=== PATIENT | female | born 1955 | race Caucasian/White ===

== ENCOUNTER → 2023-06-02 | Outpatient (CLI) | payer MEDICARE, BC, SELFPAY ==
[2023-06-02 12:04] LABS: Absolute Lymphocyte Count 1.28 X10^3/uL (0.83-4.51); Absolute Neutrophil Count 2.4 X10^3/uL (2.0-7.7); Basophil# 0.04 X10^3/uL; Basophil% 0.9 % (0-1); Eosinophil# 0.12 X10^3/uL; Eosinophils% 2.7 % (0-5); Hematocrit 40.2 % (37-47); Hemoglobin 13.6 g/dL (12.0-15.0); Lymphocyte # 1.28 X10^3/ul (0.83-4.51); Lymphocyte % 28.5 % (19-41); Mean Corp Hgb Conc 33.8 g/dL (32-36); Mean Corpuscular Hgb 31.5 pg (27.0-32.0); Mean Corpuscular Volume 93.1 fL (81-99); Mean Platelet Vol. 10.7 fl (6.2-12.0); Monocyte# 0.63 X10^3/uL; NRBC Flagged by Analyzer 0 % (0-5); Neutrophil # 2.41 X10^3/uL (2.7-7.7); Neutrophil % 53.7 % (47-70); Platelet Count 247 K/mm3 (150-450); RBC Distribution Width CV 12.4 % (11.6-14.6); RBC Distribution Width SD 42.5 fl (35.1-43.9); Red Blood Count 4.32 M/mm3 (4.2-5.4); White Blood Count 4.5 K/mm3 (4.4-11.0)
[2023-06-02 13:49] LABS: ALB/GLOB Ratio 0.9 RATIO (0.9-2.4); AST(SGOT) 20 U/L (15-37); Alanine Aminotransfer ALT/SGPT 20 U/L (13-56); Albumin, Serum 3.5 g/dL (3.2-5.0); Alkaline Phosphatase 64 U/L (45-117); Anion Gap 5 (5-15); BUN 14 mg/dL (7-18); BUN/Creat Ratio 18.3 RATIO (10-20); Calcium,Total 9.8 mg/dL (8.5-10.1); Chloride 107 mmol/L (98-107); Creatinine, Serum 0.77 mg/dL (0.55-1.02); EST Glomerular Filtration Rate 79 mL/min (>60); Est Glom Filt Rate - Afr Amer 96 mL/min (>60); Ferritin 116 ng/mL (8-252); Globulin 3.8 g/dL (2.2-4.2); Glucose 93 mg/dL (74-106); Potassium 3.4 mmol/L (3.5-5.1); Protein, Total 7.3 g/dL (6.4-8.2); Sodium Level 140 mmol/L (136-145); T4 Free Direct 0.84 ng/dL (0.76-1.46); Thyroid Stim Hormone (TSH) 2.39 uIU/mL (0.358-3.74)
[2023-06-03 04:07] LABS: Thyroid Peroxidase AB 14 IU/mL (0-34)
[2023-06-03 16:09] LABS: Anti-Nuclear Antibody Test Positive (.)
== END | disposition home or self-care (01) ==
LOC: MTLAB 10:49
PROVIDERS: Referring Provider Physician Assistant; Visit Provider Physician Assistant
DX: L57.8 Other skin changes due to chronic exposure to nonionizing radiation (principal); L82.1 Other seborrheic keratosis; D22.5 Melanocytic nevi of trunk; L81.4 Other melanin hyperpigmentation; L57.0 Actinic keratosis; U07.1 COVID-19; L95.9 Vasculitis limited to the skin, unspecified; Z71.89 Other specified counseling; Z85.828 Personal history of other malignant neoplasm of skin; Z08 Encounter for follow-up examination after completed treatment for malignant neoplasm; X32.XXXA Exposure to sunlight, initial encounter
CPT/HCPCS: 36415; 80053; 82728; 84439; 84443; 85025; 86038; 86376

== ENCOUNTER → 2025-02-01 | Outpatient (CLI) | payer MEDICARE, BC, SELFPAY ==
[2025-02-03 11:08] LABS: H. PYLORI STOOL AG Negative (Negative)
== END | disposition home or self-care (01) ==
LOC: LABSPEC 09:16
PROVIDERS: PCP Nurse Practitioner Family; Referring Provider Nurse Practitioner Acute Care; Visit Provider Nurse Practitioner Acute Care
DX: R10.13 Epigastric pain (principal); R14.0 Abdominal distension (gaseous); R11.10 Vomiting, unspecified
CPT/HCPCS: 87338

== ENCOUNTER → 2025-02-04 | Outpatient (CLI) | payer MEDICARE, BC, SELFPAY ==
--- NOTE | 2025-02-04 09:19 | US_ITS ---
PROCEDURE: ABDOMEN LIMITED 02/04/2025 REASON FOR EXAM: ABDOMINAL PAIN, CHOLELITHIASIS TECHNIQUE: Complete abdominal ultrasound thompson-scale images with color doppler. PATIENT PREPARATION: Per protocol COMPARISON: None FINDINGS: Liver: Enlarged 18.9 cm. Normal echogenicity. Hepatopetal flow. Gallbladder: 1.8 cm gallstone. Gallbladder wall is not thickened. No pericholecystic fluid. Negative James's sign. Common bile duct: Measures 2.5 mm. No intrahepatic biliary dilatation.. Pancreas: Unremarkable Kidneys: The right kidney measures 10.2 cm. No hydronephrosis. US/Abdomen Limited IMPRESSION: Hepatomegaly. Cholelithiasis without acute cholecystitis. Reading Location: [id number]
== END | disposition home or self-care (01) ==
PROVIDERS: PCP Nurse Practitioner Family; Referring Provider Nurse Practitioner Acute Care; Visit Provider Nurse Practitioner Acute Care
DX: R10.13 Epigastric pain (principal); R14.0 Abdominal distension (gaseous); R11.10 Vomiting, unspecified
CPT/HCPCS: 76705

== ENCOUNTER 2025-04-05 07:32 | Day surgery (SDC) | payer MEDICARE, BC, SELFPAY ==
--- NOTE | 2025-04-02 18:54 | PAT.ANE_ITS ---
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 When Was Last Pacemaker Check QUESTION #4 FULL TEXT: You/Your Family Experience fever (hyperthermia) with Anesthesia Last Oral Intake Last Oral intake: Last Oral Intake NPO since Meds taken in AM with sips of water? 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 Has anyone observed you stop No 04/02/25 11:35 breathing during sleep? STOP Results Negative 04/02/25 11:35 QUESTION #5 FULL TEXT : Do you snore loudly (louder than talking or can be heard through closed doors)? 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 Specify any problems Hx of Preganancy in last 3 No 04/02/25 11:35 Months Nurse Filling Out Transfusion VCHRISTIN 04/02/25 11:35 & Questions: Date: 04/02/25 04/02/25 11:35 Time: 11:36 04/02/25 11:35 Patient unable to answer at this time (ie. 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: /Reproductive Hx- production lapping machine operator Hx Now No 04/02/25 11:35 Gestational Age (in weeks): EDC: Hx Hx Para Hx Section SAB No 04/02/25 11:35 [facility] Medical History (Updated 04/02/25 @ 11:35 by Ginger Wood) Wears glasses Post-menopausal Cancer Injury of back Migraine headache History of hiatal hernia Non-smoker Asthma Shortness of breath on exertion History of stress test History of echocardiogram Hypertension Cataracts, bilateral Skin cancer Cervical cancer Home Medications ?Medication ?Instructions ?Recorded ?Last Taken ?Type albuterol sulfate 90 mcg/actuation 2 puff inhalation Q 4H PRN 01/29/25 Unknown History aerosol inhaler (Ventolin HFA) shortness of breath or wheezing fluticasone 250 mcg-salmeterol 50 1 inh inhalation BID 01/29/25 Unknown History mcg/dose blistr powdr for inhalation (Advair Diskus) fluticasone propionate 50 1 spray intranasal BID PRN 0 01/29/25 Unknown History mcg/actuation nasal SEASONALLY spray,suspension (Flonase Allergy Relief) montelukast 10 mg tablet 10 mg PO QDAY 01/29/25 Unkno wn History diphenhydramine 25 1 tab PO QHS PRN sedation Unknown History mg-acetaminophen 500 mg tablet (Acetaminophen PM) sod picosulf 10 mg-magnes 3.5 175 ml PO .COMPLEX 1 dos e #350 mL 01/30/25 Unknown Rx gram-citric 12 gram/175 mL oral solution (Clenpiq) hydrochlorothiazide 12.5 mg capsule 12.5 mg PO DAILY 0 04/02/25 Unknown History lisinopril 40 mg tablet 40 mg PO DAILY 04/02/25 Unkn own History Allergy/AdvReac Type Severity Reaction Status Date / Time Sulfa (Sulfonamide Allergy Intermediate Rash Verified 04/02/25 11:16 Antibiotics) Family History Father Prostate cancer Myocardial infarction Hypertension Mother Arthritis Hypertension High cholesterol Cancer skin Surgical History H/O bilateral breast reduction surgery S/P total abdominal hysterectomy S/P laser cataract surgery History of hip surgery History of bladder surgery History of back surgery Social History Smoking Status: Never smoker alcohol intake: never substance use type: does not use what type of physical activity do you participate in: walking frequency: 5-6 times per week Audit: Pertinent Findings Pertinent Findings EKG Perinent findings: January 21, 2025. Sinus bradycardia at 51 bpm. No significant change from EKG of July 09, 2021. Stress test pertinent findings: January 22, 2025. No inducible ischemia. No infarct. Normal left ventricular function. EF is 70%. Echo (EF%) pertinent findings: January 22, 2025. EF of 60%. 2+ TR and RVSP of 28 mmHg. 1-2+ AI. No aortic stenosis noted. Consult pertinent findings: March 26, 2025. [facility]. 1. [id number] historically on lisinopril and hydrochlorothia zide. This had to be discontinued for hypokalemia. Currently on lisinopril and amlodipine with borderline blood pressure control. 2. Supraventricular tachycardia and sinus bradycardia. Electrophysiology consult for recommendations regarding bradycardia and symptomatic SVT. Additional pertinent findings: January 22, 2025. Predominant underlying rhythm was sinus. 35 supraventricular tachycardia runs noted. Isolated supraventricular ectopics were rare less than 1%. Isolated ventricular ectopics were rare less than 1%. 3 diary episodes of lightheadedness and fluttering correlated with sinus and artifact. No atrial fibrillation noted. Recommendation Anesthesia Recommendation Anesthesia recommendation: OPTIMIZED for anesthesia
[2025-04-05] VITALS (8 sets, daily range): BP systolic 85–105; BP diastolic 61–76; PULSE 60–71; RESP 16–17; TEMP 36.2–37; O2SAT 92–100; BMI 22.1
--- OUTSIDE RECORDS SUMMARY | 2025-04-05 07:41 | XMS RPT_ITS | CCD ---
Author Organization [facility] Care Team Providers Care Laboratory Scientist Name Role Phone Unavailable Primary Care Provider Unavaileric VILLANUEVA, DR LUCILA Gonzales Attending Unavaila ble RICH, DR LUCILA Gonzales Primary Care Unavaila ble RICH, DR LUCILA Gonzales Admitting Unavaila ble Unavailable Primary Care Provider Unavailabl e Unavailable Primary Care Provider Unavaileric e Unavailable Primary Care Provider Unavaileric e CAMERON PARACHUTE HARNESS RIGGER-ANIVAL, [place] Attending Unajennifer BARNES PARACHUTE HARNESS RIGGER-AUDIO PRODUCTION MANAGER, [place] Primary Care Unavai lable CAMERON PARACHUTE HARNESS RIGGER-AUDIO PRODUCTION MANAGER, [place] Attending Unavai lable CAMERON PARACHUTE HARNESS RIGGER-AUDIO PRODUCTION MANAGER, [place] Primary Care Unavai lable CAMERON PARACHUTE HARNESS RIGGER-AUDIO PRODUCTION MANAGER, [place] Attending Unavai lable CAMERON PARACHUTE HARNESS RIGGER-AUDIO PRODUCTION MANAGER, [place] Primary Care Unavai lable Cameron FLORIAN, [place] Primary Care Provider [phone] Cameron FLORIAN, [place] Primary Care Provider Kirill VAMP MAKER-CLucy Attending Provider SELF Referring Unavailable CAMERON FLORENCIA Primary Care Unavailable CHERYL SOTO Attending Unavailable SELF Referring Unavailable CAMERON [place]ORENCIA Primary Care Unavailable SRINIVAS AGUILAR Attending Unavailable Cameron VAMP MAKER-C, [place] Primary Care Provider [phone] Kirill RAMIREZ-Lucy Burk Referring Provider CAMERON BLACK-ANIVAL, [place] Attending Unavai labyolande BARNES APRN-AUDIO PRODUCTION MANAGER, [place] Primary Care Unavai lable CAMERON RUTHN-AUDIO PRODUCTION MANAGER, [place] Primary Care Unavai lable CAMERON PARACHUTE HARNESS RIGGER-AUDIO PRODUCTION MANAGER, [place] Attending Jackelin Robin Attending Unavailable Cameron, [place] Primary Care Unavailable Lucy Roy Attending Unavailable Lucy Roy Referring Unavailable Schnegg, [place] Primary Care Unavailable Lucy Roy Attending Unavailable Lucy Ryo Referring Unavailable Sunday Maxwell Attending Unavailable [facility], [place] Primary Care Unavailable Lucy Roy Attending Unavailable SCHNEGG, [place] Referring Unavailable SCHNEGG, [place] Primary Care Unavailable SCHNEGG, [place] Primary Care Unavailable MEGGAN HUNT Admitting Unavailable FAYE PAYTON Attending Unavailable LUCILA CHAVEZ Unavailable MEGGAN HUNT Referring Unavailable SCHNEGG, [place] Primary Care Unavailable SCHNEGG, [place] Primary Care Unavailable LINDA CARTER Attending Unavailable SCHNEGG, [place] Primary Care Unavailable LINDA CARTER Referring Unavailable SCHNEGG, [place] Primary Care Unavailable Allergies Allergy Classification Reported Allergen(s) Allergy Type Date of Onset Reaction(s) Facility (1 source) Sulfonamides (Antibiotic) Drug allergy (disorder) [facility] Repository (1 source) Sulfonamides (Antibiotic) Propensity to adverse reactions to drug 0 Rash [facility] (10 sources) Sulfonamides (Antibiotic); Translations: [SULFA (SULFONAMIDE ANTIBIOTICS)] Drug Allergy 0 Rash [facility] (3 sources) Sulfonamides (Antibiotic) Allergy to substance 5 Rash [facility] (1 source) Sulfonamides (Antibiotic) Drug allergy (disorder) 5 [facility] Repository Medications Current Medications Medication Drug Class(es) Dates Sig (Normalized) Sig (Original) acetaminophen 500 mg / diphenhydrAMINE hydrochloride 25 mg oral tablet (3 sources) Histamine-1 Receptor Antagonist Start: 01-30-2025 Diphenhydramine-A cetaminophen (Acetaminophen Pm) 25-500 mg tablet Active 1 {tbl} PO AT BEDTIME January 30, 2025 12:00am [id number] actuat albuterol 0.09 mg/actuat metered dose inhaler (11 sources) beta2-Adrenergic Agonist Start: 01-29-2025 Albuterol Sulfate (Ventolin Hfa) 90 mcg/actuation HFA aerosol inhaler Active 2 NMA INHALATION Q4H as needed January 29, 2025 12:00am Start: 09-06-2023 take 2 puff(s) by in halation every four hours as needed albuterol HFA (PROVENTIL HFA, VENTOLIN HFA) 90 mcg/actuation inhaler INHALE TWO PUFFS EVERY 4 HOURS NEEDED FOR WHEEZE 09/06/2023 Active Comment on above: INHALE TWO PUFFS TRACY RY 4 HOURS NEEDED FOR WHEEZE cephalexin 500 mg oral capsule (2 sources) Cephalosporin Antibacterial Start: End: take 1 capsule by mouth three times daily cephALEXin (KEFLEX) 500 mg capsule Indications: Acute cystitis with hematuria Take 1 capsule by mouth three times a day for 7 days. 21 capsule 02/06/2025 02/13/2025 Active Fluticasone Propion-Salmeterol (11 sources) Corticosteroid, beta2-Adrenergic Agonist Start: Fluticasone Propion-Salmeterol (Advair Diskus) 250-50 mcg/dose blister with device Active 1 NMA INHALATION TWICE A DAY January 29, 2025 12:00am Start: 10-05-2023 take 1 puff(s) by in halation twice daily fluticasone-salmeterol (ADVAIR, WIXELA) 250-50 mcg/dose inhaler INHALE 1 PUFF TWICE DAILY FOR 30 DAYS 10/05/2023 Active Start: 10-05-2023 take 1 puff(s) by in halation twice daily fluticasone-salmeterol (ADVAIR, WIXELA) 250-50 mcg/dose inhaler INHALE 1 PUFF TWICE DAILY FOR 30 DAYS 0 10/05/2023 Active Comment on above: INHALE 1 PUFF TWICE DAILY FOR 30 DAYS hydroCHLOROthiazide 12.5 mg oral capsule (2 sources) Thiazide Diuretic Start: 2024 End: 2024 take 1 capsule by mouth once daily hydroCHLOROthiazide 12.5 mg capsule Take 1 capsule by mouth once daily. 30 capsule 03/26/2025 04/25/2025 Active hydroCHLOROthiazide 12.5 mg / lisinopril 20 mg oral tablet (6 sources) Thiazide Diuretic, Angiotensin Converting Enzyme Inhibitor Start: 2024 Lisinopril-Hydrochloroth iazide 20-12.5 mg tablet Active 1 {tbl} PO daily January 29, 2025 12:00am Start: 09-19-2023 take 1 tablet by shantelle th once lisinopril-hydroCHLOROthiazide (ZESTORET IC) 20-12.5 mg per tablet Take 1 tablet by mouth every afternoon. 09/19/2023 Active Comment on above: Take 1 tablet by shantelle th every afternoon. lisinopril 20 mg oral tablet (6 sources) Angiotensin Converting Enzyme Inhibitor Start: 04-04-2025 take 0.5 tablet by mouth once daily lisinopril (ZESTRIL) 20 mg tablet Take 0.5 tablets by mouth once daily. 90 tablet 04/04/2025 Active Start: 01-23-2025 End: 04-04-2025 take 1 tablet by mouth once daily lisinopril (ZESTRIL) 20 mg tablet Take 1 tablet by mouth once daily. 90 tablet 01/23/2025 04/04/2025 Discontinued (Adjust Sig - Block E-Cancel) montelukast 10 mg oral tablet (11 sources) Leukotriene Receptor Antagonist Start: 10-05-2023 take 1 tablet by mouth once montelukast (SINGULAIR) 10 mg tablet Take 1 tablet by mouth every afternoon. 10/05/2023 Active Comment on above: Take 1 tablet by shantelle th every afternoon. ondansetron 4 mg disintegrating oral tablet (3 sources) Serotonin-3 Receptor Antagonist Start: 01-30-2025 take 2 tablets by mouth every two hours as needed, then take 1 tablet by mouth every four hours as needed Ondansetron 4 mg tablet,disintegra ting Active 4 mg PO Q8H 5 January 30, 2025 12:00am take two tablets PO two hours prior to start of bowel prep and one every 4 hours as needed for N/V Sod Picosulf-Mag Ox-Citric Ac (3 sources) Start: 01-30-2025 Sod Picosulf-Mag Ox-Citric Ac (Clenpiq) 10 mg-3.5 gram- 12 gram/175 mL solution Active 175 mL PO .COMPLEX 350 January 30, 2025 12:00am 175 mL orally; as directed for split dose bowel prep traZODone hydrochloride 50 mg oral tablet (3 sources) Serotonin Reuptake Inhibitor Start: 02-26-2025 traZODone (DESYREL) 50 mg tablet Take 25 mg by mouth daily at bedtime. 02/26/2025 Active Completed/Discontinued Medications Medication Drug Class(es) Dates Sig (Normalized) Sig (Original) amLODIPine 5 mg oral tablet (2 sources) Dihydropyridine Calcium Channel Marian Start: 03-19-2025 End: 03-26-2025 take 1 tablet by mouth once daily amLODIPine (NORVASC) 5 mg tablet Take 1 tablet by mouth once daily. 03/19/2025 03/26/2025 Discontinued (Course of therapy completed) fluticasone propionate 0.05 mg/actuat metered dose nasal spray (6 sources) Corticosteroid Start: 01-29-2025 End: 03-26-2025 fluticasone (FLONASE) 50 mcg/actuation nasal spray Use 50 mcg in the nose two times a day. 01/29/2025 03/26/2025 Discontinued Start: 10-12-2024 End: 10-19-2024 take 1 spray(s) nasal route twice daily fluticasone (FLONASE) 50 mcg/actuation nasal spray Indications: Upper respiratory tract infection, unspecified type Use 1 [place] in each nostril two times a day for 7 days. 18.2 mL 10/12/2024 10/19/2024 Active gadobutrol (GADAVIST) injection 2 mL (1 source) Start: 09-26-2019 End: 09-26-2019 gadobutrol (GADAVIST) injection 2 mL iopamidol (ISOVUE-300) 61 % injection 25 mL (1 source) Start: 09-26-2019 End: 09-26-2019 iopamidol (ISOVUE-300) 61 % injection 25 mL pantoprazole 40 mg delayed release oral tablet (4 sources) Proton Pump Inhibitor Start: 02-04-2025 End: 03-26-2025 take 1 tablet by mouth once daily before breakfast pantoprazole DR (PROTONIX) 40 mg tablet Take 40 mg by mouth daily before breakfast. 02/05/2025 03/26/2025 Discontinued Problems Active Problems Problem Classification Problem Date Documented Da te Episodic/Chronic Abdominal pain (12 sources) Epigastric pain; Translations: [Epigastric pain] Onset: 5 01-30-2025 Episodic Asthma (11 sources) Asthma-chronic obstructive pulmonary disease overlap syndrome; Translations: [Asthma-chronic obstructive pulmonary disease overlap syndrome] Onset: 5 01-29-2025 Chronic Comment on above: a result of inhaling a herbacide sprayed at work in 1993 Cardiac dysrhythmias (5 sources) Supraventricular tachycardia; Translations: [SVT (supraventricular tachycardia) (HCC)] Onset: 5 03-26-2025 Chronic Cardiac dysrhythmias (11 sources) Sinus bradycardia; Translations: [Bradycardia, unspecified] Onset: 5 01-29-2025 Episodic Deficiency and other anemia (9 sources) Anemia; Translations: [Anemia, unspecified] Onset: 5 01-30-2025 Episodic Essential hypertension (14 sources) Essential (primary) hypertension; Translations: [Hypertensive disorder] Onset: 3 Chronic Fluid and electrolyte disorders (8 sources) Hypokalemia; Translations: [Hypokalemia] Onset: 5 01-29-2025 Episodic Genitourinary symptoms and ill-defined conditions (7 sources) Hematuria, unspecified; Translations: [Unspecified abnormal findings in urine] Onset: 3 Episodic Nausea and vomiting (7 sources) Vomiting; Translations: [Vomiting, unspecified] Onset: 5 01-30-2025 Episodic Nonspecific chest pain (6 sources) Chest pain; Translations: [Chest pain, unspecified] Onset: 5 01-21-2025 Episodic Osteoarthritis (6 sources) Arthritis; Translations: [Unspecified osteoarthritis, unspecified site] Onset: 5 01-30-2025 Chronic Other gastrointestinal disorders (6 sources) Abdominal bloating; Translations: [Abdominal distension (gaseous)] 01-30-2025 Episodic Other gastrointestinal disorders (1 source) Abdominal distension (gaseous); Translations: [Abdominal distension (gaseous)] Onset: 5 Episodic Other upper respiratory disease (3 sources) Seasonal allergy; Translations: [Other seasonal allergic rhinitis] 01-30-2025 Chronic Residual codes; unclassified (2 sources) Pain, unspecified; Translations: [Pain, unspecified] Onset: 1 Episodic Urinary tract infections (2 sources) Acute cystitis; Translations: [Acute cystitis with hematuria] Onset: 5 02-06-2025 Episodic Viral infection (1 source) COVID-19; Translations: [COVID-19] Onset: Past or Other Problems Problem Classification Problem Date Documented Da te Episodic/Chronic Other screening for suspected conditions (not mental disorders or infectious disease) (1 source) Encounter for screening mammogram for malignant neoplasm of breast; Translations: [Encounter for screening mammogram for malignant neoplasm of breast] Onset: 10-05-2024 Episodic Other upper respiratory infections (2 sources) Upper respiratory infection; Translations: [Acute upper respiratory infection, unspecified] Onset: 10-12-2024 10-12-2024 Episodic Results Test Name Value Interpretation Reference Range Facility Basic metabolic 2000 panelon 04-03-2025 Anion gap [Moles/Vol] 7 mmol/L Normal 5-16 [facility] Comment on above: Order Comment: Speci men Type: BLOOD SPECIMENOrdering Facility: [facility] Address: [address] [place] [address] Performed By: #### 2 4321-2, ####[facility] LABORATORYCLIA [id number] [place] [address] [place] Calcium [Mass/Vol] 9.6 mg/dL Normal 8.5-10.5 [facility] Comment on above: Order Comment: Speci men Type: BLOOD SPECIMENOrdering Facility: [facility] Address: [address] [place] [address] Performed By: #### 2 4321-2, ####[facility] LABORATORYCLIA [id number] [place] [address] [place] Chloride [Moles/Vol] 105 mmol/L Normal 98-107 [facility] Comment on above: Order Comment: Speci men Type: BLOOD SPECIMENOrdering Facility: [facility] Address: [address] [place] [address] Performed By: #### 2 4321-2, ####[facility] LABORATORYCLIA [id number] [place] [id number] [place] CO2 [Moles/Vol] 30 mmol/L Normal 21-32 [facility] Comment on above: Order Comment: Speci men Type: BLOOD SPECIMENOrdering Facility: [facility] Address: [address] [place] [address] Performed By: #### 2 4321-2, ####[facility] LABORATORYCLIA [id number] [place] [id number] [place] Creatinine [Mass/Vol] 0.87 mg/dL Normal 0.51-0.95 [facility] Comment on above: Order Comment: Speci men Type: BLOOD SPECIMENOrdering Facility: [facility] Address: [address] [place] [address] Result Comment: Lillian ents receiving either N-Acetylcysteine (NAC) or Metamizole prior to venipuncture, may have falsely depressed results. Performed By: #### 2 432-2, ####[facility] LABORATORYCLIA [id number] [place] [id number] [place] [facility] eGFRcr SerPlBld CKD-EPI 2020 72 mL/min/1.73m??? Normal >=60 [facility] Comment on above: Order Comment: Ektai keisha Type: BLOOD SPECIMENOrdering Facility: [facility] Address: [address] [place] [address] Result Comment: Jada mated Glomerular Filtration Rate (eGFR) is calculated using the 2020 CKD-EPI creatinine equation. This equation utilizes serum creatinine, sex, and age as parameters. The creatinine assay has traceable calibration to isotope dilution-mass spectrometry. Refer to KDIGO guidelines for clinical interpretation. In patients with unstable renal function, e.g. those with acute kidney injury, the eGFR may not accurately reflect actual GFR. Performed By: #### 2 4321-2, ####[facility] LABORATORYCLIA [id number] [place] [id number] [place] Glucose [Mass/Vol] 92 mg/dL Normal 70-100 [facility] Comment on above: Order Comment: Ektacornell keisha Type: BLOOD SPECIMENOrdering Facility: [facility] Address: [address] [place] [address] Result Comment: The [place] [employer] (ADA) provides guidance for cutoff values for fasting glucose and random glucose. The ADA defines fasting as no caloric intake for at least 8 hours. Fasting plasma glucose results between 100 to 125 mg/dL indicate increased risk for diabetes (prediabetes). Fasting plasma glucose results greater than or equal to 126 mg/dL meet the criteria for diagnosis of diabetes. In the absence of unequivocal hyperglycemia, results should be confirmed by repeat testing. In a patient with classic symptoms of hyperglycemia or hyperglycemic crisis, random plasma glucose results greater than or equal to 200 mg/dL meet the criteria for diagnosis of diabetes. Reference: Standards of Medical Care in Diabetes 2016, [place] [employer]. Diabetes Care. 2016.39(Suppl 1). Results may be falsely elevated after the administration of Sulfapyridine. Results may be falsely depressed after the administration of Sulfasalazine. Performed By: #### 2 43209-06, ####[facility] LABORATORYCLIA [id number] [place] [address] [place] Potassium [Moles/Vol] 3.7 mmol/L Normal 3.5-5.1 [facility] Comment on above: Order Comment: Speci men Type: BLOOD SPECIMENOrdering Facility: [facility] Address: [address] [place] [address] Performed By: #### 2 4320-10, ####[facility] LABORATORYCLIA [id number] [place] [address] [place] Sodium [Moles/Vol] 142 mmol/L Normal 136-145 [facility] Comment on above: Order Comment: Speci men Type: BLOOD SPECIMENOrdering Facility: [facility] Address: [address] [place] [address] Performed By: #### 2 4320-10, ####[facility] LABORATORYCLIA [id number] [place] [address] [place] Urea nitrogen [Mass/Vol] 17 mg/dL Normal 7-26 [facility] Comment on above: Order Comment: Speci men Type: BLOOD SPECIMENOrdering Facility: [facility] Address: [address] [place] [address] Performed By: #### 2 4320-10, 06820-7 ####[facility] LABORATORYCLIA [id number] [place] [id number] [facility] Danni 04-03-2025 GERTRUDIS Telephone (FRANDY) MARCI GALAN Pepper ([id number]) 1955 F Date Time Provider Department 04/03/25 LINDA CARTER During your visit today, we recorded the following information about you: Winter Soto MA 04/03/2025 9:21 AM Signed Patient dropped off BP log: JULY Salazar Angelica M, WAYNE.AUDIO PRODUCTION MANAGER 04/04/2025 7:06 AM Signed Received updated blood pressure readings from patient after stopping amlodipine and restarting hydrochlorothiazide 12.5 mg along with continuing lisinopril 20 mg daily on 03/26/2025. Some of these blood pressures are on the lower side. Please see how she is feeling. If she is feeling fine would leave medication regimen as is. If she is having fatigue or feeling lightheaded would reduce lisinopril dose. Blood work done 04/03/2025 for monitoring with medication change looks fine. No concerns with kidney function or electrolytes. Thank you, iLnda Carter (Angel), MSN, PARACHUTE HARNESS RIGGER, AUDIO PRODUCTION MANAGER Alfie Fernández RN 04/04/2025 9:11 AM Signed Call placed to Marci at this time. She was informed of Mau's comments and recommendations in detail as below. She admits to feeling general fatigue with the lower BP readings. She was advised that she could trial decreasing her Lisinopril from 20mg PO daily to 10mg (1/2 tablet) PO daily. She was encouraged to continue to monitor her BP and check in with Mau in about one week regarding her BP log/measurements. She was informed of the results of her labs performed yesterday, for which she expressed understanding. She was encouraged to call the office for any questions or concerns. She verbalized understanding and expressed appreciation for the call. Alfie Fernández, RN April 04, 2025 9:08 AM Linda Carter APRN.AUDIO PRODUCTION MANAGER 04/04/2025 10:26 AM Signed Updates noted. Medication list already updated to reflect reduce lisinopril dose of 10 mg daily. Will await symptom and blood pressure update. Thank you, Linda Carter (Angel), MSN, PARACHUTE HARNESS RIGGER, AUDIO PRODUCTION MANAGER Allergies As of Date: 04/03/2025 Noted Allergy Reaction SULFA (SULFONAMIDE ANTIBIOTICS) 09/26/2019 2 - Rash Date Reviewed: 02/06/2025 Reviewed by: Lili Coles LPN - Fully Assessed Reason for Visit: Results [95] Cmt: Blood pressures Order(s):lisinopril (ZESTRIL) 20 mg tabletTake 0.5 tablets by mouth once daily.Disp: 90 tabletRfl: 0 Prescriptions as of 04/04/2025 - lisinopril (ZESTRIL) 20 mg tablet Take 0.5 tablets by mouth once daily. - hydroCHLOROthiazide 12.5 mg capsule Take 1 capsule by mouth once daily. - traZODone (DESYREL) 50 mg tablet Take 25 mg by mouth daily at bedtime. - albuterol HFA (PROVENTIL HFA, VENTOLIN HFA) 90 mcg/actuation inhaler INHALE TWO PUFFS EVERY 4 HOURS NEEDED FOR WHEEZE - fluticasone-salmetero l (ADVAIR, WIXELA) 250-50 mcg/dose inhaler INHALE 1 PUFF TWICE DAILY FOR 30 DAYS - montelukast (SINGULAIR) 10 mg tablet Take 1 tablet by mouth every afternoon. Problem List As Of Date 04/03/2025 Noted Resolved Chest pain, moderate coronary artery risk [R07.*01/21/2025 HTN (hypertension) [I10] 01/22/2025 Asthma with chronic obstructive pulmonary disea*01/22/2025 Acute hypokalemia [E87.6] 01/22/2025 Sinus bradycardia [R00.1] 01/22/2025 Anemia [D64.9] 03/25/2025 Arthritis [M19.90] 03/25/2025 Epigastric pain [R10.13] 02/07/2025 SVT (supraventricular tachycardia) (HCC) [I47.1* Prescriptions ordered this encounter Disp Refills Start End LISINOPRIL 20 MG TABLET 90 t* 0 04/04/2025 Class: Med Update Route: PO Sig: Take 0.5 tablets by mouth once daily. Cosign required by LINDA CARTER[[id number]] Medications Discontinued During This Encounter Prescriptions - lisinopril (ZESTRIL) 20 mg tablet (Discontinued) Take 40 mg by mouth once daily. Encounter Status:Closed by LINDA CARTER on 04/04/25 Normal [facility] Magnesium SerPl-mCncon 04-03 Magnesium [Mass/Vol] 1.9 mg/dL Normal 1.6-2.6 [facility] Comment on above: Order Comment: Speci men Type: BLOOD SPECIMENOrdering Facility: [facility] Address: [address] [place] [address] Performed By: #### 2 4321-2, 08606-5 ####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 When Was Last Pacemaker Check QUESTION #4 FULL TEXT: You/Your Family Experience fever (hyperthermia) with Anesthesia Last Oral Intake Last Oral intake: Last Oral Intake NPO since Meds taken in AM with sips of water? 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 Has anyone observed you stop No 04/02/25 11:35 breathing during sleep? STOP Results Negative 04/02/25 11:35 QUESTION #5 FULL TEXT : Do you snore loudly (louder than talking or can be heard through closed doors)? 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 Specify any problems Hx of Preganancy in last 3 No 04/02/25 11:35 Months Nurse Filling Out Transfusion VCHRISTIN 04/02/25 11:35 Questions: Date: 04/02/25 04/02/25 11:35 Time: 11:36 04/02/25 11:35 Patient unable to answer at this time (ie. confused, unrespo /Reproductio n History /Reproductiv e History - snow plow operator: /Reproductiv e Hx- snow plow operator Hx Now No 04/02/25 11:35 Gestational Age (in weeks): EDC: Hx Hx Para Hx Section SAB No 04/02/25 11:35 [facility] Medical History (Updated 04/02/25 @ 11:35 by Ginger Wood) Wears glasses Post-menopausal Cancer Injury of back Migraine headache History of hiatal hernia Non-smoker Asthma Shortness of breath on exertion History of stress test History of echocardiogram Hypertension Cataracts, bilateral Skin cancer Cervical cancer Home Medications ???Medication ???Instructions ???Recorded ???Last Taken ???Type albuterol sulfate 90 mcg/actuation 2 puff inhalation Q4H PRN Unknown History aerosol inhaler (Ventolin HFA) shortness of breath or wheezing fluticasone 250 mcg-salmeterol 50 1 inh inhalation BID 01/29/25 Unk nown History mcg/dose blistr powdr for inhalation (Advair Diskus) fluticasone propionate 50 1 spray intranasal BID PRN 5 Unknown History mcg/actuation nasal SEASONALLY spray,suspension (Flonase Allergy Relief) (more content not included)... Normal [facility] Vicki 03-26-2025 CNOV Office Visit (CARMOB ) MARCI GALAN ([id number]) 1955 F Date Time Provider Department 03/26/25 1:30 PM LINDA CARTER During your visit today, we recorded the following information about you: Pulse Blood pressure Weight Height 73/minute 130/88 64.9 kg 1.676 m Linda Carter APRN.AUDIO PRODUCTION MANAGER 04/04/2025 7:02 AM Addendum Heart, Vascular and Thoracic Winifred Zoya Corrales Department of Cardiovascular Medicine [facility] OUTPATIENT VISIT 03/26/2025 HOSPITAL FOLLOW-UP (new to [facility] office) PRIMARY CARE PHYSICIAN: Florencia Barnes, AUDIO PRODUCTION MANAGER [address] [facility] [address] [place] [address] CHIEF COMPLAINT: Hospital follow-up HISTORY OF PRESENT ILLNESS: Marci Galan is a 69 year old female patient known to Dr Chavez (last seen by Dr Chavez as inpatient cardiology consult on 01/22/2025) with PMHx hypertension, basal cell carcinoma, cervical cancer s/p total hysterectomy, and asthma. Marci is here today for general cardiology follow-up visit. Today is my first time meeting/caring for Marci. Admitted to [facility] 01/21/2025 - 01/22/2025 for epigastric pain/chest pain after eating smoothie. Prior heart cath decades ago reported as normal. Echocardiogram 01/22/2025 showed normal EF of 60%, moderate TR. NM MPI 01/22/2025 normal without inducible ischemia. Hydrochlorothiazide discontinued for episodes of feeling lightheaded with standing. Cardiac medications at discharge 01/22/2025: - Lisinopril 20 mg daily Type of Monitor: Extended Monitoring-Zio Patch Enrollment Dates: 01/22/2025-02/05/2025 IRHYTHM FINDINGS: Patient had a min HR of 40 bpm around 4:54 am , max HR of 144 bpm, and avg HR of 67 bpm. Predominant underlying rhythm was Sinus Rhythm. 35 Supraventricular Tachycardia runs occurred, the run with the fastest interval lasting 12 beats with a max rate of 194 bpm, the longest lasting 17.7 secs with an avg rate of 109 bpm. Isolated SVEs were rare (<1.0%), SVE Couplets were rare (<1.0%), and SVE Triplets were rare (<1.0%). Isolated VEs were rare (<1.0%), VE Couplets were rare (<1.0%), and no VE Triplets were present. 3 dairy episodes - light headed /flutter correlated with sinus and artifact. Lot of artifacts noted in the monitor. No a.fib noted. Since discharge, she was treated for UTI by PCP. Marci reports feeling good from a cardiac standpoint. No chest pain, shortness of breath, orthopnea, cough, edema, PND, syncope, or bleeding. Does have palpitations. Occasional lightheaded episodes and palpitations that on monitor correlated with SVT. Lisinopril increased to 40 mg daily after discharge by PCP because blood pressure was 162 systolic. Historically her blood pressure runs low 100s systolic when was on lisinopril-HCTZ 20-12.5 which she had been on for many years. No added salt, no fast food, no fried foods, lots of vegetables, does not eat meat, does eat diary, also eats occasional pickled egg. Has been told that she had/passed gallstone after discharge. Smoking: No. Alcohol: No. Recreational drug use: No. Cardiac medications reconciled today with patient and are as per medication list. STOP BANG Questionnaire 1. Snoring Do you snore loudly (louder than talking or loud enough to be heard through closed doors)? NO 2. Tired Do you often feel tired, fatigued, or sleepy during daytime? YES 3. Observed Has anyone observed you stop breathing during your sleep? NO 4. Blood Pressure Do you have or are you being treated for high blood pressure? YES 5. BMI BMI more than 35 kg/m2? NO 6. Age Age over 50 yr old? YES 7. Neck circumference Neck circumference greater than 40 cm? NO 8. Gender Gender male? NO * Neck circumference is measured by staff High risk of ANGIE: answering yes to three or more items Low risk of ANGIE: answering yes to less than three items PAST MEDICAL HISTORY: PAST MEDICAL HISTORY Diagnosis Date Anemia 03/25/2025 Arthritis 03/25/2025 Asthma with chronic obstructive pulmonary disease (COPD) (HCC) 01/22/2025 Cervical cancer (HCC) Chest pain, moderate coronary artery risk 01/21/2025 Epigastric pain 02/07/2025 HTN (hypertension) 01/22/2025 Sinus bradycardia 01/22/2025 Skin cancer PAST SURGICAL HISTORY: PAST SURGICAL HISTORY Procedure Laterality Date BACK SURGERY HX 2000 BLADDER SURGERY HX HIP SURGERY HX Right 2019 POST-CATARACT LASER SURGERY Bilateral 2022 TOTAL ABDOM HYSTERECTOMY FAMILY HISTORY: FAMILY HISTORY Problem Relation Age of Onset Prostate Cancer Father SOCIAL HISTORY: Social History Tobacco Use Smoking status: Never Smokeless tobacco: Never Vaping Use Vaping status: Never Used Substance Use Topics Alcohol use: Never Drug use: Never ALLERGIES: Sulfa (Sulfonamide Antibiot (more content not included)... [facility] .GFRon 03-19-2025 Estimated Glomerular Filtration Rate 82 ml/min/1.73sqm [facility] MAIN Comment on above: Result Comment: Stages of Chronic Kidney Disease (CKD) Stage Description eGFR(ml/min/1.73 sq.m.) CKD 1 Normal kidney function or >=90 normal kindney function with possible kidney damage (ex. Proteinuria) CKD 2 Kidney damage with mild loss 60-89 of kidney function CKD 3a Mild to moderate loss of kidney 45-59 function CKD 3b Moderate to severe loss of 30-44 of kindey function CKD 4 Severe loss of kidney function 15-29 CKD 5 Kidney failure <15 Note: (go live 2024) the eGFR calculation was updated to the 2020 CKD-EPI creatinine equation without a race factor to calculate the eGFR results. Performed By: #### B MP, GFR #### [address] [address] BMPon 03-19-2025 BUN/Creatinine Ratio 17.9 ratio Normal 10.0-22.0 [facility] MA[facility] Comment on above: Performed By: #### B MP, GFR #### [address] [address] Calcium [Mass/Vol] 9.4 mg/dL Normal 8.7-10.4 [facility] MAIN Comment on above: Performed By: #### B MP, GFR #### [address] [address] Chloride [Moles/Vol] 109 mmol/L Normal 98-110 [facility] Comment on above: Performed By: #### B MP, GFR #### [address] [address] CO2 [Moles/Vol] 27 mmol/L Normal 22-32 [facility] Comment on above: Performed By: #### B MP, GFR #### [address] [address] Creatinine [Mass/Vol] 0.78 mg/dL Normal 0.50-1.20 [facility] MA[facility] Comment on above: Result Comment: Test ing performed on [employer] analyzer using enzymatic creatinine methodology. Performed By: #### B MP, GFR #### [address] [address] Electrolyte Balance 9.0 mEq/L Normal 4.0-15.0 [facility] MA[facility] Comment on above: Performed By: #### B MP, GFR #### [address] [address] Glucose [Mass/Vol] 84 mg/dL Normal 82-115 [facility] MAIN Comment on above: Performed By: #### B MP, GFR #### [address] [address] Potassium [Moles/Vol] 4.3 mmol/L Normal 3.5-5.0 [facility] Comment on above: Performed By: #### B MP, GFR #### [address] [address] Sodium [Moles/Vol] 145 mmol/L Normal 136-145 [facility] MA[facility] Comment on above: Performed By: #### B MP, GFR #### [address] [address] Urea nitrogen [Mass/Vol] 14.0 mg/dL Normal 8.0-22.0 [facility] MA[facility] Comment on above: Performed By: #### B MP, GFR #### [address] [address] Danni 02-07-2025 [place]N Telephone [place] ADAMAMARCI COREA ([id number]) 1955 F Date Time Provider Department 02/07/25 AURELIA SAEZ During your visit today, we recorded the following information about you: Aurelia Saez APRN.AUDIO PRODUCTION MANAGER 02/07/2025 1:29 PM Signed Please advise urine culture shows possible contamination. Recommending to finish out out Keflex but if symptoms persist or worsen follow up with PCP. Thanks! Allergies As of Date: 02/07/2025 Noted Allergy Reaction SULFA (SULFONAMIDE ANTIBIOTICS) 09/26/2019 2 - Rash Date Reviewed: 02/06/2025 Reviewed by: Lili Coles LPN - Fully Assessed Prescriptions as of 02/08/2025 - cephALEXin (KEFLEX) 500 mg capsule Take 1 capsule by mouth three times a day for 7 days. - lisinopril (ZESTRIL) 20 mg tablet Take 1 tablet by mouth once daily. - albuterol HFA (PROVENTIL HFA, VENTOLIN HFA) 90 mcg/actuation inhaler INHALE TWO PUFFS EVERY 4 HOURS NEEDED FOR WHEEZE - fluticasone-salmetero l (ADVAIR, WIXELA) 250-50 mcg/dose inhaler INHALE 1 PUFF TWICE DAILY FOR 30 DAYS - montelukast (SINGULAIR) 10 mg tablet Take 1 tablet by mouth every afternoon. Problem List As Of Date 02/07/2025 Noted Resolved Chest pain, moderate coronary artery risk [R07.*01/21/2025 HTN (hypertension) [I10] 01/22/2025 Asthma with chronic obstructive pulmonary disea*01/22/2025 Acute hypokalemia [E87.6] 01/22/2025 Sinus bradycardia [R00.1] 01/22/2025 Encounter Status:Closed by AURELIA SAEZ on 02/08/25 [facility] Bacteria Ur Culton Bacteria identified Cx Nom (U) ORGANISM ID: 1 10,000 -<50,000 CFU/ml Mixed microbiota No further workup. Mixed microbiota can be due to???urine???contamin ation with skin bacteria at time of collection or presence of a long-term urinary catheter. If a new culture is needed, please consider re-education of the patient on proper midstream collection technique or straight catheterization for???urine???collect ion. [facility] Comment on above: Performed By: #### 6 30-4 #### [facility] CLIA [id number] [address] [place] [address] OF [facility] CNOVon 02-06-2025 CNOV Office Visit (UCUPNO ) MARCI GALAN ([id number]) 1955 F Date Time Provider Department 02/06/25 9:40 AM CHERYL SOTO During your visit today, we recorded the following information about you: Temperature Pulse Respiration Blood pressure 97.9 degrees 63/minute 18/minute 135/87 Weight 66.3 kg Lili Coles LPN 02/06/2025 10:03 AM Signed Urine sample collected. VINCE Chavez Jessica L, PARACHUTE HARNESS RIGGER.AUDIO PRODUCTION MANAGER 02/06/2025 10:03 AM Signed [facility] February 06, 2025 HPI Patient presents to [facility] for 1 day history of urinary tract infection symptoms. Patient states throughout the night she developed burning with urination as well as urgency and frequency. Patient states she completed a cleanse 1 week ago. States that she was on the cleanse for 10 days. Was able to eat fruit as well as have water and pureed vegetables. Patient states she lost 8 pounds during this cleanse. States that she has since gained that weight back. Has had lower back pain. Denies any fever. States she started the cleanse when diagnosed with gallstones recently. Denies any hematuria, fever, vomiting, pelvic pressure. PAST MEDICAL HISTORY Diagnosis Date Cervical cancer (HCC) Skin cancer PAST SURGICAL HISTORY Procedure Laterality Date BACK SURGERY HX 1999 BLADDER SURGERY HX HIP SURGERY HX Right 2019 POST-CATARACT LASER SURGERY Bilateral 2022 TOTAL ABDOM HYSTERECTOMY FAMILY HISTORY Problem Relation Age of Onset Prostate Cancer Father Social History Tobacco Use Smoking status: Never Smokeless tobacco: Never Vaping Use Vaping status: Never Used Substance Use Topics Alcohol use: Never Drug use: Never ALLERGIES Allergen Reactions Sulfa (Sulfonamide * Rash There is no immunization history on file for this patient. Current Medications lisinopril (ZESTRIL) 20 mg tablet Take 1 tablet by mouth once daily. albuterol HFA (PROVENTIL HFA, VENTOLIN HFA) 90 mcg/actuation inhaler INHALE TWO PUFFS EVERY 4 HOURS NEEDED FOR WHEEZE fluticasone-salmetero l (ADVAIR, WIXELA) 250-50 mcg/dose inhaler INHALE 1 PUFF TWICE DAILY FOR 30 DAYS montelukast (SINGULAIR) 10 mg tablet Take 1 tablet by mouth every afternoon. Review of Systems Constitutional: Negative for fever. Genitourinary: Positive for dysuria and frequency. Negative for flank pain, hematuria and pelvic pain. Vital Signs BP 151/87 Pulse 63 Temp 97.9 Resp 18 Wt 146 lb 2.6 oz (66.3kg) SpO2 97% Physical Exam Vitals reviewed. Constitutional: General: She is not in acute distress. Appearance: Normal appearance. She is not ill-appearing, toxic-appearing or diaphoretic. HENT: Head: Normocephalic and atraumatic. Abdominal: Tenderness: There is no right CVA tenderness or left CVA tenderness. Skin: General: Skin is warm and dry. Capillary Refill: Capillary refill takes less than 2 seconds. Neurological: Mental Status: She is alert and oriented to person, place, and time. Psychiatric: Mood and Affect: Mood normal. Behavior: Behavior normal. Thought Content: Thought content normal. Judgment: Judgment normal. ASSESSMENT/PLAN: 1. Acute cystitis with hematuria - ICD9: 595.0, ICD10: N30.01 (primary diagnosis) Increase fluids Avoid caffeine or carbonated drinks at this time Take all medications as ordered ER right away if you note a fever over 100.7, nausea, vomiting, and low back pain. Go to ER - CEPHALEXIN 500 MG CAPSULE 2. Dysuria - ICD9: 788.1, ICD10: R30.0 acute - UA positive for navdeep esterase, hematuria, and proteinuria - Send urine for culture - Begin treatment with Keflex for 7 days - Patient education for prevention given - BACTERIAL CULTURE, URINE - UA DIP, URINE (POC) Cheryl Soto APRN.CNP Medical Decision Making: Problems: Low: 2+ self-limited or minor problems Data: Unique test result(s) reviewed: 2 Unique test(s) ordered: 2 Risk: Moderate: Drug management Medical Decision Making Level: 4 - Moderate Cheryl Soto APRN.CNP The patient/caregiver consented to the use of [employer] software for draft documentation of the visit consistent with [facility]?s Notice of Privacy Practices. Cheryl Soto APRN.CNP 02/06/2025 9:59 AM Addendum Preliminary urine testing completed in [facility] is indicative of a Urinary Tract Infection. Increase fluids Avoid caffeine or carbonated drinks at this time Take all medications as ordered ER right away if you note a fever over 100.7, nausea, vomiting, and low back pain. Go to ER Referring Provider: SELF [[id number]] Allergies As of Date: 02/06/2025 Noted Allergy Reaction SULFA (SULFONAMIDE ANTIBIOTICS) 09/26/2019 2 - Rash Date Reviewed: 02/06/2025 Reviewed by: Lili Coles LPN - Fully Assessed Reason for Visit: UTI [116] Cmt: Burning/frequency/urg ency/pressure,started throughou (more content not included)... Normal [facility] UA DIP, URINE (POC)on 2024 BILIRUBIN UA (POCT) Negative Negative [facility] CLARITY UA (POCT) Slightly Cloudy Cl [facility] COLOR UA (POCT) Yellow [facility] GLUCOSE UA (POCT) Negative Negative mg/dL [facility] Hemoglobin Ql (U) Large Abnormal Negative [facility] Interpretation and review of laboratory results Abnormal [facility] KETONE UA (POCT) Negative Negative mg/dL [facility] LEUKOCYTES UA (POCT) Moderate Abnormal Negative [facility] NITRITE UA (POCT) Negative Negative [facility] PH UA (POCT) 6 4.5 - 8.0 [facility] Protein Ql (U) 100 mg/dL Abnormal Negative [facility] SPECIFIC GRAVITY UA (POCT) 1.025 1 .005 - 1.030 [facility] UROBILINOGEN UA (POCT) 0.2 Keturah l E.U./dL [facility] Location:[facility], [address] [place] [address], [address] [place] [address] POINT OF CARE [facility] Abdomen Limitedon 02-04-2025 Abdomen Limited [facility] [address] [place], [place] [id number] Abdomen Limited MR#: [id number] Acct: [id number] Name: MARCI GALAN Rep #: [id number] : 1955 F 69 From: Mike Byrne PCP: NEW Gallegos Status: REG CLI Study: Abdomen Limited Date of Exam: 02/04/25 Exam# [id number] Ordering Dr: Lucy Roy PROCEDURE: ABDOMEN LIMITED 02/04/2025 REASON FOR EXAM: ABDOMINAL PAIN, CHOLELITHIASIS TECHNIQUE: Complete abdominal ultrasound thompson-scale images with color doppler. PATIENT PREPARATION: Per protocol COMPARISON: None FINDINGS: Liver: Enlarged 18.9 cm. Normal echogenicity. Hepatopetal flow. Gallbladder: 1.8 cm gallstone. Gallbladder wall is not thickened. No pericholecystic fluid. Negative James's sign. Common bile duct: Measures 2.5 mm. No intrahepatic biliary dilatation.. Pancreas: Unremarkable Kidneys: The right kidney measures 10.2 cm. No hydronephrosis. US/Abdomen Limited IMPRESSION: Hepatomegaly. Cholelithiasis without acute cholecystitis. Reading Location: [id number] CC: NEW Roy; NEW [place] Ranger Technician: Signed Normal [facility] H. PYLORI STOOL AGon 025 H PYLORI STL AG Negative Normal Negative [facility] Comment on above: Result Comment: Perf ormed at: - [facility] [address] [id number] Farrowing Manager: Jose Luis Bartlett PhD, Phone: [phone] Performed By: #### L [id number] #### [facility] [address] [place], [place], [id number] Stool Helicobacter pylori an tigen detection by immunoassayOrdered By: Lucy Roy on 02-01-2025 H. pylori Ag IA Ql (Stl) Negative Negative [facility] Comment on above: Performed at: [address] [id number] Director: Jose Luis Bartlett PhD, Phone: [phone] Gastroenterology Visit Repor ton 01-30-2025 Gastroenterology Visit Report [facility] [address] [place] [address] OFFICE VISIT Date of Service: 01/30/25 MR#: [id number] Acct: [id number] Name: MARCI GALAN Rep #: [id number] : 1955 Provider: NEW toro Age/Sex: 69/F Location: [facility] Status: Signed Intake Vital Signs 01/30/25 09:37 Height 5 ft 6 in Weight: 152 lb 4 oz BMI 24.5 BP 131/75 H Respiration 16 Pulse 71 Pulse Oximetry (%) 97 Oxygen Delivery Method room air Intake Visit Reasons: Pre Colon Hand Upper And Bottom Lacer Required: No Accompanied by: Self Is patient in pain?: No Allergies Sulfa (Sulfonamide Antibiotics) Allergy (Intermediate, Verified 01/29/25 15:58) Rash Medications ???Medication ???Instructions ???Recorded ???Confirmed ???Type albuterol sulfate 90 mcg/actuation 2 puff inhalation Q4H PRN 01/29/25 History aerosol inhaler (Ventolin HFA) fluticasone 250 mcg-salmeterol 50 1 inh inhalation BID 01/29/25 History mcg/dose blistr powdr for inhalation (Advair Diskus) fluticasone propionate 50 1 spray intranasal BID 01/29/25 History mcg/actuation nasal spray,suspension (Flonase Allergy Relief) lisinopril 20 1 tab PO QDAY 01/29/25 01/29/25 Hi story mg-hydrochlorothiazid e 12.5 mg tablet montelukast 10 mg tablet 10 mg PO QDAY 01/29/25 01/29/25 Hi story diphenhydramine 25 1 tab PO QHS 01/30/25 01/30/25 His tory mg-acetaminophen 500 mg tablet (Acetaminophen PM) ondansetron 4 mg disintegrating 4 mg PO Q8H #5 tabs 01/30/2501/30 Rx tablet sod picosulf 10 mg-magnes 3.5 175 ml PO .COMPLEX 1 dose #350 mL 01/30/25 01/30/25 Rx gram-citric 12 gram/175 mL oral solution (Clenpiq) Have you fallen in the past year?: No Nurse's Note: She has a bowel movement every day but every 8 weeks she will have an episode of diarrhea then will start vomiting right after for about half an hour. Has started having reflux on a more regular basis. [facility] Medical History Cataracts, bilateral Chest pain Upper respiratory infection Skin cancer Cervical cancer Surgical History H/O bilateral breast reduction surgery S/P total abdominal hysterectomy S/P laser cataract surgery History of hip surgery History of bladder surgery History of back surgery Family History Father Prostate cancer Myocardial infarction Hypertension Mother Arthritis Hypertension High cholesterol Cancer skin Social History Smoking Status: Never smoker alcohol intake: never substance use type: does not use what type of physical activity do you participate in: walking frequency: 5-6 times per week HPI HPI Details: MARCI GALAN, is a 69 F who presents to the office today for LABS 01/22/2025 HGB 10.9 06/02/2023 HGB 13.6 - Celiac labs were negative in 2017 CT A P 08/18/2023 Colonic diverticulosis without evidence of acute diverticulitis. Cholelithiasis. Colon last about 10 years ago and revealed polyps - denies any family h/o colon CA - reports she usually has a BM every day, usually formed, can have marble like stools - she feels she fully evacuates - every 2-3 months she has terrible abdominal pain, followed by diarrhea and emesis - this is a lower abdominal pain - Citrucel and Metamucil cause more gas and bloating - occasional BRBPR and believes this is for hemorrhoids - c/o epigastric pain, chest pain last week - was seen in ER and cardiac w/u per patient was unremarkable - this was different from her sporadic episodes of lower abdominal pain - she did have pizza earlier in the day prior to onset of pain - she reports doing a colon cleanse for 10 days and during that time she was only able to eat any organic fruit blended, vegetables pureed, she took supplements for removal of metal, and parasites, she reports drinking a binder also, she completed this 5 days prior to episode on 01/21 with acute chest/epigastric pain - occasional Aleve - one cup of tea daily - she is a non-smoker - denies any EtOH - she avoid fried foods ROS Const Constitutional: Positive for fatigue; No fever(s) or weight change ENT ENT: No difficulty swallowing Gastro GI: Positive for bloating, constipation, diarrhea, heartburn, nausea/dyspepsia and vomiting; No abdominal pain, belching, change in bowel habits, change in stool character, coffee ground emesis, cramping, difficulty swallowing, feeling full early, excessive flatus, incontinent of stools, Vomiting blood/hematemesis, Blood in stool, loose stools, Black,tarry stools, pain with (more content not included)... Normal [facility] 01-23-2025 [facility] Telephone ([facility]) MARCI GALAN ([id number]) 1955 F Date Time Provider Department 01/23/25 CARTER, LINDA M CARMOB During your visit today, we recorded the following information about you: Natalya Martinez 01/23/2025 11:59 AM Signed Patient called to schedule hosp f/up appt. She is scheduled w/ Mau Carter on 03/26/25 @ 1:30 pm. Allergies As of Date: 01/23/2025 Noted Allergy Reaction SULFA (SULFONAMIDE ANTIBIOTICS) 09/26/2019 2 - Rash Date Reviewed: 01/22/2025 Reviewed by: Macarena Neri RN - Fully Assessed Reason for Visit: Appointment [186] Cmt: Hosp f/up Prescriptions as of 01/23/2025 - lisinopril (ZESTRIL) 20 mg tablet Take 1 tablet by mouth once daily. - albuterol HFA (PROVENTIL HFA, VENTOLIN HFA) 90 mcg/actuation inhaler INHALE TWO PUFFS EVERY 4 HOURS NEEDED FOR WHEEZE - fluticasone-salmetero l (ADVAIR, WIXELA) 250-50 mcg/dose inhaler INHALE 1 PUFF TWICE DAILY FOR 30 DAYS - montelukast (SINGULAIR) 10 mg tablet Take 1 tablet by mouth every afternoon. Problem List As Of Date 01/23/2025 Noted Resolved Chest pain, moderate coronary artery risk [R07.*01/21/2025 HTN (hypertension) [I10] 01/22/2025 Asthma with chronic obstructive pulmonary disea*01/22/2025 Acute hypokalemia [E87.6] 01/22/2025 Sinus bradycardia [R00.1] 01/22/2025 Encounter Status:Closed by NATALYA MARTINEZ on 01/23/25 Normal [facility] Basic metabolic 2000 panelon 01-22-2025 Anion gap [Moles/Vol] 7 mmol/L Normal 5-16 [facility] Comment on above: Order Comment: Speci men Type: BLOOD SPECIMENOrdering Facility: [facility] Address: [address] [place] [address] Performed By: #### 2 4321-2, 13521-7, 88633-3, HSTROP ####[facility] LABORATORYCLIA [id number] [place] [address] [place] Calcium [Mass/Vol] 9.4 mg/dL Normal 8.5-10.5 [facility] Comment on above: Order Comment: Speci men Type: BLOOD SPECIMENOrdering Facility: [facility] Address: [address] [place] [address] Performed By: #### 2 4321-2, 97956-5, , HSTROP ####[facility] LABORATORYCLIA [id number] [place] [id number] [place] Chloride [Moles/Vol] 108 mmol/L High 98-107 [facility] Comment on above: Order Comment: Speci men Type: BLOOD SPECIMENOrdering Facility: [facility] Address: [address] [place] [address] Performed By: #### 2 4321-2, 14409-0, , HSTROP ####[facility] LABORATORYCLIA [id number] [place] [id number] [place] CO2 [Moles/Vol] 29 mmol/L Normal 21-32 [facility] Comment on above: Order Comment: Speci men Type: BLOOD SPECIMENOrdering Facility: [facility] Address: [address] [place] [address] Performed By: #### 2 4321-2, 62530-8, , HSTROP ####[facility] LABORATORYCLIA [id number] [place] [id number] [place] Creatinine [Mass/Vol] 0.78 mg/dL Normal 0.51-0.95 [facility] Comment on above: Order Comment: Speci men Type: BLOOD SPECIMENOrdering Facility: [facility] Address: [address] [place], [place] [id number] Result Comment: Lillian ents receiving either N-Acetylcysteine (NAC) or Metamizole prior to venipuncture, may have falsely depressed results. Performed By: #### 2 4321-2, 41205-5, , HSTROP ####[facility] LABORATORYCLIA [id number] [place] [id number] [place] Creatinine and Glomerular filtration rate.predicted panel (S/P/Bld) 82 mL/min/1.73m??? Normal >=60 [facility] Comment on above: Order Comment: Pedro Pablo valdes Type: BLOOD SPECIMENOrdering Facility: [facility] Address: [address] [id number] Result Comment: Jada mated Glomerular Filtration Rate (eGFR) is calculated using the 2020 CKD-EPI creatinine equation. This equation utilizes serum creatinine, sex, and age as parameters. The creatinine assay has traceable calibration to isotope dilution-mass spectrometry. Refer to KDIGO guidelines for clinical interpretation. In patients with unstable renal function, e.g. those with acute kidney injury, the eGFR may not accurately reflect actual GFR. Performed By: #### 2 4321-2, 05915-6, , HSTROP ####[facility] LABORATORYCLIA [id number] [place] [address] [place] Glucose [Mass/Vol] 84 mg/dL Normal 70-100 [facility] Comment on above: Order Comment: Pedro Pablo valdes Type: BLOOD SPECIMENOrdering Facility: [facility] Address: [address] [place] [address] Result Comment: The [place] Diabetes Association (ADA) provides guidance for cutoff values for fasting glucose and random glucose. The ADA defines fasting as no caloric intake for at least 8 hours. Fasting plasma glucose results between 100 to 125 mg/dL indicate increased risk for diabetes (prediabetes). Fasting plasma glucose results greater than or equal to 126 mg/dL meet the criteria for diagnosis of diabetes. In the absence of unequivocal hyperglycemia, results should be confirmed by repeat testing. In a patient with classic symptoms of hyperglycemia or hyperglycemic crisis, random plasma glucose results greater than or equal to 200 mg/dL meet the criteria for diagnosis of diabetes. Reference: Standards of Medical Care in Diabetes 2016, [place] [employer] Association. Diabetes Care. 2016.39(Suppl 1). Results may be falsely elevated after the administration of Sulfapyridine. Results may be falsely depressed after the administration of Sulfasalazine. Performed By: #### 2 4321-2, 61714-1, , HSTROP ####[facility] LABORATORYCLIA [id number] [place] [id number] [place] Potassium [Moles/Vol] 4.0 mmol/L Normal 3.5-5.1 [facility] Comment on above: Order Comment: Pedro Pablo valdes Type: BLOOD SPECIMENOrdering Facility: [facility] Address: [address] [place] [address] Performed By: #### 2 4321-2, 76886-5, 83745-7, HSTROP ####[facility] LABORATORYCLIA [id number] [place] [address] [place] Sodium [Moles/Vol] 144 mmol/L Normal 136-145 [facility] Comment on above: Order Comment: Ektai men Type: BLOOD SPECIMENOrdering Facility: [facility] Address: [address] [place] [address] Performed By: #### 2 4321-2, 02299-8, , HSTROP ####[facility] LABORATORYCLIA [id number] [address] [place] Urea nitrogen [Mass/Vol] 24 mg/dL Normal 7-26 [facility] Comment on above: Order Comment: Pedro Pablo valdes Type: BLOOD SPECIMENOrdering Facility: [facility] Address: [address] [place] [address] Performed By: #### 2 4321-2, 25430-6, , HSTROP ####[facility] LABORATORYCLIA [id number] [place] [id number] [place] CNDSon 01-22-2025 CNDS HNO ID: [id number] Author: FAYE PAYTON MD Service: Hospital Medicine Author Type: Nurse Practitioner Type: Discharge Summary Filed: 01/23/2025 10:56 Note Text: Attestation signed by Faye Payton MD at 01/23/2025 10:56 AM Patient seen and examined. Admitted with chest pain. Stress test negative. Seen by cardiology. No further workup needed. Discharged home in a stable condition. Follow with the primary care physician. Carotid ultrasound as an outpatient per cardiology recommendation. Patient ambulating without difficulty no chest pain or shortness of breath. Event monitor upon discharge to rule out arrhythmia. P DISCHARGE SUMMARY PATIENT NAME: Marci Galan ADMISSION DATE: 01/21/2025 DISCHARGE DATE: 01/22/2025 Attending Physician: Faye Payton MD Code Status: Not on file Highest Readmission Risk Score: 10 The 30 day readmissions risk score is derived from an internally validated risk model which evaluates patient level characteristics, utilization history, medication orders and lab results up until the day of discharge. Patients with a score of 39 or above are considered highest risk for readmission. Specific patient level drivers will be listed at the bottom of the summary. Reason for Hospitalization: Chest Pain Marci Galan is a 69 year old female with PMH HTN, asthma who presents with complaint of Chest pain earlier today had smoothie then felt indigestion but then pain radiated to left shoulder into back nausea one episode emesis no history of cardiac disease but does take lisinopril for high blood pressure, abnormal stress test decades ago but cath since then was 'normal' sinus zee on EKG, patient denies ever being told of a slow heart rate, felt she was generally quite healthy trying to eat well and staying active mainly by watching her 2 year old grandchild, did have one event of covid since her last cardiac testing which did not need hospitalized with just a few days of fever, cough, not much taste change, not hypoxic. Her asthma is from an inhalant event when she was younger that scarred her lungs she says. Echocardiogram showed normal LV and RV size and function, LVEF 60%, moderate TR. Stress test was normal. Cardiology was consulted and recommended stopping hydrochlorothiazide. Potassium was replaced. She was cleared for discharge. Cardiology deferred need for carotid US. She was discharged with Zio monitor. Principal Problem: Chest pain, moderate coronary artery risk (POA: Yes) Active Problems: HTN (hypertension) (POA: Yes) Asthma with chronic obstructive pulmonary disease (COPD) (HCC) (POA: Yes) Acute hypokalemia (POA: Yes) Sinus bradycardia (POA: Yes) Resolved Problems: * No resolved hospital problems. * Operations During Hospitalization: None Procedures During Hospitalization: Echocardiogram and EKG Hospital Course: Principal Problem: Chest pain, moderate coronary artery risk (POA: Yes) Assessment AND Plan: -Admitted on telemetry -Cardiology consulted, appreciate recs. Recommended stopping hydrochlorothiazide. Zio monitor on discharge. Outpatient follow up. Initially recommended Carotid US, but elected not necessary this admission. -Echocardiogram showed normal LV and RV size and function, LVEF 60%, moderate TR -Stress test normal -Troponin 17<13<4 Active Problems: HTN (hypertension) (POA: Yes) Assessment AND Plan: -Stop home hydrochlorothiazide per Cardiology -Continue home lisinopril 20mg daily -BP 98/60 on last check Asthma with chronic obstructive pulmonary disease (COPD) (HCC) (POA: Yes) Assessment AND Plan: -Continue home meds Acute hypokalemia (POA: Yes) Assessment AND Plan: -Resolved. K 4.0 s/p replacement Sinus bradycardia (POA: Yes) Assessment AND Plan: -Zio on discharge -Plan as above Resolved Problems: * No resolved hospital problems. * Consulting Teams During Hospitalization: Cardiology: Treatment Team: Attending Provider: Faye Payton MD Attending: MANSI CARLIN APP2 Patient Condition @ Discharge: Stable Discharge Disposition: Home with Self Care Modification to Baseline: Mentation: AAOx3 Oxygen: No Device (Cardiac): No Fistula: No Lines: No Tubes/Ostomy: n/a Skin/Wounds: No Urinary: No [place] Mobility: Independent Diet: Regular Consistency: Normal Discharge Checklist: Has Die Cutter Operator been notified of pending discharge today: Yes Medications reconciled: Yes Follow-up appointment orders placed: Yes Does the patient have a PICC line or central line: No Discharge medications reviewed: Yes Meds to Beds used: No Discharge Physical Exam: VITAL SIGNS: BP 98/60 Pulse (!) 55 Temp 36.3 ?C (97.4 ?F) (Oral) Resp 16 Ht 167.6 cm (5' 6) Wt 71.7 kg (158 lb 1 (more content not included)... Normal [facility] CONSULTon 01-22-2025 CONSULT HNO ID: [id number] Author: LUCILA CHAVEZ MD Service: Cardiovascular Medicine Author Type: Physician Type: Consults Filed: 01/22/2025 11:09 Note Text: CARDIOLOGY CONSULT STAFF LOAN AUDITOR: Dr. Chavez Requesting Provider: Meggan Hunt Opinion/advice regarding: sinus bradycardia, chest pain pending stress test Staff Cardiology Note Patient seen and examined , chart and available information reviewed, discussed with MAXIME, and agree with note as detailed below. I have performed all medical decision making 69-year-old admitted with chest pain bradycardia in the setting of hypertension taking lisinopril hydrochlorothiazide Chest pain occurred after emesis, is located left sternal definitely pleuritic and reproducible with palpation. EKG no dynamic changes did have some septal nonspecific T waves troponins have been negative. The echo showing normal ventricular function and wall motion, stress test walking portion nonspecific ST-T wave change she was able to walk 7 minutes, without chest pain. Nuclear scans pending anticipate them being normal, chest pain is clearly noncardiac Syncope presyncope, says occasionally when she gets up she gets lightheaded, and after activity she will get lightheaded as well. Blood pressure response on treadmill was abnormal peak blood pressure was only 130, suspect overmedication her hydrochlorothiazide has been stopped agree with this Bradycardia, narrow QRS, recently normal heart rate response to exercise no evidence of chronotropic incompetence or conduction abnormality, able to walk 3 miles a day without event. Further workup not indicated Recommendations, correct potassium Discontinue hydrochlorothiazide supplement potassium continue lisinopril 20, no restriction activity, consider angiography only showed high risk nuclear scan to be present.discharge if nuke scan unremarkable Discussed in detail with patient claims understand WT Scott Canas, Hanna CHIEF COMPLAINT: chest pain HPI: This is a 69 year old female with a past medical history of hypertension, basal cell carcinoma, cervical cancer s/p total hysterectomy, and asthma who presented 01/21 with complaint of chest pain. The patient reports eating a strawberry and banana smoothie last night followed by heart burn and nausea. Approximately an hour later she had an episode of non-bilious or bloody emesis at which time she began having 10/10 sharp substernal chest pain radiating to her back and umbilicus so she called EMS. The patient was given fentanyl and nitro en route to the hospital which lowered her pain to 7/10. On arrival to the ED, she received her third nitroglycerin at which time the pain resolved. She denies other associated symptoms at the time of her chest pain including shortness of breath, diaphoresis, palpitations, or lightheadedness. The patient does endorse some general fatigue in the last couple of months as well as worsening shortness of breath with activity. She also reports having intermittent lightheadedness for several months now with 2 episodes of syncope in the last year. She denies any orthopnea, PND, edema, or calf claudication. The patient endorses her medical history as above and denies history of ND, CVA, VTE, diabetes, arrhythmias, heart failure, other cancers, autoimmune disease, or thyroid disease. She denies smoking or drug use ever and drinks alcohol 1-2 times per year. The patient has a mostly vegetarian diet and reports walking 3 miles daily for exercise. She does endorse some family history of heart disease with her father having a CABG age 65, paternal grandmother with ND age 60, and brother with an ND age 65. PAST MEDICAL HISTORY: PAST MEDICAL HISTORY Diagnosis Date Cervical cancer (HCC) Skin cancer PAST SURGICAL HISTORY: PAST SURGICAL HISTORY Procedure Laterality Date BACK SURGERY HX 1999 BLADDER SURGERY HX HIP SURGERY HX Right 2019 POST-CATARACT LASER SURGERY Bilateral 2022 TOTAL ABDOM HYSTERECTOMY FAMILY HISTORY: FAMILY HISTORY Problem Relation Age of Onset Prostate Cancer Father SOCIAL HISTORY: Social History Tobacco Use Smoking status: Never Smokeless tobacco: Never Vaping Use Vaping status: Never Used Substance Use Topics Alcohol use: Never Drug use: Never MEDICATIONS: Prior to Admission Medications: albuterol HFA (PROVENTIL HFA, VENTOLIN HFA) 90 mcg/actuation inhalerINHALE TWO PUFFS EVERY 4 HOURS NEEDED FOR WHEEZEDisp: Rfl: fluticasone-salmetero l (ADVAIR, WIXELA) 250-50 mcg/dose inhalerINHALE 1 PUFF TWICE DAILY FOR 30 DAYSDisp: Rfl: montelukast (SINGULAIR) 10 mg tabletTake 1 tablet by mouth every afternoon.Disp: Rfl: lisinopril-hydroCHLOR Othiazide (ZESTORETIC) 20-12.5 mg per tabletTake 1 tablet by mouth every afternoon.Disp: Rfl: Current Facility-Administered Medications Medic (more content not included)... [facility] ECHOon 01-22-2025 Echocardiography Echocardiography Report: Transthoracic Echo [facility] Date of service: 01/22/2025 8:24:23 AM Ordering physician: MEGGAN HUNT Indication: Chest Pain Technologist: Skyla Velasquez Interpreting physician: Rubina Magana MD PATIENT: Name: MARCI GALAN : 1955 Age: 69 years Gender: F Primary rhythm: sinus. Height: 167.60 cm BSA: 1.73 m Weight: 64.41 kg BMI: 22.9 kg/m Heart rate 54 bpm Blood pressure 114/80 mmHg Color Doppler was utilized to interrogate the cardiac valves assessed and spectral Doppler was utilized to determine the flow velocities and pressure gradients reported in this exam. Myocardial strain analysis was performed in this exam to aid in the assessment of cardiac function. MEASUREMENTS: Value Indexed Normal Max aortic dimension 2.9 cm Ao < 3.8 Left atrial volume 63 ml (biplane A-L) 36 ml/m [place] <= 34 LV ID (diastole) 4.0 cm (2D) 2.31 cm/m LV ID (systole) 2.8 cm (2D) 1.62 cm/m IVS, leaflet tips 0.8 cm (2D) Posterior wall thickness 0.9 cm (2D) Left ventricular mass 101 g (2D) 59 g/m Global peak long strain -21.4 % LVOT stroke volume 93 ml 54 ml/m Ejection Fraction 60 % (visual est.) EF > 54 FINDINGS: LEFT VENTRICLE The left ventricle is normal in size. Left ventricular systolic function is normal. Global LV myocardial strain is normal. Normal left ventricular diastolic function. Mitral annular lateral E/e': 4.5. Mitral annular septal E/e': 7.2. Wall Motion: All scored segments are normal. RIGHT VENTRICLE The right ventricle is normal in size. Right ventricular systolic function is normal. RV systolic tissue Doppler velocity is 13.4 cm/s. Tricuspid annular displacement is 3.2 cm. Estimated right ventricular systolic pressure is 28 mmHg consistent with mild pulmonary hypertension. Estimated right atrial pressure is 3 mmHg based on IVC assessment. LEFT ATRIUM The left atrial cavity is normal in size. RIGHT ATRIUM The right atrial cavity is mildly dilated. Inferior Vena Cava: The inferior vena cava appears normal measuring 1.5 cm. The vessel decreases greater than 50 percent with inspiration. MITRAL VALVE There is no mitral stenosis. There is mild (1+) mitral valve regurgitation. There is mild thickening. The peak mitral valve gradient is 2 mmHg. The mean mitral valve gradient is 1 mmHg. The pressure half time is 78 msec. The peak mitral E/A ratio is 1.30. The mitral flow deceleration time is 268 msec. TRICUSPID VALVE There is no tricuspid stenosis. There is moderate (2+) tricuspid valve regurgitation. There is mild thickening. AORTIC VALVE There is no aortic valve stenosis. There is mild (1+ - 2+) aortic valve regurgitation. Tricuspid aortic valve. There is mild thickening. The peak gradient is 5 mmHg (peak velocity = 113.0 cm/s). The mean gradient is 3 mmHg. The LVOT mean velocity is 66.5 cm/s. The LVOT diameter is 2.2 cm. The aortic VTI is 28.2 cm. The mean velocity in the aortic valve is 75.0 cm/s. The dimensionless valve index is 0.87. AV area is 3.30 cm (1.91 cm /m ) by continuity, VTI. The LVOT stroke volume index is 54 ml/m . PULMONIC VALVE There is no pulmonic stenosis. There is mild (1+) pulmonic valve regurgitation. The peak gradient is 2 mmHg. AORTA The visualized aorta is normal in size. Measurements - Aortic valve annulus 2.2 cm. Sinus: 2.9 cm. Sinotubular junction 2.6 cm. INTERATRIAL SEPTUM There is no evidence of intracardiac shunting as detected by Doppler. PERICARDIUM There is no pericardial effusion. CONCLUSIONS: - Exam indication: Chest Pain - The left ventricle is normal in size. Left ventricular systolic function is normal. EF = 60 5% (visual est.) Normal left ventricular diastolic function. No RWMA - The right ventricle is normal in size. Right ventricular systolic function is normal. - The right atrial cavity is mildly dilated. - There is moderate (2+) tricuspid valve regurgitation. 1-2+AI with PHT 580 msec 1+MR/PI - The patient has not had a prior CC echocardiographic exam for comparison. * * * Final * * * [facility] [employer] Image : [id number] amicsSISUID Normal [facility] HIGH SENSITIVITY TROPONIN Io n 01-22-2025 Tropinin I.cardiac panel High sensitivity method 17.4 pg/mL Normal 0.0-34.0 [facility] Comment on above: Order Comment: Speci men Type: BLOOD SPECIMENOrdering Facility: [facility] Address: [address] [place] [address] Performed By: #### 2 4321-2, 85953-6, 03470-8, HSTROP ####[facility] LABORATORYCLIA [id number] [address] [place] Hematocrit Auto (Bld) [Volum e fraction]on 01-22-2025 Hematocrit (Bld) [Volume fraction] 31.7 % Low 36.0-46.0 [facility] Comment on above: Order Comment: Pedro Pablo valdes Type: BLOOD SPECIMENOrdering Facility: [facility] Address: [address] [place] [address] Performed By: #### 4 544-3, 718-7 ####[facility] LABORATORYCLIA [id number] [place] [id number] [place] Hgb Bld-mCncon 01-22-2025 Hemoglobin (Bld) [Mass/Vol] 10.9 g/dL Low 11.5-15. 5 [facility] Comment on above: Order Comment: Speci men Type: BLOOD SPECIMENOrdering Facility: [facility] Address: [address] [place] [address] Performed By: #### 4 544-3, 718-7 ####[facility] LABORATORYCLIA [id number] [place] [id number] [place] Lipid 1996 panelon Cholesterol [Mass/Vol] 138 mg/dL Normal 0-199 [facility] Comment on above: Order Comment: Speci men Type: BLOOD SPECIMENOrdering Facility: [facility] Address: [address] [place] [address] Result Comment: <200 mg/dL, Desirable 200-239 mg/dL, Borderline high >239 mg/dL, High Performed By: #### 2 4321-2, 58221-2, , HSTROP ####[facility] LABORATORYCLIA [id number] [place] [id number] [place] Cholesterol in HDL [Mass/Vol] 44 mg/dL Normal >40 [facility] Comment on above: Order Comment: Speci men Type: BLOOD SPECIMENOrdering Facility: [facility] Address: [address] [place] [address] Result Comment: 40-5 9 mg/dL, Acceptable >59 mg/dL, High: Negative risk factor for coronary heart disease <40 mg/dL, Low: Positive risk factor for coronary heart disease Performed By: #### 2 4321-2, 59602-4, , HSTROP ####[facility] LABORATORYCLIA [id number] [place] [id number] [facility] [place] Cholesterol in LDL [Mass/Vol] 77 mg/dL Normal 0-129 [facility] Comment on above: Order Comment: Speci men Type: BLOOD SPECIMENOrdering Facility: [facility] Address: [address] [place] [address] Result Comment: <100 mg/dL, Optimal 100-129 mg/dL, Near optimal/above optimal 130-159 mg/dL, Borderline high 160-189 mg/dL, High >189 mg/dL, Very high Secondary prevention optimal LDL Cholesterol levels are recommended to be <70 mg/dL LDL cholesterol is calculated using the Lee-NIH equation. Performed By: #### 2 4321-2, 98271-4, , HSTROP ####[facility] LABORATORYCLIA [id number] [place] [id number] [place] Cholesterol in LDL/Cholesterol in HDL [Mass ratio] 1.75 {ratio} Normal <2.54 [facility] Comment on above: Order Comment: Speci men Type: BLOOD SPECIMENOrdering Facility: [facility] Address: [address] [place] [address] Result Comment: Refe rence: 1. National Cholesterol Education Program ATP III Guideline At-A-Glance Quick Desk Reference: National Heart, Lung, and Blood Winifred. National Institutes of Health. 2001: NIH Publication No. 01-3305. 2. An International Atherosclerosis Society position paper: global recommendations for the management of dyslipidemia: executive summary, Atherosclerosis. 2014: 232(2):410-413. Performed By: #### 2 4321-2, 14479-1, , HSTROP ####[facility] LABORATORYCLIA [id number] [place] [id number] [place] Cholesterol in VLDL [Mass/Vol] 14 mg/dL Normal <30 [facility] Comment on above: Order Comment: Speci men Type: BLOOD SPECIMENOrdering Facility: [facility] Address: [address] [address] Performed By: #### 2 4321-2, 49477-3, , HSTROP ####[facility] LABORATORYCLIA [id number] [place] [id number] [place] Cholesterol non HDL [Mass/Vol] 94 mg/dL Normal <130 [facility] Comment on above: Order Comment: Speci men Type: BLOOD SPECIMENOrdering Facility: [facility] Address: [address] [place] [address] Result Comment: <130 mg/dL, Optimal 130-159 mg/dL, Near optimal/above optimal 160-189 mg/dL, Borderline high 190-219 mg/dL, High >219 mg/dL, Very high Secondary prevention optimal non HDL Cholesterol levels are recommended to be <100 mg/dL Performed By: #### 2 4321-2, 18245-1, , HSTROP ####[facility] LABORATORYCLIA [id number] [address] STATES OF [facility] Cholesterol.total/Cholester ol in HDL [Mass ratio] 3.14 {ratio} Normal <5.10 [facility] Comment on above: Order Comment: Pedro Pablo valdes Type: BLOOD SPECIMENOrdering Facility: [facility] Address: [address] [place] [address] Performed By: #### 2 4321-2, 79475-2, , HSTROP ####[facility] LABORATORYCLIA [id number] [place] [address] [place] FASTING TIME Unknown Normal [facility] Comment on above: Order Comment: Pedro Pablo valdes Type: BLOOD SPECIMENOrdering Facility: [facility] Address: [address] [place] [address] Performed By: #### 2 4321-2, 82658-8, , HSTROP ####[facility] LABORATORYCLIA [id number] [place] [address] [place] Triglyceride [Mass/Vol] 90 mg/dL Normal 30-[address] [facility] Comment on above: Order Comment: Pedro Pablo men Type: BLOOD SPECIMENOrdering Facility: [facility] Address: [address] [place] [address] Result Comment: <150 mg/dL, Normal 150-199 mg/dL, Borderline high 200-499 mg/dL, High >499 mg/dL, Very high Patients receiving either N-Acetylcysteine (NAC) or Metamizole prior to venipuncture, may have falsely depressed results. Performed By: #### 2 4321-2, 70100-4, , HSTROP ####[facility] LABORATORYCLIA [id number] [place] [address] [place] Magnesium SerPl-mCncon 01-22 Magnesium [Mass/Vol] 2.4 mg/dL Normal 1.6-2.6 [facility] Comment on above: Order Comment: Speci men Type: BLOOD SPECIMENOrdering Facility: [facility] Address: [address] [place] [address] Performed By: #### 2 4321-2, 34254-6, 42699-7, HSTROP ####[facility] LABORATORYCLIA [id number] [place] [id number] [place] NM CARDIAC PERF STRESS/EXERC ISEon 01-22-2025 NM CARDIAC PERF STRESS/EXERCISE * * *Final Report* * * DATE OF EXAM: Jan 22 2025 11:53AM RHN 0004 - NM CARDIAC PERF STRESS/EXERCISE / PROCEDURE REASON: Chest pain/anginal equiv, intermediate CAD risk, treadmill candidate * * * * Physician Interpretation * * * * Stress Bun Machine Operator Report: [facility] Date of service: 01/22/2025 9:39:18 AM Supervising physician: Rubina Magana MD PATIENT: Name: MARCI GALAN Age: 69 years Gender: F The supervising physician was in the department and immediately available. * * * Final * * * -------- PATIENT: Name: MARCI GALAN Age: 69 years Gender: F CONCLUSIONS: 1. SPECT Perfusion Study: Normal. 2. There is no scintigraphic evidence for inducible ischemia. 3. No evidence of scarred myocardium. 4. Left ventricle is normal in size. The left ventricle systolic function is normal. 5. This is a low risk scan. Gated Stress FBP Gated Rest FBP LVEF % 78 80 Prior Study Comparison No prior nuclear cardiology exam available for comparison. Nuclear Med Report:1-Day Gated SPECT Myocardial Perfusion with Exercise Stress: Myocardial perfusion imaging was performed at rest 30 to 60 minutes following the IV injection of the radiotracer. One minute prior to peak exercise, the patient was injected IV with the radiotracer. Gated post stress tomographic imaging was performed 10 to 20 minutes later. See administered radiotracer and doses below. [facility] Date of service: 01/22/2025 9:39:18 AM Ordering Physician: MEGGAN HUNT. Requesting Physician: Indication: chest pain Interpreting physician: Rubina Magana MD Previous Cardiovascular Interventions: Diagnostic cath Height: 165.10 cm BSA: 1.72 m? Weight: 64.41 kg BMI: 23.6 kg/m? Imaging Protocol Limitation Reason G.I. uptake. Exam Type: Rest Stress Radiopharm: Tc-99m Tetrofosmin Tc-99m Tetrofosmin Dosage(mCi): 13.5 36.0 Atten Correction: not performed not performed Stress Agent: Treadmill Resting Blood Press: 112/76 mmHg Image Quality The overall study imaging quality was deemed to be good. The following technical issues were noted: G.I. uptake. FINDINGS: Left Ventricle Wall Motion: Stress FBP - All segments are normal. Rest FBP - Gated Stress FBP - Gated Rest FBP - Reversibility - Stress FBP Stress FBP Gated Stress FBP Gated Rest FBP LVEF: 78 % 80 % ED Volume: 64 ml 61 ml ES Volume: 14 ml 12 ml TID: 1.06 Perfusion Findings Stress FBP - Summed Score=0 All segments demonstrate normal perfusion. Rest FBP - Summed Score=0 All segments demonstrate normal perfusion. Stress FBP Rest FBP Summed Score=0 Summed Score=0 LEFT VENTRICLE The left ventricle is normal in size. Left ventricular systolic function is normal. Right Ventricle The right ventricle is unseen or not interrogated. Stress Test Findings: There is no scintigraphic evidence for inducible ischemia. There is no evidence of scarring. The left ventricular cavity size is unchanged with stress. * * * Final * * * -------- Stress ECG Report: [facility] Date of service: 01/22/2025 9:39:18 AM Ordering physician: MEGGAN HUNT customer success specialist: Chelsea Siegel Interpreting physician: Rubina Magana MD Patient name: MARCI GALAN Age: 69 years Gender: F Height: 165.10 cm BSA: 1.72 m? Weight: 64.41 kg BMI: 23.6 kg/m? Indication: Angina equivalent (other forms of angina) Stress ECG Conclusion: Conclusion: Normal Comments: This is a EKG portion of exercise induced myocardial perfusion imaging stress test for the evaluation of chest pain. Total exercise time 7 minutes 87% of maximum predicted heart rate achieved Maximum workload 8.5 METS Reason for termination fatigue Patient felt some lightheadedness but no chest pain. Baseline blood pressure 112/76 and peak blood pressure 138/80 Baseline EKG sinus rhythm, nonspecific T wave abnormality. During the Satish protocol patient did not have any acute ST changes that suggestive of/diagnostic of myocardial ischemia. No arrhythmias noted. No chest pain noted. Please correlate with the nuclear images. Stress ECG Summary: The patient's resting heart rate was 67 bpm and blood pressure was 112/76 mmHg. The patient exercised according to the Satish protocol. The estimated end-exercise MET level achieved using the FRIEND equation * * * was 6.8, which is in the top 10th percentile for age and sex. The estimated end-exercise MET level achieved using the previous ACSM equation was 10.2. The test was terminated due to general fatigue and the total exercis (more content not included)... Normal [facility] ALLIED HEALTHon 01-21-2025 ALLIED HEALTH HNO ID: [id number] Author: VALERIA PIKE RT(R) Service: ? Author Type: Brand Attendant Type: Allied Health Filed: 01/21/2025 22:15 Note Text: Summary: xray Radiology Service Progress Note PATIENT NAME: Marci Galan DATE OF SERVICE: January 21, 2025 TIME: 10:15 PM PATIENT IDENTITY VERIFICATION COMPLETED USING TWO (2) IDENTIFIERS: Name and Date of confirmed by patient verbally and Name and Date of confirmed by identification band. FALL SCREENING: Has the patient had 2 falls in the last year or 1 fall with injury or currently using an Ambulatory Assistive Device (Walker, Cane, Wheelchair, Crutches, etc.)? Emergency Room Patient: Screened in ED PATIENT GENDER DATA: Assigned female at . status: : No status: NO. PATIENT RELEVANT IMPLANT DATA REVIEWED: Not Applicable PATIENT PRESENTS WITH AN IMPLANTABLE OR ATTACHED BANANA HANDLER: No RADIOLOGY DEPARTMENT: General X-ray: Exam(s) Completed: Chest X-Ray PERIPHERAL IV DATA: Not applicable SIGNED BY: Valeria Pike RT(R) January 21, 2025 10:15 PM Normal [facility] CBC W Auto Differential pane l (Bld)on 01-21-2025 Basophils (Bld) [#/Vol] 0.05 10*3/uL Normal <0.11 [facility] Comment on above: Order Comment: Pedro Pablo valdes Type: BLOOD SPECIMEN [facility] Address: [address] [place] [address] Performed By: #### 5 7021-8 #### [facility] CLIA [id number] [address] [place] [address] [place] #### 18388-5 #### [facility] CLIA [id number] [address] [place] [address] [place] [address] [place] Basophils/100 WBC (Bld) 0.6 % Normal [facility] Comment on above: Order Comment: Pedro Pablo valdes Type: BLOOD SPECIMEN [facility]: [facility] Address: [address] [place] [address] Performed By: #### 5 7021-8 #### [facility] CLIA [id number] [address] [place] [address] [place] #### 75420-8 #### [facility] CLIA [id number] [address] [place] [address] [place] Differential cell count method Nom (Bld) Auto Normal [facility] Comment on above: Order Comment: Speci men Type: BLOOD SPECIMEN [facility] Address: [address] [place] [address] Performed By: #### 5 7021-8 #### [facility] CLIA [id number] [address] [place] [address] [place] #### 52484-1 #### [facility] CLIA [id number] [address] [place] [address] [place] Eosinophils (Bld) [#/Vol] 0.13 10*3/uL Normal <0.46 [facility] Comment on above: Order Comment: Speci men Type: BLOOD SPECIMEN [facility] Address: [address] [place] [address] Performed By: #### 5 7021-8 #### [facility] CLIA [id number] [address] [place] [address] [place] #### 24392-0 #### [facility] CLIA [id number] [address] [place] [address] [place] Eosinophils/100 WBC (Bld) 1.6 % Normal [facility] Comment on above: Order Comment: Speci men Type: BLOOD SPECIMEN [facility] Address: [address] [place] [address] Performed By: #### 5 7021-8 #### [facility] CLIA [id number] [address] [place] [address] [place] #### 94338-0 #### [facility] CLIA [id number] [address] [place] [address] [place] Erythrocyte distribution width (RBC) [Ratio] 11.9 % Normal 11.5-15.0 [facility] Comment on above: Order Comment: Speci men Type: BLOOD SPECIMEN [facility] Address: [address] [place] [address] Performed By: #### 5 7021-8 #### [facility] CLIA [id number] [address] [place] [address] [place] #### 40534-5 #### [facility] CLIA [id number] [address] [place] [address] [place] Hematocrit (Bld) [Volume fraction] 32.2 % Low 36.0-46.0 [facility] Comment on above: Order Comment: Speci men Type: BLOOD SPECIMEN [facility]: [facility] Address: [address] [place] [address] Performed By: #### 5 7021-8 #### [facility] CLIA [id number] [address] [place] [address] [place] #### 38059-6 #### [facility] CLIA [id number] [address] [place] [address] [place] Hemoglobin (Bld) [Mass/Vol] 11.2 g/dL Low 11.5-15. 5 [facility] Comment on above: Order Comment: Speci men Type: BLOOD SPECIMEN [facility] Address: [address] [place] [address] Performed By: #### 5 7021-8 #### [facility] CLIA [id number] [address] [place] [address] [place] #### 67666-7 #### [facility] CLIA [id number] [address] [place] [address] [place] Immature granulocytes (Bld) [#/Vol] 10*3/uL Normal <0.10 [facility] Comment on above: Order Comment: Speci men Type: BLOOD SPECIMEN [facility]: [facility] Address: [address] [place] [address] Performed By: #### 5 7021-8 #### [facility] CLIA [id number] [address] [place] [address] [place] #### 08403-8 #### [facility] CLIA [id number] [address] [place] [address] [place] Immature granulocytes/100 WBC (Bld) 0.2 % Normal [facility] Comment on above: Order Comment: Speci men Type: BLOOD SPECIMEN [facility]: [facility] Address: [address] [place] [address] Performed By: #### 5 7021-8 #### [facility] CLIA [id number] [address] [place] [address] [place] #### 64994-2 #### [facility] CLIA [id number] [address] [place] [address] [place] Lymphocytes (Bld) [#/Vol] 2.79 10*3/uL Normal 1.00-4.0 0 [facility] Comment on above: Order Comment: Speci men Type: BLOOD SPECIMEN [facility]: [facility] Address: [address] [place] [address] Performed By: #### 5 7021-8 #### [facility] CLIA [id number] [address] [place] [address] [place] #### 80012-7 #### [facility] CLIA [id number] [address] [place] [address] [place] Lymphocytes/100 WBC (Bld) 34.8 % Normal [facility] Comment on above: Order Comment: Speci men Type: BLOOD SPECIMEN [facility]: [facility] Address: [address] [place] [address] Performed By: #### 5 7021-8 #### [facility] CLIA [id number] [address] [place] [address] [place] #### 80765-2 #### [facility] CLIA [id number] [address] [place] [address] [place] MCH (RBC) [Entitic mass] 30.4 pg Normal 26.0-34.0 [facility] Comment on above: Order Comment: Speci men Type: BLOOD SPECIMEN [facility]: [facility] Address: [address] [place] [address] Performed By: #### 5 7021-8 #### [facility] CLIA [id number] [address] [place] [address] [place] #### 57411-4 #### [facility] CLIA [id number] [address] [place] [address] [place] MCHC (RBC) [Mass/Vol] 34.8 g/dL Normal 30.5-36.0 [facility] Comment on above: Order Comment: Speci men Type: BLOOD SPECIMEN [facility]: [facility] Address: [address] [place] [address] Performed By: #### 5 7021-8 #### [facility] CLIA [id number] [address] [place] [address] [place] #### 91336-6 #### [facility] CLIA [id number] [address] [place] [address] [place] MCV (RBC) [Entitic vol] 87.3 fL Normal 80.0-100.[address] [facility] Comment on above: Order Comment: Speci men Type: BLOOD SPECIMEN [facility]: [facility] Address: [address] [place] [address] Performed By: #### 5 7021-8 #### [facility] CLIA [id number] [address] [place] [address] [place] #### 13140-0 #### [facility] CLIA [id number] [address] [place] [address] [place] Monocytes (Bld) [#/Vol] 0.67 10*3/uL Normal <0.87 [facility] Comment on above: Order Comment: Speci men Type: BLOOD SPECIMEN [facility]: [facility] Address: [address] [place] [address] Performed By: #### 5 7021-8 #### [facility] CLIA [id number] [address] [place] [address] [place] #### 68510-6 #### [facility] CLIA [id number] [address] [place] [address] [place] Monocytes/100 WBC (Bld) 8.4 % Normal [facility] Comment on above: Order Comment: Speci men Type: BLOOD SPECIMEN [facility]: [facility] Address: [address] [place] [address] Performed By: #### 5 7021-8 #### [facility] CLIA [id number] [address] [place] [address] [place] #### 96570-8 #### [facility] CLIA [id number] [address] [place] [address] [place] Neutrophils (Bld) [#/Vol] 4.36 10*3/uL Normal 1.45-7.5 0 [facility] Comment on above: Order Comment: Speci men Type: BLOOD SPECIMEN Order[facility]: [facility] Address: [address] [place] [address] Performed By: #### 5 7021-8 #### [facility] CLIA [id number] [address] [place] [address] OF [place] #### 16398-6 #### [facility] CLIA [id number] [address] [place] [address] [place] Neutrophils/100 WBC (Bld) 54.4 % Normal [facility] Comment on above: Order Comment: Speci men Type: BLOOD SPECIMEN Order[facility] Facility: [facility] Address: [address] [place] [address] Performed By: #### 5 7021-8 #### [facility] CLIA [id number] [address] [place] [address] [place] #### 67574-5 #### [facility] CLIA [id number] [address] [place] [address] [place] Nucleated RBC (Bld) [#/Vol] 10*3/uL Normal <0.01 [facility] Comment on above: Order Comment: Speci men Type: BLOOD SPECIMEN Ordering Facility: [facility] Address: [address] [place] [address] Performed By: #### 5 7021-8 #### [facility] CLIA [id number] [address] [place] [address] [place] #### 57333-4 #### [facility] CLIA [id number] [address] [place] [address] [place] Nucleated RBC/100 WBC (Bld) [Ratio] 0.0 /100 WBC Normal [facility] Comment on above: Order Comment: Speci men Type: BLOOD SPECIMEN Ordering Facility: [facility] Address: [address] [place] [address] Performed By: #### 5 7021-8 #### [facility] CLIA [id number] [address] [place] [address] [place] #### 57846-6 #### [facility] CLIA [id number] [address] [place] [address] [place] Platelet mean volume (Bld) [Entitic vol] 10.4 fL Normal 9.0-12.7 [facility] Comment on above: Order Comment: Speci men Type: BLOOD SPECIMEN Ordering Facility: [facility] Address: [address] [place] [address] Performed By: #### 5 7021-8 #### [facility] CLIA [id number] [address] [place] [address] [place] #### 00056-4 #### [facility] CLIA [id number] [address] [place] [address] [place] Platelets (Bld) [#/Vol] 238 10*3/uL Normal 150-400 [facility] Comment on above: Order Comment: Speci men Type: BLOOD SPECIMEN Ordering Facility: [facility] Address: [address] [place] [address] Performed By: #### 5 7021-8 #### [facility] CLIA [id number] [address] [place] [address] [place] #### 78751-5 #### [facility] CLIA [id number] [address] [place] [address] [place] RBC (Bld) [#/Vol] 3.69 10*6/uL Low 3.90-5.20 [facility] Comment on above: Order Comment: Speci men Type: BLOOD SPECIMEN Ordering Facility: [facility] Address: [address] [place] [address] Performed By: #### 5 7021-8 #### [facility] CLIA [id number] [address] [place] [address] [place] #### 49883-7 #### [facility] CLIA [id number] [address] [place] [address] [place] WBC (Bld) [#/Vol] 8.02 10*3/uL Normal 3.70-11.00 [facility] Comment on above: Order Comment: Speci men Type: BLOOD SPECIMEN Ordering Facility: [facility] Address: [address] [place] [address] Performed By: #### 5 7021-8 #### [facility] CLIA [id number] [address] [place] [address] [place] #### 97053-6 #### [facility] CLIA [id number] [address] [place], [place] [address] [address] OF [place] Comprehensive metabolic 2000 panelon 01-21-2025 Albumin [Mass/Vol] 3.7 g/dL Normal 3.2-5.0 [facility] Comment on above: Order Comment: Ektai men Type: BLOOD SPECIMEN Ordering Facility: [facility] Address: [address] [place] [address] Performed By: #### 2 4323-8, 3040-3, 92721-2, 41800-0, [id number] #### [facility] CLIA [id number] [address] [place] [address] [place] ALP [Catalytic activity/Vol] 56 U/L Normal 45-117 [facility] Comment on above: Order Comment: Ektai men Type: BLOOD SPECIMEN Ordering Facility: [facility] Address: [address] [place] [address] Performed By: #### 2 4323-8, 3040-3, 67340-3, 48411-8, [id number] #### [facility] CLIA [id number] [address] [place], [place] [id number] [facility] OF [place] ALT [Catalytic activity/Vol] 13 U/L Normal 13-61 [facility] Comment on above: Order Comment: Speci men Type: BLOOD SPECIMEN Ordering Facility: [facility] Address: [address] [place] [address] Result Comment: Resu lts may be falsely depressed after the administration of Sulfasalazine and/or Sulfapyridine. Performed By: #### 2 4323-8, 3040-3, 42907-4, 48901-3, [id number] #### [facility] CLIA [id number] [address] [place] [address] [place] ADIN Anion gap [Moles/Vol] 11 mmol/L Normal 5-16 [facility] Comment on above: Order Comment: Speci men Type: BLOOD SPECIMEN Ordering Facility: [facility] Address: [address] [place] [address] Performed By: #### 2 4323-8, 3040-3, 56105-5, 54128-9, [id number] #### [facility] CLIA [id number] [address] [place] [address] [place] AST [Catalytic activity/Vol] 22 U/L Normal 8-34 [facility] Comment on above: Order Comment: Speci men Type: BLOOD SPECIMEN Ordering Facility: [facility] Address: [address] [place] [address] Result Comment: Resu lts may be falsely depressed after the administration of Sulfasalazine and/or Sulfapyridine. Performed By: #### 2 4323-8, 3040-3, 06662-5, 59103-8, [id number] #### [facility] CLIA [id number] [address] [place], [place] [address] [place] Bilirubin [Mass/Vol] 0.3 mg/dL Normal 0.2-1.0 [facility] Comment on above: Order Comment: Speci men Type: BLOOD SPECIMEN Ordering Facility: [facility] Address: [address] [place] [address] Performed By: #### 2 4323-8, 3040-3, 51110-3, 63364-2, [id number] #### [facility] CLIA [id number] [address] [place] [address] [place] Calcium [Mass/Vol] 9.6 mg/dL Normal 8.5-10.5 [facility] Comment on above: Order Comment: Speci men Type: BLOOD SPECIMEN Ordering Facility: [facility] Address: [address] [place] [address] Performed By: #### 2 4323-8, 3040-3, 58678-2, 83534-0, [id number] #### [facility] CLIA [id number] [address] [place], [place] [address] [place] Chloride [Moles/Vol] 108 mmol/L High 98-107 [facility] Comment on above: Order Comment: Speci men Type: BLOOD SPECIMEN Ordering Facility: [facility] Address: [address] [place] [address] Performed By: #### 2 4323-8, 3040-3, 12313-1, 18581-4, [id number] #### [facility] CLIA [id number] [address] [place], [place] [address] [place] CO2 [Moles/Vol] 24 mmol/L Normal 21-32 [facility] Comment on above: Order Comment: Speci men Type: BLOOD SPECIMEN Ordering Facility: [facility] Address: [address] [place] [address] Performed By: #### 2 4323-8, 3040-3, 47718-6, 46284-9, [id number] #### [facility] CLIA [id number] [address] [place], [place] [address] [place] Creatinine [Mass/Vol] 0.85 mg/dL Normal 0.51-0.95 [facility] Comment on above: Order Comment: Speci men Type: BLOOD SPECIMEN Ordering Facility: [facility] Address: [address] [place] [address] Result Comment: Lillian ents receiving either N-Acetylcysteine (NAC) or Metamizole prior to venipuncture, may have falsely depressed results. Performed By: #### 2 4323-8, 3040-3, 76902-6, 87239-9, [id number] #### [facility] CLIA [id number] [address] [place], [place] [address] [place] Creatinine and Glomerular filtration rate.predicted panel (S/P/Bld) 74 mL/min/1.73m??? Normal >=60 [facility] Comment on above: Order Comment: Speci men Type: BLOOD SPECIMEN Ordering Facility: [facility] Address: [address] [place], [place] [address] Result Comment: Jada mated Glomerular Filtration Rate (eGFR) is calculated using the 2020 CKD-EPI creatinine equation. This equation utilizes serum creatinine, sex, and age as parameters. The creatinine assay has traceable calibration to isotope dilution-mass spectrometry. Refer to KDIGO guidelines for clinical interpretation. In patients with unstable renal function, e.g. those with acute kidney injury, the eGFR may not accurately reflect actual GFR. Performed By: #### 2 4323-8, 3040-3, 47500-5, 09847-4, [id number] #### [facility] CLIA [id number] [address] [place], [place] [address] [place] Glucose [Mass/Vol] 104 mg/dL High 70-100 [facility] Comment on above: Order Comment: Pedro Pablo keisha Type: BLOOD SPECIMEN Ordering Facility: [facility] Address: [address] [place] [address] Result Comment: The [place] Diabetes Association (ADA) provides guidance for cutoff values for fasting glucose and random glucose. The ADA defines fasting as no caloric intake for at least 8 hours. Fasting plasma glucose results between 100 to 125 mg/dL indicate increased risk for diabetes (prediabetes). Fasting plasma glucose results greater than or equal to 126 mg/dL meet the criteria for diagnosis of diabetes. In the absence of unequivocal hyperglycemia, results should be confirmed by repeat testing. In a patient with classic symptoms of hyperglycemia or hyperglycemic crisis, random plasma glucose results greater than or equal to 200 mg/dL meet the criteria for diagnosis of diabetes. Reference: Standards of Medical Care in Diabetes 2016, [place] Diabetes Association. Diabetes Care. 2016.39(Suppl 1). Results may be falsely elevated after the administration of Sulfapyridine. Results may be falsely depressed after the administration of Sulfasalazine. Performed By: #### 2 4323-8, 3040-3, 62146-8, 00521-2, [id number] #### [facility] CLIA [id number] [address] [place] [address] [place] Potassium [Moles/Vol] 3.0 mmol/L Low 3.5-5.1 [facility] Comment on above: Order Comment: Speci men Type: BLOOD SPECIMEN Ordering Facility: [facility] Address: [address] [place] [address] Performed By: #### 2 4323-8, 3040-3, 38249-5, 42021-6, [id number] #### [facility] CLIA [id number] [address] [place], [place] [address] [place] Protein [Mass/Vol] 6.5 g/dL Normal 6.0-8.5 [facility] Comment on above: Order Comment: Speci men Type: BLOOD SPECIMEN Ordering Facility: [facility] Address: [facility] [place] [address] Performed By: #### 2 4323-8, 3040-3, 00620-3, 49920-8, [id number] #### [facility] CLIA [id number] [address] [place], [place] [address] [place] Sodium [Moles/Vol] 143 mmol/L Normal 136-145 [facility] Comment on above: Order Comment: Speci men Type: BLOOD SPECIMEN Ordering Facility: [facility] Address: [facility] [place] [address] Performed By: #### 2 4323-8, 3040-3, 59236-7, 93976-7, [id number] #### [facility] CLIA [id number] [address] [place], [place] [address] [place] Urea nitrogen [Mass/Vol] 26 mg/dL Normal 7-26 [facility] Comment on above: Order Comment: Speci men Type: BLOOD SPECIMEN Ordering Facility: [facility] Address: [address] [place] [address] [place] [address] Performed By: #### 2 4323-8, 3040-3, 38543-0, 48207-4, [id number] #### [facility] CLIA [id number] [address] [place] [address] [place] ECG COMPLETEon 01-21-2025 ECG COMPLETE Ventricular Rate : 5 1 BPM Atrial Rate : 51 BPM P-R Interval : 150 ms QRS Duration : 90 ms Q-T Interval : 458 ms QTC Calculation(Bazett) : 422 ms Calculated P Staples : 42 degrees Calculated R Staples : 70 degrees Calculated T Staples : 52 degrees Sinus bradycardia Otherwise normal ECG When compared with ECG of 09-Jul-2021 17:47, No significant change was found Confirmed by PARAMJIT MORENO MD ([id number]) on 01/22/2025 9:14:47 PM NAME : MARCI GALAN PID : [id number] : 1955 Gender : Female Race : ORD : [id number] Procedure Date : Jan 21 2025 22:08:58 Edit Date : Jan 22 2025 21:14:52 Diagnosis: Sinus bradycardia Otherwise normal ECG When compared with ECG of 09-Jul-2021 17:47, No significant change was found Confirmed by PARAMJIT MORENO MD ([id number]) on 01/22/2025 9:14:47 PM Test Reason : HCS Location : 0 : ED [id number] Overread By : PARAMJIT MORENO MD Edited By : PARAMJIT MORENO MD Referred By : , Acquired by : [id number], [facility] ED NOTEon 01-21-2025 ED NOTE HNO ID: [id number] Author: MILLICENT MURRAY Medic Service: ? Author Type: Flocculator Operator and Brand Attendant Type: ED Notes Filed: 01/21/2025 21:30 Note Text: Bed: 32-ED Expected date: Expected time: Means of arrival: Comments: ems [facility] ED PROV NOTEon 01-21-2025 ED PROV NOTE HNO ID: [id number] Author: KRYSTLE SERRA MD Service: ? Author Type: Physician Type: ED Provider Notes Filed: 01/21/2025 23:29 Note Text: ED Provider Note Patient Name: Marci Galan : 1955 SERVICE DATE: 01/21/25 History Patient presents with: Chest Pain: Pt c/o heartburn that started around 1830, took tums without relief and started vomiting and having left sided chest pain. Pt also complains of back and left sided shoulder pain. HPI Marci Galan is a 69 year old female with a pertinent PMHx of hypertension. Marci Galan presents with a chief complaint of chest pain. She states that this evening she drank a smoothie, which she has had numerous times before. She then started to feel that she initially described as heartburn. She states that she then developed chest pain that radiated to her left shoulder and to her back. She did have some vomiting with this as well. She notes that she has recently been having intermittent lightheadedness. She denies any shortness of breath. She called EMS and was given aspirin, nitro, and fentanyl. She states that the nitro did help her chest pain. She notes that about 20 years ago she had an abnormal stress test, however had a cath following that that was clean. She has not had any sort of cardiac workup for a while. She denies any recent fevers, cough. PAST MEDICAL HISTORY Diagnosis Date Cervical cancer (HCC) Skin cancer PAST SURGICAL HISTORY Procedure Laterality Date BACK SURGERY HX 2000 BLADDER SURGERY HX HIP SURGERY HX Right 2019 POST-CATARACT LASER SURGERY Bilateral 2022 TOTAL ABDOM HYSTERECTOMY FAMILY HISTORY Problem Relation Age of Onset Prostate Cancer Father Social History Tobacco Use Smoking status: Never Smokeless tobacco: Never Vaping Use Vaping status: Never Used Substance and Sexual Activity Alcohol use: Never Drug use: Never Sexual activity: Not on file ALLERGIES Allergen Reactions Sulfa (Sulfonamide * Rash Review of Systems Physical Exam Vitals [01/21/25 2131] BP Pulse Temp Temp src Resp SpO2 Weight Height 152/72 (!) 53 36.6 ?C (97.8 ?F) Oral 16 100 % 64.4 kg (142 lb) 1.676 m (5' 6) Physical Exam Vitals and nursing note reviewed. Constitutional: Appearance: Normal appearance. HENT: Head: Normocephalic and atraumatic. Eyes: Extraocular Movements: Extraocular movements intact. Cardiovascular: Rate and Rhythm: Normal rate. Pulmonary: Effort: Pulmonary effort is normal. Breath sounds: Normal breath sounds. Abdominal: Palpations: Abdomen is soft. Musculoskeletal: General: Normal range of motion. Skin: General: Skin is warm and dry. Neurological: Mental Status: She is alert. Mental status is at baseline. Diagnostic Testing ED Labs Ordered and Reviewed - No data to display Procedures ED Course / Clinical Impression Clinical Impressions as of 01/21/25 2327 Chest pain, unspecified type MDM / Disposition / Plan Marci Galan is a 69 year old female who presented to the ED complaining of chest pain. Their chart was reviewed. The nursing note was reviewed. Vital signs were reviewed and showed bradycardia, but were otherwise stable. On physical exam, she had clear breath sounds. ECG showed sinus bradycardia without ischemic changes. She was given sublingual nitro with resolution of her chest pain. She had been given aspirin by EMS. Labs revealed an initially normal troponin. Her potassium and magnesium were low and these were supplemented. Chest x-ray showed no acute process. On re-evaluation, her chest pain was resolved. Given her concerning story, resolution with nitro, and heart score of 5, the plan for admission for stress testing and further workup was discussed with the patient and her family. They were agreeable with this plan. I spoke with Dr. Hunt who accepted the admission. She was admitted instable condition. Differential Diagnoses - Cardiac chest pain is more likely for the following reason(s): suggested by HANDP - Pneumothorax Less likely because: bilateral breath sounds, CXR without PTX and HANDP not suggestive - Pneumonia Less likely because: lungs clear to auscultation, CXR without infiltrate and no fever Additional complaint based differentials considered: pneumonia, pneumothorax Management Management of the patient was discussed with:admitting team Discussion with admitting team included: Dr. Hunt Radiology Reports XR CHEST 1V FRONTAL PORT Final Result IMPRESSION: No acute radiographic abnormality. Forest Ranger Technician: ANDREAS Transcribe Date/Time: Jan 21 2025 11:14P Dictated by : HILLARY MIRZA MD This examination was interpreted and the report reviewed and electronically signed by: HILLARY MIRZA MD on Jan 21 2025 11:14PM EST Meds Given During Visit ED Medication Administration from 01/21/20257 to 01/21/2025 2328 Date/Time Order Dose Route Action 01/03 (more content not included)... Normal [facility] HIGH SENSITIVITY TROPONIN I (INITIAL)on 01-21-2025 Tropinin I.cardiac panel High sensitivity method 4.8 pg/mL Normal 0.0-34.0 [facility] Comment on above: Order Comment: Speci men Type: BLOOD SPECIMENOrdering Facility: [facility] Address: [address] [place] [address] Performed By: #### 2 4323-8, 3040-3, 47265-5, 71303-9, [id number] ####[facility] [id number] [place] [id number] [place] HIGH SENSITIVITY TROPONIN I (SECOND)on 01-21-2025 Tropinin I.cardiac panel High sensitivity method 13.0 pg/mL Normal 0.0-34.0 [facility] Comment on above: Order Comment: Speci men Type: BLOOD SPECIMENOrdering Facility: [facility] Address: [facility] [place] [address] Performed By: #### H STROPI2, 3016-3 ####[facility]ORY[facility] [id number] [place] [id number] [place] HISTORY PHYSICALon HISTORY PHYSICAL HNO ID: [id number] Author: MEGGAN HUNT DO Service: Hospital Medicine Author Type: Physician Type: H&P Filed: 01/22/2025 05:15 Note Text: HISTORY AND PHYSICAL EXAMINATION SERVICE DATE: 01/21/2025 SERVICE TIME: 11:22 PM PRIMARY CARE PHYSICIAN: Florencia Barnes CNP Subjective CHIEF COMPLAINT: Chest pain HPI: This is a 69 year old female who presents with Chest pain earlier today had smoothie then felt indigestion but then pain radiated to left shoulder into back nausea one episode emesis no history of cardiac disease but does take lisinopril for high blood pressure, abnormal stress test decades ago but cath since then was 'normal' sinus zee on EKG, patient denies ever being told of a slow heart rate, felt she was generally quite healthy trying to eat well and staying active mainly by watching her 2 year old grandchild, did have one event of covid since her last cardiac testing which did not need hospitalized with just a few days of fever, cough, not much taste change, not hypoxic. Her asthma is from an inhalant event when she was younger that scarred her lungs she says. FUNCTIONAL STATUS: Independent PAST MEDICAL HISTORY Diagnosis Date Cervical cancer (HCC) Skin cancer PAST SURGICAL HISTORY Procedure Laterality Date BACK SURGERY HX 2000 BLADDER SURGERY HX HIP SURGERY HX Right 2019 POST-CATARACT LASER SURGERY Bilateral 2022 TOTAL ABDOM HYSTERECTOMY FAMILY HISTORY Problem Relation Age of Onset Prostate Cancer Father Social History Tobacco Use Smoking status: Never Smokeless tobacco: Never Vaping Use Vaping status: Never Used Substance Use Topics Alcohol use: Never Drug use: Never Prior to Admission Medications Prescriptions Last Dose Informant Patient Reported? Taking? albuterol HFA (PROVENTIL HFA, VENTOLIN HFA) 90 mcg/actuation inhaler 01/21/2025 Noon Yes Yes Sig: INHALE TWO PUFFS EVERY 4 HOURS NEEDED FOR WHEEZE fluticasone-salmetero l (ADVAIR, WIXELA) 250-50 mcg/dose inhaler 01/21/2025 Morning Yes Yes Sig: INHALE 1 PUFF TWICE DAILY FOR 30 DAYS lisinopril-hydroCHLOR Othiazide (ZESTORETIC) 20-12.5 mg per tablet 01/21/2025 Morning Yes Yes Sig: Take 1 tablet by mouth every afternoon. montelukast (SINGULAIR) 10 mg tablet 01/20/2025 Evening Yes Yes Sig: Take 1 tablet by mouth every afternoon. Facility-Administered Medications: None ALLERGIES Allergen Reactions Sulfa (Sulfonamide * Rash COMPLETE REVIEW OF SYSTEMS: See HPI Objective PHYSICAL EXAM: Physical Exam Performed: GENERAL: Alert, no distress, cooperative LUNGS: Lungs clear to auscultation, Good diaphragmatic excursion CARDIAC: Normal S1 and S2; no rubs, murmurs, or gallops; chest pain not reproducible with palpation or arm movement ABDOMEN: Soft, nontender EXTREMITIES: Normal exam of the extremities NEURO: Grossly normal cognition, motor function, and cranial nerves III-XII BP 111/71 Pulse 50 Temp (Src) 98 (Oral) Resp 18 Ht 5' 6 (1.68m) Wt 158 lb 1.1 oz (71.7kg) SpO2 100% BMI 25.53 kg/(m2). O2 Therapy: Room Air DATA: Diagnostic tests reviewed for today's visit: Most recent labs and imaging results. Assessment/Plan Active Hospital Problems Chest pain, moderate coronary artery risk (POA: Yes) Observation with continuous cardiac telemetry, exercise nuclear cardiac stress test and echocardiogram looking for any contributory valvular disease or LVH/hypertensive heart disease, also to evaluate for potentially new bradycardia. Troponin was initially 4.8 pg/mL at 2 hours still within normal range but up 2-3x so should check a third for completeness sake of trend to make sure not starting to spike. Risk stratification with lipid profile and A1c. Will consult cardiology to follow-up on results of this if further intervention indicated but for sinus bradycardia Acute hypokalemia (POA: Yes) Replenished in the ER with 40 mEq potassium chloride p.o. and currently ER gave magnesium sulfate 2 g IV for level of 1.8 mg/dL in the context of cardiac disease, was 3.0 mmol/L will recheck again in a.m. Sinus bradycardia (POA: Yes) Asymptomatic for the most part but patient thinks this is brand-new, does not just while sleeping or associated with a hypoxic state. Echocardiogram and cardiology consultation for consideration HTN (hypertension) (POA: Yes) Patient's home lisinopril 20 mg p.o. daily but will hold on hydrochlorothiazide for the time being if it is causing dehydration or electrolyte abnormalities until those correct and blood pressures are quite soft 100-110 systolic has room to go up Asthma with chronic obstructive pulmonary disease (COPD) (HCC) (POA: Yes) Home montelukast Advair or formulary equivalent and albuterol as needed Full code by default not discussed due to patient's good baseline functional status without significant chronic life-limiting comorbidities Assessment AND Plan Chest pain, moderate coronary artery risk HTN (hyp (more content not included)... Normal [facility] HbA1c (Bld)on 01-21-2025 Average glucose Estimated from glycated hemoglobin (Bld) [Mass/Vol] 108 mg/dL Normal [facility] Comment on above: Order Comment: Pedro Pablo valdes Type: BLOOD SPECIMEN Ordering Facility: [facility] Address: [address] [place] [address] Result Comment: eAG: (Estimated average glucose) is a calculated value from HgbA1c and is sales representative printing paper of the average blood glucose level in the last 2-3 month period. Performed By: #### 5 7021-8 #### [facility] CLIA [id number] [address] [place] [address] [place] #### 92066-0 #### [facility] CLIA [id number] [address] [place] [address] [place] HbA1c (Bld) [Mass fraction] 5.4 % Normal 4.3-5.6 [facility] Comment on above: Order Comment: Pedro Pablo valdes Type: BLOOD SPECIMEN Ordering Facility: [facility] Address: [address] [place], [place] [address] Result Comment: [place] Diabetes Association guidelines indicate that patients with HgbA1c in the range 5.7-6.4% are at increased risk for development of diabetes, and intervention by lifestyle modification may be beneficial. HgbA1c greater or equal to 6.5% is considered diagnostic of diabetes. Performed By: #### 5 7021-8 #### [facility] CLIA [id number] [address] [place] [address] [place] #### 57343-6 #### [facility] CLIA [id number] [address] [place] [address] [place] [address] [place] Lipase SerPl-cCncon 01-22-20 25 Lipase [Catalytic activity/Vol] 56 U/L Normal 12-60 [facility] Comment on above: Order Comment: Speci men Type: BLOOD SPECIMEN Ordering Facility: [facility] Address: [address] [place] [address] Performed By: #### 2 4323-8, 3040-3, 23482-7, 54740-5, [id number] #### [facility] CLIA [id number] [address] [place] [address] [place] Magnesium SerPl-mCncon 01-21 Magnesium [Mass/Vol] 1.8 mg/dL Normal 1.6-2.6 [facility] Comment on above: Order Comment: Speci men Type: BLOOD SPECIMENOrdering Facility: [facility] Address: [address] [place] [address] Performed By: #### 2 4323-8, 3040-3, 13998-1, 19065-2, [id number] ####[facility]ATORYCLIA [id number] [place] [address] [place] NT-proBNP SerPl-mCncon 01-21 Natriuretic peptide.B prohormone N-Terminal [Mass/Vol] 204 pg/mL High <125 [facility] Comment on above: Order Comment: Speci men Type: BLOOD SPECIMENOrdering Facility: [facility] Address: [facility] [place] [address] Result Comment: NT-p roBNP results of less than 300 pg/mL likely rules out acute congestive heart failure with 99% predictive value. NOTE: These cutoff points are suggested for ACUTE CHF DIAGNOSIS only Less than 50 years\X09\ Greater than 450 pg/mL 50 - 75 years\X09\\X09\ Greater than 900 pg/mL Greater than 75 years\X09\ Greater than 1800 pg/mL Performed By: #### 2 4323-8, 3040-3, 94734-0, 23879-4, [id number] ####[facility]ATORYCLIA [id number] [place] [id number] [place] TSH SerPl-aCncon 01-21-2025 TSH Qn 1.188 m[IU]/L Normal 0.358-3.74 0 [facility] Comment on above: Order Comment: Speci men Type: BLOOD SPECIMENOrdering Facility: [facility] Address: [address] [place] [address] Result Comment: 3rd generation ultra sensitive TSH. Performed By: #### H STROPI2, 3016-3 ####[facility]ORYCLIA [id number] [address] [place] XR CHEST 1V FRONTAL PORTon 0 01-21-2025 XR CHEST 1V FRONTAL PORT * * *Final Repo rt* * * DATE OF EXAM: Jan 21 2025 9:50PM RHX [id number] - XR CHEST 1V FRONTAL PORT / PROCEDURE REASON: Chest pain * * * * Physician Interpretation * * * * EXAMINATION: CHEST RADIOGRAPH (PORTABLE SINGLE VIEW AP) Exam Date/Time: 01/21/2025 9:50 PM CLINICAL HISTORY: Chest pain MQ: XCPR_5 Comparison: 07/09/2021 RESULT: Lines, tubes, and devices: N/A Lungs and pleura: No focal infiltrates or pleural effusions. _ No pneumothorax. Cardiomediastinal silhouette: Stable cardiomediastinal silhouette. Bones and soft tissues: The bony thorax is intact. IMPRESSION: No acute radiographic abnormality. Forest Ranger Technician: ANDREAS Transcribe Date/Time: Jan 21 2025 11:14P Dictated by : HILLARY MIRZA MD This examination was interpreted and the report reviewed and electronically signed by: HILLARY MIRZA MD on Jan 21 2025 11:14PM EST [id number] N Normal [facility] Pathology biopsy report Charbel (Tiss)on 12-19-2024 AP DISCLAIMER [facility] Comment on above: Order Comment: Speci men Type: TISSUE SPECIMEN Ordering Facility: [facility] Address: [address] [place] [address] Result Comment: Lucien bowen Developed Test (LDT) Disclaimer: Performance characteristics of immunohistochemical, immunofluorescent, and chromogenic in-situ hybridization tests have been determined by the performing laboratory within [facility]'s [facility] Pathology and Laboratory Medicine Department ([facility], [facility], [facility], [facility], [facility], [facility], 1928[facility]1983, or [facility]) in a manner consistent with CLIA requirements. One or more of these tests may not have been cleared or approved by the FDA. [facility] is regulated under CLIA as qualified to perform high-complexity testing. These tests are used for clinical purposes. These should not be regarded as investigational or for research. Positive and negative controls stain appropriately. Performed By: #### 6 6121-5 #### [facility] CLIA [id number] [address] [place] [address] [place] CASE REPORT Normal [facility] Comment on above: Order Comment: Speci keisha Type: TISSUE SPECIMEN Ordering Facility: [facility] Address: [address] [place] [address] Result Comment: Surg ical Pathology Report Case: [id number] Authorizing Provider: Jeremy Marin MD Collected: 12/19/2024 11:09 AM Ordering Location: [facility] Received: 12/20/2024 08:08 AM Pathologist: Kaitlynn Bird MD Specimen: Skin, Excision, Right lower eyelid mass Performed By: #### 6 6121-5 #### [facility] CLIA [id number] [address] [place] [address] [place] CLINICAL HISTORY D48.5 Mass right lower eyelid Normal [facility] Comment on above: Order Comment: Speci men Type: TISSUE SPECIMEN Ordering Facility: [facility] Address: [address] [place] [address] Performed By: #### 6 6121-5 #### [facility] CLIA [id number] [address] FINAL DIAGNOSIS [facility] Comment on above: Order Comment: Speci men Type: TISSUE SPECIMEN Ordering Facility: [facility] Address: [address] [place] [address] Result Comment: A. R ight lower eyelid mass, excision: - Ulcerated basal cell carcinoma, nodular and infiltrative type, focally Present at the tips/ends. - Deep and lateral surgical margins are negative for malignancy. at 1213 EDT Performed By: #### 6 6121-5 #### [facility] CLIA [id number] [address] [place] [address] FINAL PERFORMING LAB [facility] Comment on above: Order Comment: Speci men Type: TISSUE SPECIMEN Ordering Facility: [facility] Address: [address] [place] [address] Result Comment: Diag nostic interpretation performed at: [facility], [address] [place] [address] CLIA# [id number] Coat Presser: Kaitlynn Bird MD Performed By: #### 6 6121-5 #### [facility] CLIA [id number] [address] [place] [address] GROSS DESCRIPTION [facility] Comment on above: Order Comment: Speci men Type: TISSUE SPECIMEN Ordering Facility: [facility] Address: [address] [place] [address] Result Comment: A. S kin, Excision Received in formalin and designated right lower eyelid mass checked is a kaufman-murdock, mottled, wedge-shaped portion of skin that is not oriented, 0.8 x 0.5 x 0.5 cm. The cut margins of resection are inked blue. The specimen is trisected and has a kaufman cut surface. The specimen is entirely submitted with cassette A1 being the ends with the ink side down, A2- midportion. Gross examination performed at [facility] [address] [place] [address] KMM 12/20/24 8:31 AM Performed By: #### 6 6121-5 #### [facility] CLIA [id number] [address] [place], [place] [id number] [facility] MICROSCOPIC DESCRIPTION Five H AND E sta ined slides are examined. [facility] Comment on above: Order Comment: Speci men Type: TISSUE SPECIMEN Ordering Facility: [facility] Address: [facility] [place] [address] Performed By: #### 6 6121-5 #### [facility] CLIA [id number] [address] [place], [place] [address] [facility] CNOVon 10-12-2024 CNOV Office Visit (UCUPNO ) MARCI GALAN ([id number]) 1955 F Date Time Provider Department 10/12/24 11:35 AM SRINIVAS AGUILAR During your visit today, we recorded the following information about you: Temperature Pulse Respiration Blood pressure 98 degrees 73/minute 18/minute 118/85 Weight 68 kg Srinivas Aguilar APRN.AUDIO PRODUCTION MANAGER 10/12/2024 12:50 PM Signed October 12, 2024 HPI: Marcijohn Galan is a 69 year old female who presents today for 4 days with a sore throat, headache,sinus drainage and pressure. Robitussin dm last dose this am PAST MEDICAL HISTORY Diagnosis Date Cervical cancer (HCC) Skin cancer PAST SURGICAL HISTORY Procedure Laterality Date BACK SURGERY HX 2000 BLADDER SURGERY HX HIP SURGERY HX Right 2020 POST-CATARACT LASER SURGERY Bilateral 2022 TOTAL ABDOM HYSTERECTOMY FAMILY HISTORY Problem Relation Age of Onset Prostate Cancer Father Social History Tobacco Use Smoking status: Never Smokeless tobacco: Never Vaping Use Vaping status: Never Used Substance Use Topics Alcohol use: Never Drug use: Never ALLERGIES Allergen Reactions Sulfa (Sulfonamide * Rash There is no immunization history on file for this patient. Current Medications: albuterol HFA (PROVENTIL HFA, VENTOLIN HFA) 90 mcg/actuation inhaler INHALE TWO PUFFS EVERY 4 HOURS NEEDED FOR WHEEZE fluticasone-salmetero l (ADVAIR, WIXELA) 250-50 mcg/dose inhaler INHALE 1 PUFF TWICE DAILY FOR 30 DAYS montelukast (SINGULAIR) 10 mg tablet Take 1 tablet by mouth every afternoon. lisinopril-hydroCHLOR Othiazide (ZESTORETIC) 20-12.5 mg per tablet Take 1 tablet by mouth every afternoon. Review of Systems Constitutional: Negative for chills and fever. HENT: Positive for congestion and sore throat. Negative for ear pain. Eyes: Negative for redness. Respiratory: Positive for cough. Negative for shortness of breath. Cardiovascular: Negative for chest pain. Gastrointestinal: Negative for abdominal pain, diarrhea, nausea and vomiting. Genitourinary: Negative. Musculoskeletal: Negative for myalgias. Skin: Negative for rash. All other systems reviewed and are negative. Objective BP 130/87 Pulse 73 Temp (Src) 98 (Oral) Resp 18 Wt 149 lb 14.6 oz (68.0kg) SpO2 98% Physical Exam Constitutional: General: She is not in acute distress. Appearance: Normal appearance. She is not ill-appearing or toxic-appearing. HENT: Head: Normocephalic and atraumatic. Right Ear: Tympanic membrane normal. Left Ear: Tympanic membrane normal. Nose: Congestion present. Mouth/Throat: Mouth: Mucous membranes are moist. Pharynx: Oropharynx is clear. Uvula midline. No posterior oropharyngeal erythema or uvula swelling. Tonsils: No tonsillar exudate or tonsillar abscesses. 1+ on the right. 1+ on the left. Eyes: Conjunctiva/sclera: Conjunctivae normal. Right eye: Right conjunctiva is not injected. No exudate. Left eye: Left conjunctiva is not injected. No exudate. Cardiovascular: Rate and Rhythm: Normal rate and regular rhythm. Pulmonary: Effort: Pulmonary effort is normal. No respiratory distress. Breath sounds: Normal breath sounds. No stridor. No wheezing. Musculoskeletal: Cervical back: Normal range of motion and neck supple. No rigidity or tenderness. Lymphadenopathy: Cervical: No cervical adenopathy. Skin: General: Skin is warm and dry. Capillary Refill: Capillary refill takes less than 2 seconds. Findings: No petechiae or rash. Neurological: Mental Status: She is alert and oriented to person, place, and time. Psychiatric: Mood and Affect: Mood normal. Behavior: Behavior normal. Medical Decision Making: Problems: Low: Acute, uncomplicated illness or injury Data: Unique source(s) for external note(s) reviewed: 1 Unique test result(s) reviewed: 1 Unique test(s) ordered: 1 Risk: Low: Low risk from testing/treatment Medical Decision Making Level: 3 - Low ASSESSMENT/PLAN: 1. Upper respiratory tract infection, unspecified type - ICD9: 465.9, ICD10: J06.9 - Discussed viral etiology and rationale for treatment. - Symptomatic treatment with prn analgesia - Supportive care with fluids and rest - Follow up in 3-5 days if symptoms persist or sooner if worsening of symptoms - FLUTICASONE PROPIONATE 50 MCG/ACTUATION NASAL SPRAY,SUSPENSION Srinivas Aguilar APRN.ANIVAL The above reflects my independent exam and review of the patient's medical record. I saw and examined the patient myself personally. Parts of the HPI, ROS, exam, impression/plan, and testing results may have been copied from the current or previous clinical notes and remain pertinent to today's visit. Current changes have been made and documented today. Voice recognition device used, may be minor grammar or spelling errors. Srinivas Aguilar APRN.CNP 10/12/2024 12:45 PM Signed Pt will follow up with (more content not included)... [facility] DBT Breast - bilateral scree archie 10-05-2024 IMPRESSION: There is no mammographic evidence of malignancy in either breast. Routine screening mammogram is recommended. Annual mammogram will be due in 1 year. BI-RADS Category 1: Negative RISK: Based on the Tyrer-Cuzick (TC) risk assessment model, this patient has a 1.4% lifetime risk of developing breast cancer, meaning they are at average risk for developing breast cancer. However, this is only an estimate based on available history provided on the patient's questionnaire. We encourage all patients to talk with their providers about these results, further recommendations for managing breast health, and appropriate supplemental screening options if the patient has dense breast tissue. Interpreting Radiologist: Nora Monet M.D. Electronically signed on: 10/05/2024 Forest Ranger Technician: LESLYE Transcrievin Date/Time: Oct 05 2024 12:50P Dictated by : NORA MONET MD This examination was interpreted and the report reviewed and electronically signed by: NORA MONET MD on Oct 05 2024 3:58PM EST [facility] * * *Final Report* * * DATE OF EXAM: Oct 05 2024 1:10PM W 0582 - TIGRE SCREENING W CRISS / PROCEDURE REASON: [id number], [id number] BILAT SCREEN MAMMO W/CAD Z12.31 * * * * Physician Interpretation * * * * [address] [place] [address] #[id number] - TIGRE SCREENING W CRISS HISTORY: 69 year-old patient seen for screening and is asymptomatic in both breasts. Patient states no personal history of breast cancer. Patient states no personal history of other cancers. COMPARISON STUDIES: The present examination has been compared to prior imaging studies dated 08/13/2020 (mammogram) and 09/21/2022 (mammogram). MAMMOGRAM TECHNIQUE: The study was acquired using full field digital technology and interpreted from soft copy. Digital Breast Tomosynthesis (DBT) images were obtained and used to assist in the interpretation of this examination. MAMMOGRAM FINDINGS: The breasts are almost entirely fatty. No suspicious masses, calcifications or other abnormalities are seen in either breast. There are no significant interval changes. [facility] Provider, [facility] Imagin g Winifred - 10/05/2024 * * *Final Report* * * DATE OF EXAM: Oct 05 2024 1:10PM RHW 0582 - TIGRE SCREENING W CRISS / PROCEDURE REASON: [id number], [id number] BILAT SCREEN MAMMO W/CAD Z12.31 * * * * Physician Interpretation * * * * [address] [place] [address] #[id number] - TIGRE SCREENING W CRISS HISTORY: 69 year-old patient seen for screening and is asymptomatic in both breasts. Patient states no personal history of breast cancer. Patient states no personal history of other cancers. COMPARISON STUDIES: The present examination has been compared to prior imaging studies dated 08/13/2020 (mammogram) and 09/21/2022 (mammogram). MAMMOGRAM TECHNIQUE: The study was acquired using full field digital technology and interpreted from soft copy. Digital Breast Tomosynthesis (DBT) images were obtained and used to assist in the interpretation of this examination. MAMMOGRAM FINDINGS: The breasts are almost entirely fatty. No suspicious masses, calcifications or other abnormalities are seen in either breast. There are no significant interval changes. IMPRESSION IMPRESSION: There is no mammographic evidence of malignancy in either breast. Routine screening mammogram is recommended. Annual mammogram will be due in 1 year. BI-RADS Category 1: Negative RISK: Based on the Tyrer-Cuzick (TC) risk assessment model, this patient has a 1.4% lifetime risk of developing breast cancer, meaning they are at average risk for developing breast cancer. However, this is only an estimate based on available history provided on the patient's questionnaire. We encourage all patients to talk with their providers about these results, further recommendations for managing breast health, and appropriate supplemental screening options if the patient has dense breast tissue. Interpreting Radiologist: Nora Monet M.D. Electronically signed on: 10/05/2024 Forest Ranger Technician: LESLYE Transcribe Date/Time: Oct 05 2024 12:50P Dictated by : NORA MONET MD This examination was interpreted and the report reviewed and electronically signed by: NORA MONET MD on Oct 05 2024 3:58PM EST [facility] Radiology Study observation (narrative) [facility] DBT Breast - bilateral scree ningOrdered By: [facility] Provider on 10-05-2024 [facility] TIGRE SCREENING W TOMOon 10-05 TIGRE SCREENING W CRISS * * *Final Report* * * DATE OF EXAM: Oct 05 2024 1:10PM W 0582 - TIGRE SCREENING W CRISS / PROCEDURE REASON: [id number], [id number] BILAT SCREEN MAMMO W/CAD Z12.31 * * * * Physician Interpretation * * * * [facility] [address] [facility] [address] [place] [address] #[id number] - TIGRE SCREENING W CRISS HISTORY: 69 year-old patient seen for screening and is asymptomatic in both breasts. Patient states no personal history of breast cancer. Patient states no personal history of other cancers. COMPARISON STUDIES: The present examination has been compared to prior imaging studies dated 08/13/2020 (mammogram) and 09/21/2022 (mammogram). MAMMOGRAM TECHNIQUE: The study was acquired using full field digital technology and interpreted from soft copy. Digital Breast Tomosynthesis (DBT) images were obtained and used to assist in the interpretation of this examination. MAMMOGRAM FINDINGS: The breasts are almost entirely fatty. No suspicious masses, calcifications or other abnormalities are seen in either breast. There are no significant interval changes. IMPRESSION: There is no mammographic evidence of malignancy in either breast. Routine screening mammogram is recommended. Annual mammogram will be due in 1 year. BI-RADS Category 1: Negative RISK: Based on the Tyrer-Cuzick (TC) risk assessment model, this patient has a 1.4% lifetime risk of developing breast cancer, meaning they are at average risk for developing breast cancer. However, this is only an estimate based on available history provided on the patient's questionnaire. We encourage all patients to talk with their providers about these results, further recommendations for managing breast health, and appropriate supplemental screening options if the patient has dense breast tissue. Interpreting Radiologist: Nora Monet M.D. Electronically signed on: 10/05/2024 Forest Ranger Technician: LESLYE Transcribe Date/Time: Oct 05 2024 12:50P Dictated by : NORA MONET MD This examination was interpreted and the report reviewed and electronically signed by: NORA MONET MD on Oct 05 2024 3:58PM EST [id number] Normal [facility] .Auto Diffon 07-31-2024 Basophil, Absolute 0.1 10 3/mcL Normal 0.0-0.3 [facility] Comment on above: Performed By: #### L IPID, ANEU, CMP, CBC, GFR, ADIFF #### [facility] [address] [place], [place] [address] Basophils/100 WBC (Bld) 1.5 % Normal 0.0-2.5 [facility] Comment on above: Performed By: #### L IPID, ANEU, CMP, CBC, GFR, ADIFF #### [address] [address] Eosinophil, Absolute 0.1 10 3/mcL Normal 0.0-0.7 [facility] Comment on above: Performed By: #### L IPID, ANEU, CMP, CBC, GFR, ADIFF #### [address] [address] Eosinophils/100 WBC (Bld) 1.9 % Normal 0.0-6.0 [facility] Comment on above: Performed By: #### L IPID, ANEU, CMP, CBC, GFR, ADIFF #### [address] [address] Lymphocyte, Absolute 1.9 10 3/mcL Normal 0.9-4.3 [facility] Comment on above: Performed By: #### L IPID, ANEU, CMP, CBC, GFR, ADIFF #### [address] [address] Lymphocytes/100 WBC (Bld) 29.2 % Normal 20.0-40.0 [facility] Comment on above: Performed By: #### L IPID, ANEU, CMP, CBC, GFR, ADIFF #### [address] [address] Monocyte, Absolute 0.4 10 3/mcL Normal 0.1-1.4 [facility] Comment on above: Performed By: #### L IPID, ANEU, CMP, CBC, GFR, ADIFF #### [address] [address] Monocytes/100 WBC (Bld) 6.4 % Normal 2.0-13.0 [facility] Comment on above: Performed By: #### L IPID, ANEU, CMP, CBC, GFR, ADIFF #### [address] [address] Neutrophils/100 WBC (Bld) 61.0 % Normal 50.0-75.0 [facility] Comment on above: Performed By: #### L IPID, ANEU, CMP, CBC, GFR, ADIFF #### [address] [address] .GFRon 07-31-2024 GFR >60 Normal [facility] Comment on above: Result Comment: GFR Population mean for , Non- Americans Ages 20-29 = 116 mL/min/1.73 sq.m. Ages 30-39 = 107 mL/min/1.73 sq.m. Ages 40-49 = 99 mL/min/1.73 sq.m. Ages 50-59 = 93 mL/min/1.73 sq.m. Ages 60-69 = 85 mL/min/1.73 sq.m. Ages 70+ = 75 mL/min/1.73 sq.m. Chronic Kidney Disease: Less than 60 mL/min/1.73 square meters End Stage Renal Disease: Less than 15 mL/min/1.73 square meters Performed By: #### L IPID, ANEU, CMP, CBC, GFR, ADIFF #### [place] [address] GFR Non- >60 Normal [facility] Comment on above: Result Comment: GFR Population mean for , Non- Americans Ages 20-29 = 116 mL/min/1.73 sq.m. Ages 30-39 = 107 mL/min/1.73 sq.m. Ages 40-49 = 99 mL/min/1.73 sq.m. Ages 50-59 = 93 mL/min/1.73 sq.m. Ages 60-69 = 85 mL/min/1.73 sq.m. Ages 70+ = 75 mL/min/1.73 sq.m. Chronic Kidney Disease: Less than 60 mL/min/1.73 square meters End Stage Renal Disease: Less than 15 mL/min/1.73 square meters Performed By: #### L IPID, ANEU, CMP, CBC, GFR, ADIFF #### [address] [address] .NEUABSon 07-31-2024 Neutrophil, Absolute 4.0 10 3/mcL Normal 2.3-8.1 [facility] Comment on above: Performed By: #### L IPID, ANEU, CMP, CBC, GFR, ADIFF #### [place] [id number] CBCon 07-31-2024 Erythrocyte distribution width (RBC) [Ratio] 12.7 % Normal 11.5-15.5 [facility] Comment on above: Performed By: #### L IPID, ANEU, CMP, CBC, GFR, ADIFF #### [place] [address] Hematocrit (Bld) [Volume fraction] 36.7 % Normal 34.0-46.0 [facility] Comment on above: Performed By: #### L IPID, ANEU, CMP, CBC, GFR, ADIFF #### [place] [address] Hgb 12.4 G/dL Normal 12.0-16.0 [facility] Comment on above: Performed By: #### L IPID, ANEU, CMP, CBC, GFR, ADIFF #### [place] [address] MCH (RBC) [Entitic mass] 31.1 pg Normal 27.0-33.0 [facility] Comment on above: Performed By: #### L IPID, ANEU, CMP, CBC, GFR, ADIFF #### [place] [address] MCHC 33.8 G/dL Normal 32.0-36.0 [facility] Comment on above: Performed By: #### L IPID, ANEU, CMP, CBC, GFR, ADIFF #### [place] [address] MCV (RBC) [Entitic vol] 91.9 fL Normal 80.0-99.0 [facility] Comment on above: Performed By: #### L IPID, ANEU, CMP, CBC, GFR, ADIFF #### [place] [address] Platelet 244 10 3/mcL Normal 150-450 [facility] Comment on above: Performed By: #### L IPID, ANEU, CMP, CBC, GFR, ADIFF #### [place] [id number] Platelet mean volume (Bld) [Entitic vol] 9.1 fL Normal 6.6-10.5 [facility] Comment on above: Performed By: #### L IPID, ANEU, CMP, CBC, GFR, ADIFF #### [address] [address] RBC 3.99 10 6/mcL Low 4.10-5.30 [facility] Comment on above: Performed By: #### L IPID, ANEU, CMP, CBC, GFR, ADIFF #### [place] [address] WBC 6.5 10 3/mcL Normal 4.5-10.8 [facility] Comment on above: Performed By: #### L IPID, ANEU, CMP, CBC, GFR, ADIFF #### [place] [address] CMPon 07-31-2024 Albumin Level 3.6 G/dL Normal 3.2-4.8 [facility] Comment on above: Performed By: #### L IPID, ANEU, CMP, CBC, GFR, ADIFF #### [place] [address] Albumin/Globulin [Mass ratio] 1.2 {ratio} Normal 0.9-1.6 [facility] Comment on above: Performed By: #### L IPID, ANEU, CMP, CBC, GFR, ADIFF #### [place] [id number] ALP [Catalytic activity/Vol] 67 U/L Normal 38-126 [facility] Comment on above: Performed By: #### L IPID, ANEU, CMP, CBC, GFR, ADIFF #### [place] [id number] ALT [Catalytic activity/Vol] 9 U/L Low 10-49 [facility] Comment on above: Performed By: #### L IPID, ANEU, CMP, CBC, GFR, ADIFF #### [place] [id number] AST [Catalytic activity/Vol] 19 U/L Normal 8-34 [facility] Comment on above: Performed By: #### L IPID, ANEU, CMP, CBC, GFR, ADIFF #### [address] [address] Bili Total 0.60 mg/dL Normal 0.20-1.20 [facility] Comment on above: Result Comment: Use of this assay is not recommended for patients undergoing treatment with eltrombopag due to the potential for falsely elevated results. Performed By: #### L IPID, ANEU, CMP, CBC, GFR, ADIFF #### [place] [id number] BUN/Creatinine Ratio 20.5 ratio Normal 10.0-22.0 [facility] Comment on above: Performed By: #### L IPID, ANEU, CMP, CBC, GFR, ADIFF #### [place] [id number] Calcium [Mass/Vol] 9.9 mg/dL Normal 8.7-10.4 [facility] Comment on above: Performed By: #### L IPID, ANEU, CMP, CBC, GFR, ADIFF #### [place] [id number] Chloride [Moles/Vol] 107 mmol/L Normal 98-110 [facility] Comment on above: Performed By: #### L IPID, ANEU, CMP, CBC, GFR, ADIFF #### [place] [id number] CO2 [Moles/Vol] 29 mmol/L Normal 22-32 [facility] Comment on above: Performed By: #### L IPID, ANEU, CMP, CBC, GFR, ADIFF #### [address] [address] Creatinine [Mass/Vol] 0.83 mg/dL Normal 0.50-1.20 [facility] Comment on above: Result Comment: Test ing performed on [employer] analyzer using enzymatic creatinine methodology. Performed By: #### L IPID, ANEU, CMP, CBC, GFR, ADIFF #### [place] [id number] Electrolyte Balance 8.0 mEq/L Normal 4.0-15.0 [facility] Comment on above: Performed By: #### L IPID, ANEU, CMP, CBC, GFR, ADIFF #### [address] [address] Globulin 3.1 G/dL Normal 1.5-3.8 [facility] Comment on above: Performed By: #### L IPID, ANEU, CMP, CBC, GFR, ADIFF #### [address] [address] Glucose [Mass/Vol] 87 mg/dL Normal 82-115 [facility] Comment on above: Performed By: #### L IPID, ANEU, CMP, CBC, GFR, ADIFF #### [address] [address] Potassium [Moles/Vol] 3.9 mmol/L Normal 3.5-5.0 [facility] Comment on above: Performed By: #### L IPID, ANEU, CMP, CBC, GFR, ADIFF #### [address] [address] Sodium [Moles/Vol] 144 mmol/L Normal 136-145 [facility] Comment on above: Performed By: #### L IPID, ANEU, CMP, CBC, GFR, ADIFF #### [address] [address] Total Protein 6.7 G/dL Normal 5.7-8.2 [facility] Comment on above: Performed By: #### L IPID, ANEU, CMP, CBC, GFR, ADIFF #### [address] [address] Urea nitrogen [Mass/Vol] 17.0 mg/dL Normal 8.0-22.0 [facility] Comment on above: Performed By: #### L IPID, ANEU, CMP, CBC, GFR, ADIFF #### [address] [address] LIPIDon 07-31-2024 Cholesterol [Mass/Vol] 183 mg/dL Normal 50-199 [facility] Comment on above: Result Comment: Chol esterol Reference Interval: Less than 200 Desirable 200-239 Borderline high risk 240 and above High risk Performed By: #### L IPID, ANEU, CMP, CBC, GFR, ADIFF #### [facility] [address] [place] [address] Cholesterol in HDL [Mass/Vol] 53 mg/dL Normal 40-59 [facility] Comment on above: Performed By: #### L IPID, ANEU, CMP, CBC, GFR, ADIFF #### [facility] [address] [place] [address] Cholesterol in LDL [Mass/Vol] 110 mg/dL Normal 0-129 [facility] Comment on above: Performed By: #### L IPID, ANEU, CMP, CBC, GFR, ADIFF #### [address] [address] Triglyceride [Mass/Vol] 101 mg/dL Normal 3-149 [facility] Comment on above: Performed By: #### L IPID, ANEU, CMP, CBC, GFR, ADIFF #### [address] [address] CNCOon 07-13-2024 [facility] Letter Text Normal [facility] UA DIP, URINE (POC)on 2023 BILIRUBIN UA (POCT) Negative Negative [facility] CLARITY UA (POCT) Clear [facility] COLOR UA (POCT) Yellow [facility] GLUCOSE UA (POCT) Negative Negative mg/dL [facility] Hemoglobin Ql (U) Trace-intact Abnormal Negative [facility] KETONE UA (POCT) Negative Negative mg/dL [facility] LEUKOCYTES UA (POCT) Trace Abnormal Negative [facility] NITRITE UA (POCT) Negative Negative [facility] PH UA (POCT) 5.5 4.5 - 8.0 [facility] Protein Ql (U) Negative Negative mg/dL [facility] SPECIFIC GRAVITY UA (POCT) 1.010 1 .005 - 1.030 [facility] UROBILINOGEN UA (POCT) 0.2 E.U./dL [place] E.U./dL [facility] .Auto Diffon 07-26-2023 Basophil, Absolute 0.0 10 3/mcL Normal 0.0-0.3 [facility] ([place]) Comment on above: Performed By: #### C MP, ANEU, TSH, CBC, GFR, ADIFF, LIPID #### [address] [address] Basophils/100 WBC (Bld) 0.9 % Normal 0.0-2.5 [facility] ([place]) Comment on above: Performed By: #### C MP, ANEU, TSH, CBC, GFR, ADIFF, LIPID #### [address] [address] Eosinophil, Absolute 0.1 10 3/mcL Normal 0.0-0.7 [facility] ([place]) Comment on above: Performed By: #### C MP, ANEU, TSH, CBC, GFR, ADIFF, LIPID #### [address] [address] Eosinophils/100 WBC (Bld) 2.7 % Normal 0.0-6.0 [facility] ([place]) Comment on above: Performed By: #### C MP, ANEU, TSH, CBC, GFR, ADIFF, LIPID #### [address] [address] Lymphocyte, Absolute 1.5 10 3/mcL Normal 0.9-4.3 [facility] ([place]) Comment on above: Performed By: #### C MP, ANEU, TSH, CBC, GFR, ADIFF, LIPID #### [address] [address] Lymphocytes/100 WBC (Bld) 28.1 % Normal 20.0-40.0 [facility] ([place]) Comment on above: Performed By: #### C MP, ANEU, TSH, CBC, GFR, ADIFF, LIPID #### [address] [address] Monocyte, Absolute 0.4 10 3/mcL Normal 0.1-1.4 [facility] ([place]) Comment on above: Performed By: #### C MP, ANEU, TSH, CBC, GFR, ADIFF, LIPID #### [address] [address] Monocytes/100 WBC (Bld) 8.2 % Normal 2.0-13.0 A [facility] ([place]) Comment on above: Performed By: #### C MP, ANEU, TSH, CBC, GFR, ADIFF, LIPID #### [address] [address] Neutrophils/100 WBC (Bld) 60.1 % Normal 50.0-75.0 [facility] ([place] Comment on above: Performed By: #### C MP, ANEU, TSH, CBC, GFR, ADIFF, LIPID #### [address] [address] .GFRon 07-26-2023 GFR >60 Normal [facility] ([place] Comment on above: Result Comment: GFR Population mean for , Non- Americans Ages 20-29 = 116 mL/min/1.73 sq.m. Ages 30-39 = 107 mL/min/1.73 sq.m. Ages 40-49 = 99 mL/min/1.73 sq.m. Ages 50-59 = 93 mL/min/1.73 sq.m. Ages 60-69 = 85 mL/min/1.73 sq.m. Ages 70+ = 75 mL/min/1.73 sq.m. Chronic Kidney Disease: Less than 60 mL/min/1.73 square meters End Stage Renal Disease: Less than 15 mL/min/1.73 square meters Performed By: #### C MP, ANEU, TSH, CBC, GFR, ADIFF, LIPID #### [address] [address] GFR Non- >60 Normal [facility] ([place]) Comment on above: Result Comment: GFR Population mean for , Non- Americans Ages 20-29 = 116 mL/min/1.73 sq.m. Ages 30-39 = 107 mL/min/1.73 sq.m. Ages 40-49 = 99 mL/min/1.73 sq.m. Ages 50-59 = 93 mL/min/1.73 sq.m. Ages 60-69 = 85 mL/min/1.73 sq.m. Ages 70+ = 75 mL/min/1.73 sq.m. Chronic Kidney Disease: Less than 60 mL/min/1.73 square meters End Stage Renal Disease: Less than 15 mL/min/1.73 square meters Performed By: #### C MP, ANEU, TSH, CBC, GFR, ADIFF, LIPID #### [place] [id number] .NEUABSon 07-26-2023 Neutrophil, Absolute 3.2 10 3/mcL Normal 2.3-8.1 [facility] ([place] Comment on above: Performed By: #### C MP, ANEU, TSH, CBC, GFR, ADIFF, LIPID #### [place] [address] CBCon 07-26-2023 Erythrocyte distribution width (RBC) [Ratio] 13.2 % Normal 11.5-15.5 [facility] ([place] Comment on above: Performed By: #### C MP, ANEU, TSH, CBC, GFR, ADIFF, LIPID #### [place] [address] Hematocrit (Bld) [Volume fraction] 36.0 % Normal 34.0-46.0 [facility] ([place] Comment on above: Performed By: #### C MP, ANEU, TSH, CBC, GFR, ADIFF, LIPID #### [place] [address] Hgb 12.1 G/dL Normal 12.0-16.0 [facility] ([place] Comment on above: Performed By: #### C MP, ANEU, TSH, CBC, GFR, ADIFF, LIPID #### [place] [address] MCH (RBC) [Entitic mass] 30.6 pg Normal 27.0-33.0 [facility] ([place] Comment on above: Performed By: #### C MP, ANEU, TSH, CBC, GFR, ADIFF, LIPID #### [place] [address] MCHC 33.6 G/dL Normal 32.0-36.0 [facility] ([place]) Comment on above: Performed By: #### C MP, ANEU, TSH, CBC, GFR, ADIFF, LIPID #### [place] [address] MCV (RBC) [Entitic vol] 91.0 fL Normal 80.0-99.0 A [facility] ([place]) Comment on above: Performed By: #### C MP, ANEU, TSH, CBC, GFR, ADIFF, LIPID #### [place] [address] Platelet 246 10 3/mcL Normal 150-450 [facility] ([place] Comment on above: Performed By: #### C MP, ANEU, TSH, CBC, GFR, ADIFF, LIPID #### [place] [address] Platelet mean volume (Bld) [Entitic vol] 8.9 fL Normal 6.6-10.5 [facility] ([place] Comment on above: Performed By: #### C MP, ANEU, TSH, CBC, GFR, ADIFF, LIPID #### [place] [address] RBC 3.95 10 6/mcL Low 4.10-5.30 [facility] ([place] Comment on above: Performed By: #### C MP, ANEU, TSH, CBC, GFR, ADIFF, LIPID #### [place] [address] WBC 5.4 10 3/mcL Normal 4.5-10.8 [facility] ([place] Comment on above: Performed By: #### C MP, ANEU, TSH, CBC, GFR, ADIFF, LIPID #### [place] [id number] CMPon 07-26-2023 Albumin Level 3.7 G/dL Normal 3.2-4.8 [facility] ([place] Comment on above: Performed By: #### C MP, ANEU, TSH, CBC, GFR, ADIFF, LIPID #### [place] [address] Albumin/Globulin [Mass ratio] 1.3 {ratio} Normal 0.9-1.6 [facility] ([place] Comment on above: Performed By: #### C MP, ANEU, TSH, CBC, GFR, ADIFF, LIPID #### [facility] [address] [place], [place] [address] ALP [Catalytic activity/Vol] 58 U/L Normal 38-126 [facility] ([place] Comment on above: Performed By: #### C MP, ANEU, TSH, CBC, GFR, ADIFF, LIPID #### [address] [address] ALT [Catalytic activity/Vol] 9 U/L Low 10-49 [facility] ([place] Comment on above: Performed By: #### C MP, ANEU, TSH, CBC, GFR, ADIFF, LIPID #### [address] [address] AST [Catalytic activity/Vol] 23 U/L Normal 8-34 [facility] ([place] Comment on above: Performed By: #### C MP, ANEU, TSH, CBC, GFR, ADIFF, LIPID #### [place] [id number] Bili Total 0.60 mg/dL Normal 0.20-1.20 [facility] ([place] Comment on above: Result Comment: Use of this assay is not recommended for patients undergoing treatment with eltrombopag due to the potential for falsely elevated results. Performed By: #### C MP, ANEU, TSH, CBC, GFR, ADIFF, LIPID #### [place] [address] BUN/Creatinine Ratio 31.5 ratio High 10.0-22.0 [facility] ([place] Comment on above: Performed By: #### C MP, ANEU, TSH, CBC, GFR, ADIFF, LIPID #### [place] [id number] Calcium [Mass/Vol] 9.3 mg/dL Normal 8.7-10.4 [facility] ([place]) Comment on above: Performed By: #### C MP, ANEU, TSH, CBC, GFR, ADIFF, LIPID #### [place] [id number] Chloride [Moles/Vol] 108 mmol/L Normal 98-110 [facility] ([place] Comment on above: Performed By: #### C MP, ANEU, TSH, CBC, GFR, ADIFF, LIPID #### [address] [address] CO2 [Moles/Vol] 29 mmol/L Normal 22-32 [facility] ([place] Comment on above: Performed By: #### C MP, ANEU, TSH, CBC, GFR, ADIFF, LIPID #### [address] [address] Creatinine [Mass/Vol] 0.73 mg/dL Normal 0.50-1.20 [facility] ([place] Comment on above: Performed By: #### C MP, ANEU, TSH, CBC, GFR, ADIFF, LIPID #### [address] [address] Electrolyte Balance 6.0 mEq/L Normal 4.0-15.0 [facility] ([place] Comment on above: Performed By: #### C MP, ANEU, TSH, CBC, GFR, ADIFF, LIPID #### [place] [id number] Globulin 2.8 G/dL Normal 1.5-3.8 [facility] ([place] Comment on above: Performed By: #### C MP, ANEU, TSH, CBC, GFR, ADIFF, LIPID #### [place] [address] Glucose [Mass/Vol] 90 mg/dL Normal 82-115 [facility] ([place] Comment on above: Performed By: #### C MP, ANEU, TSH, CBC, GFR, ADIFF, LIPID #### [place] [id number] Potassium [Moles/Vol] 4.1 mmol/L Normal 3.5-5.0 [facility] ([place] Comment on above: Performed By: #### C MP, ANEU, TSH, CBC, GFR, ADIFF, LIPID #### [place] [id number] Sodium [Moles/Vol] 143 mmol/L Normal 136-145 [facility] ([place] Comment on above: Performed By: #### C MP, ANEU, TSH, CBC, GFR, ADIFF, LIPID #### [address] [address] Total Protein 6.5 G/dL Normal 5.7-8.2 [facility] ([place]) Comment on above: Result Comment: No te - New Reference Range in effect 20 Performed By: #### C MP, ANEU, TSH, CBC, GFR, ADIFF, LIPID #### [address] [address] Urea nitrogen [Mass/Vol] 23.0 mg/dL High 8.0-22.0 [facility] ([place] Comment on above: Performed By: #### C MP, ANEU, TSH, CBC, GFR, ADIFF, LIPID #### [address] [address] LIPIDon 07-26-2023 Cholesterol [Mass/Vol] 180 mg/dL Normal 50-199 [facility] ([place] Comment on above: Result Comment: Chol esterol Reference Interval: Less than 200 Desirable 200-239 Borderline high risk 240 and above High risk Performed By: #### C MP, ANEU, TSH, CBC, GFR, ADIFF, LIPID #### [address] [address] Cholesterol in HDL [Mass/Vol] 59 mg/dL Normal 40-59 [facility] ([place] Comment on above: Performed By: #### C MP, ANEU, TSH, CBC, GFR, ADIFF, LIPID #### [address] [address] Cholesterol in LDL [Mass/Vol] 108 mg/dL Normal 0-129 [facility] ([place] Comment on above: Performed By: #### C MP, ANEU, TSH, CBC, GFR, ADIFF, LIPID #### [address] [address] Triglyceride [Mass/Vol] 67 mg/dL Normal 3-149 A [facility] ([place] Comment on above: Performed By: #### C MP, ANEU, TSH, CBC, GFR, ADIFF, LIPID #### [address] [address] TSHon 07-26-2023 TSH 1.571 mIU/mL Normal 0.550-4.78 0 [facility] ([place] Comment on above: Result Comment: No te - New Reference Range in effect 20 Performed By: #### C MP, ANEU, TSH, CBC, GFR, ADIFF, LIPID #### [facility] [address] [place] [id number] Absolute lymphocyte countOrd ered By: Raeann Cortés on 06-02-2023 Lymphocytes Auto (Unsp spec) [#/Vol] 1.28 10*3/uL 0.83-4.51 [facility] Basophil percentageOrdered B y: Raeann Cortés on 06-02-2023 Basophils/100 WBC (Bld) 0.9 % 0-1 [facility] Bilirubin [Mass/Vol] 0.40 mg/dL 0.20-1.00 [place] Comment on above: For patients on eltr ombopag therapy, use of Dimension [place] TBIL is not recommended. Chloride [Moles/Vol] 107 mmol/L 98-107 [place] Eosinophils/100 WBC (Bld) 2.7 % 0-5 [facility] Glucose [Mass/Vol] 93 mg/dL 74-106 [facility] Neutrophils (Bld) [#/Vol] 2.4 10*3/uL 2.0-7.7 [facility] Neutrophils/100 WBC (Bld) 53.7 % 47-70 [facility] Potassium [Moles/Vol] 3.4 mmol/L 3.5-5.1 [facility] Protein [Mass/Vol] 7.3 g/dL 6.4-8.2 [facility] Sodium [Moles/Vol] 140 mmol/L 136-145 [facility] WBC (Bld) [#/Vol] 4.5 10*3/uL 4.4-11.0 [facility] Blood erythrocytes count (nu mber/volume)Ordered By: Raeann Cortés on 06-02-2023 RBC (Bld) [#/Vol] 4.32 10*6/uL 4.2-5.4 [facility] Blood hemoglobin measurement (mass/volume)Ordered By: Raeann Coréts on 06-02-2023 Hemoglobin (Bld) [Mass/Vol] 13.6 g/dL 12.0-15. 0 [facility] Blood lymphocytes/100 leukoc ytesOrdered By: Raeann Cortés on 06-02-2023 Lymphocytes/100 WBC (Bld) 28.5 % 19-41 [facility] Blood monocytes/100 leukocyt esOrdered By: Raeann Cortés on 06-02-2023 Monocytes/100 WBC (Bld) 14.0 % 0-10 [facility] Blood platelet mean volumeOr dered By: Raenan Cortés on 06-02-2023 Platelet mean volume (Bld) [Entitic vol] 10.7 fL 6.2-12.0 [facility] Determination of erythrocyte mean corpuscular volume (MCV)Ordered By: Raeann Cortés on 06-02-2023 MCV (RBC) [Entitic vol] 93.1 fL 81-99 [facility] Hematocrit Auto (Bld) [Volum e fraction]Ordered By: Raeann Cortés on 06-02-2023 Hematocrit (Bld) [Volume fraction] 40.2 % 37-47 [facility] Laboratory - Chemistry and C hemistry - challengeOrdered By: Raeann Cortés on 06-02-2023 ALP [Catalytic activity/Vol] 64 U/L 45-117 [facility] ALT [Catalytic activity/Vol] 20 U/L 13-56 [facility] CO2 [Moles/Vol] 28.0 mmol/L 21.0-32.0 [facility] Free T4 [Mass/Vol] 0.84 ng/dL 0.76-1.46 [facility] Globulin (S) [Mass/Vol] 3.8 g/dL 2.2-4.2 [facility] Urea nitrogen/Creatinine [Mass ratio] 18.3 mg/mg 10-20 [facility] - Hematology and Cell countsOrdered By: Raeann Cortés on 06-02-2023 Erythrocyte distribution width (RBC) [Entitic vol] 42.5 fL 35.1-43.9 [facility] Erythrocyte distribution width (RBC) [Ratio] 12.4 % 11.6-14.6 [facility] Immature granulocytes/100 WBC (Bld) 0.200 % 0.0-0.9 [facility] Comment on above: IG% - Immature Granu locytes (promyelocytes, myelocytes and metamyelocytes) > 1% indicates that a LEFT SHIFT is Present. MCH (RBC) [Entitic mass] 31.5 pg 27.0-32.0 [facility] Nucleated RBC/100 WBC (Bld) [Ratio] 0 % 0-5 [facility] MCHC Auto (RBC) [Mass/Vol]Or dered By: Raeann Cortés on 06-02-2023 MCHC (RBC) [Mass/Vol] 33.8 g/dL 32-36 [facility] Mitotic spindle apparatus Ab [Titer] in Serum or PlasmaOrdered By: Raeann Cortés on 06-02-2023 Mitotic spindle apparatus Ab [Titer] [facility] Comment on above: Test not performed No Panel InformationOrdered By: Raeann Cortés on 06-02-2023 [place] Nuclear Membrane Pattern [facility] Comment on above: Test not performed Anti-Nuclear Antibody Comment 2 Comment . [facility] Comment on above: Pattern Potential Di sease Association Homogeneous Systemic Lupus Erythematosus, Drug Induced Systemic Lupus Erythematosus, Chronic Autoimmune hepatitis, Juvenile Idiopathic Arthritis Speckled Sjogren Syndrome, Systemic Lupus Erythematosus, Subacute Cutaneous Lupus, Lupus, Congenital Heart Block, Mixed Connective Tissue Disease, Scleroderma-diffuse, Scleroderma-Autoimmune Myositis Overlap Syndrome, Systemic Lupus Cqbhcrnjpcmbx-Fbrvtjwnbrg-Rsoshrwnae Myositis Overlap Syndrome, Systemic Autoimmune Rheumatic Disease, Undifferentiated Connective Tissue Disease Nucleolar Systemic Sclerosis, Scleroderma-Autoimmune Myositis Overlap Syndrome, Sjogren Syndrome, Raynaud phenomenon, Pulmonary Arterial Hypertension, Systemic Autoimmune Rheumatic Disease, Cancer Centromere Scleroderma-CREST, Limited Cutaneous SSc, Raynaud's Phenomenon, Primary Biliary Cholangitis Nuclear Dot Primary Biliary Cholangitis Nuclear Primary Biliary Cholangitis, AutoimmuneMembrane Hepatitis/Liver disease, Systemic Autoimmune Rheumatic Disease, Autoimmune Cytopenias, Linear Scleroderma, Antiphospholipid Syndrome Performed at: [facility] [address] [id number] Director: Jose Luis Bartlett PhD, Phone: [phone] Estimated GFR (MDRD) Amer 96 mL/min >60 [facility] Comment on above: GFR Calc Estimated GFR (MDRD) Non-Af Amer 79 mL/min >60 [facility] Comment on above: Non- GFR Calc Thyroid Stimulating Hormone (TSH) 2.39 uIU/mL 0.358-3.74 [facility] Platelets bldOrdered By: Elodia Cortés on 06-02-2023 Platelets (Bld) [#/Vol] 247 10*3/uL 150-450 [facility] Serum midbody antibody titer by immunofluorescenceOrdered By: Raeann Cortés on 06-02-2023 Midbody Ab IF (S) [Titer] [facility] Comment on above: Test not performed Serum multiple nuclear dot p attern antinuclear IgG antibody ([place]) titer by immunofluoOrdered By: Raeann Cortés on 06-02-2023 Multiple nuclear dots nuclear IgG pattern IF (S) [Titer] [facility] Comment on above: Test not performed Serum neuronal nuclear antib gayathri detection by immunofluorescenceOrdered By: Raeann Cortés on 06-02-2023 Neuronal nuclear Ab IF Ql (S) [facility] Comment on above: Test not performed Serum nuclear antibody patte rn homogenous titer by immunofluorescenceOrdered By: Raeann Cortés on 06-02-2023 Homogenous nuclear Ab pattern IF (S) [Titer] 1:160 . [facility] Comment on above: ICAP nomenclature: A C-1 Serum nuclear antibody patte rn interpretation by immunofluorescenceOrdered By: Raeann Cortés on 06-02-2023 Nuclear Ab pattern IF (S) [Interp] [facility] Comment on above: Test not performed Serum nuclear antibody titer by immunofluorescenceOrdered By: Raeann Cortés on 06-02-2023 Nuclear Ab IF (S) [Titer] Positive . [facility] Comment on above: Negative <1:80 Borde rline 1:80 Positive >1:80 Serum or plasma albumin claudia urement (mass/volume)Ordered By: Raeann Cortés on 06-02-2023 Albumin [Mass/Vol] 3.5 g/dL 3.2-5.0 [facility] Serum or plasma albumin/glob ulin mass ratioOrdered By: Raeann Cortés on 06-02-2023 Albumin/Globulin [Mass ratio] 0.9 {ratio} 0.9-2.4 [facility] Serum or plasma calcium claudia urement (mass/volume)Ordered By: Raeann Cortés on 06-02-2023 Calcium [Mass/Vol] 9.8 mg/dL 8.5-10.1 [facility] Serum or plasma creatinine m easurement (mass/volume)Ordered By: Raeann Cortés on 06-02-2023 Creatinine [Mass/Vol] 0.77 mg/dL 0.55-1.02 [facility] Comment on above: The validity of the calculated GFR & GFRAA in patients over 70 years has not been determined. Clinical correlation is essential. Serum or plasma ferritin ester surement (mass/volume)Ordered By: Raeann Cortés on 06-02-2023 Ferritin [Mass/Vol] 116 ng/mL 8-252 [facility] Serum or plasma thyroperoxid ase antibody assay (units/volume)Ordered By: Raeann Cortés on 06-02-2023 TPO Ab Qn 14 [IU]/mL 0-34 [facility] Comment on above: Performed at: [address] [id number] Director: Jose Luis Bartlett PhD, Phone: [phone] Serum or plasma urea nitroge n measurement (mass/volume)Ordered By: Raeann Cortés on 06-02-2023 Urea nitrogen [Mass/Vol] 14 mg/dL 7-18 [facility] Serum proliferating cell nuc lear antigen (PCNA) antibody titer by immunofluorescenceOrdered By: Raeann Cortés on 06-02-2023 PCNA extractable nuclear Ab IF (S) [Titer] [facility] Comment on above: Test not performed Serum speckled nuclear antib gayathri pattern titerOrdered By: Raeann Cortés on 06-02-2023 Speckled nuclear Ab pattern (S) [Titer] [facility] Comment on above: Test not performed Thin prep Papanicolaou smear with manual screeningOrdered By: Raeann Cortés on 06-02-2023 Thin prep Papanicolaou smear with manual screening 20 U/L 15-37 [place] Thin prep Papanicolaou smear with manual screening 5 5-15 [place] Thin prep Papanicolaou smear with manual screening [facility] Comment on above: Test not performed TIGRE [facility]CREENING [facility] 09[facility] Anion gap [Moles/Vol] 6 mmol/L Normal 5-16 [facility] Comment on above: Order Comment: Todd Regalado Performed By: #### L [id number], [id number] #### [facility] [address] [place] [address] Calcium [Mass/Vol] 9.2 mg/dL Normal 8.5-10.5 [facility] Comment on above: Order Comment: Todd gomez: M Result Comment: NOTE NEW NORMAL RANGE DUE TO REAGENT CHANGE Performed By: #### L [id number], [id number] #### [facility] [place] [address] Chloride [Moles/Vol] 103 mmol/L Normal 98-107 [facility] Comment on above: Order Comment: Campu s: M Performed By: #### L 500.69856, [id number] #### [facility] [address] [place] [address] CO2 [Moles/Vol] 28.0 mmol/L Normal 21-32 [facility] Comment on above: Order Comment: Campu s: M Performed By: #### L [id number], [id number] #### [facility] [address] [place] [address] Creatinine [Mass/Vol] 0.74 mg/dL Normal 0.510- 0.95 0 [facility] Comment on above: Order Comment: Campu s: M Result Comment: Lillian ents receiving either N-Acetylcysteine (NAC) or Metamizole prior to venipuncture, may have falsely depressed results. Performed By: #### L [id number], [id number] #### [facility] [address] [place] [address] Glucose [Mass/Vol] 95 mg/dL Normal 70-100 [facility] Comment on above: Order Comment: Campu s: M Result Comment: 70-1 00- Normal Fasting; 100-125 Impaired Fasting; greater than 126 on more than one result- Diabetes. ADA guidelines. Results may be falsely elevated after the administration of Sulfapyridine. Results may be falsely depressed after the administration of Sulfasalazine. Performed By: #### L 500.15507, L500.33199 #### [facility] [address] [place] [address] Potassium [Moles/Vol] 3.4 mmol/L Low 3.5-5.1 [facility] Comment on above: Order Comment: Campu s: M Performed By: #### L 500.41612, L500.60450 #### [facility] [address] [place] [address] Sodium [Moles/Vol] 137 mmol/L Normal 136-145 [facility] Comment on above: Order Comment: Campu s: M Performed By: #### L 500.90914, L500.50507 #### [facility] [address] [place] [address] Urea nitrogen [Mass/Vol] 13 mg/dL Normal 7-26 [facility] Comment on above: Order Comment: Campu s: M Performed By: #### L 500.75040, L500.85428 #### [facility] [address] [place] [address] Urea nitrogen/Creatinine [Mass ratio] 18 mg/mg Normal 15-24 [facility] Comment on above: Order Comment: Campu s: M Performed By: #### L 500.44280, L500.17673 #### [facility] [address] [place] [address] CBC W/DIFFon 07-09-2021 BASO ABS 0.00 K/CU MM Normal 0-0.2 [facility] Comment on above: Order Comment: Campu s: M Performed By: #### L 200.42581 #### [facility] [address] [place] [address] Basophils/100 WBC (Bld) 0.3 % Normal 0-2 M [facility] Comment on above: Order Comment: Campu s: M Performed By: #### L .96270 #### [facility] [address] [place] [address] EOS ABS 0.00 K/CU MM Normal 0-0.5 [facility] Comment on above: Order Comment: Campu s: M Performed By: #### L 200.51025 #### [facility] [address] [place] [address] Eosinophils/100 WBC (Bld) 0.0 % Normal 0-5 [facility] Comment on above: Order Comment: Campu s: M Performed By: #### L 200.49720 #### [facility] [address] [place] [address] Erythrocyte distribution width (RBC) [Ratio] 12.4 % Normal 11-14.5 [facility] Comment on above: Order Comment: Campu s: M Performed By: #### L 200.67146 #### [facility] [address] [place] [address] Hematocrit (Bld) [Volume fraction] 37.3 % Normal 35.0-47.0 [facility] Comment on above: Order Comment: Campu s: M Performed By: #### L 200.35448 #### [facility] [address] [place] [address] Hemoglobin (Bld) [Mass/Vol] 12.8 g/dL Normal 11.5-15. 5 [facility] Comment on above: Order Comment: Campu s: M Performed By: #### L 200.37918 #### [facility] [address] [place] [address] IMMATR GRAN ABS 0.00 K/CU MM Normal Less than 2 [facility] Comment on above: Order Comment: Campu s: M Performed By: #### L 200.47019 #### [facility] [address] [place] [address] IMMATURE GRAN % 0.0 % Normal Less than 2 [facility] Comment on above: Order Comment: Campu s: M Performed By: #### L 200.05494 #### [facility] [address] [place] [address] LYMPH ABS 0.80 K/CU MM Low 0.9-4.4 [facility] Comment on above: Order Comment: Campu s: M Performed By: #### L 200.11445 #### [facility] [address] [place] [address] Lymphocytes/100 WBC (Bld) 28.0 % Normal 20-40 [facility] Comment on above: Order Comment: Campu s: M Performed By: #### L 200.16996 #### [facility] [address] [place] [address] MCHC (RBC) [Mass/Vol] 34.3 g/dL Normal 32.0-36.0 [facility] Comment on above: Order Comment: Campu s: M Performed By: #### L .00456 #### [facility] [address] [place] [address] MCV (RBC) [Entitic vol] 88.6 fL Normal 80.0-99.0 [facility] Comment on above: Order Comment: Campu s: M Performed By: #### L 200.00466 #### [facility] [address] [place] [address] MONO ABS 0.20 K/CU MM Normal 0.1-1.1 [facility] Comment on above: Order Comment: Campu s: M Performed By: #### L 200.22231 #### [facility] [address] [place] [address] Monocytes/100 WBC (Bld) 6.5 % Normal 2-10 M [facility] Comment on above: Order Comment: Campu s: M Performed By: #### L 200.99963 #### [facility] [address] [place] [address] NEUTROPHIL ABS 1.90 K/CU MM Low 2.0-8.3 [facility] Comment on above: Order Comment: Campu s: M Performed By: #### L 200.78355 #### [facility] [place] [id number] Neutrophils/100 WBC (Bld) 65.2 % Normal 45-75 [facility] Comment on above: Order Comment: Campu s: M Performed By: #### L 200.68753 #### [facility] [address] [place] [address] Nucleated RBC/100 WBC (Bld) [Ratio] 0.0 % Normal Less than 1 [facility] Comment on above: Order Comment: Campu s: M Performed By: #### L 200.45729 #### [facility] [address] [place] [address] Platelet mean volume (Bld) [Entitic vol] 10.7 fL Normal 9.4-12.4 [facility] Comment on above: Order Comment: Campu s: M Performed By: #### L 200.56692 #### [facility] [address] [place] [address] PLT 176 K/CU MM Normal 150-450 [facility] Comment on above: Order Comment: Campu s: M Performed By: #### L 200.77162 #### [facility] [address] [place] [address] RBC 4.21 M/CU MM Normal 3.90-5.30 [facility] Comment on above: Order Comment: Campu s: M Performed By: #### L 200.73984 #### [facility] [address] [place], [place] [address] WBC 2.9 K/CUMM Low 4.5-11.0 [facility] Comment on above: Order Comment: Campu s: M Performed By: #### L 200.52854 #### [facility] [address] [place], [place] [address] CT HEAD/BRAIN W/O CONon 11-0 CT HEAD/BRAIN W/O CON CT HEAD/BRAIN W/O CON CLINICAL HISTORY: head injury, pos LOC TECHNIQUE: Serial axial images without IV contrast were obtained from the vertex to the foramen magnum. MQ: [id number] CT Radiation dose: Integrated Dose-Length Product (DLP) for this visit = 653 mGy*cm CT Dose Reduction Employed: Iterative reconstruction COMPARISON: None. RESULT: No acute intracranial hemorrhage. No mass effect. No midline shift. Ventricles and sulci are within normal limits. No acute soft tissue abnormality. No acute osseous abnormality. IMPRESSION: No acute intracranial findings. This report was electronically signed by Meggan Munoz MD 07/09/2021 7:52 PM Reported By: MEGGAN MUNOZ MD Signed By: MEGGAN MUNOZ MD [facility] EKGon 07-09-2021 Electrocardiogram Procedure Date and Time: 07/09/211746 Test Reason : STAT Blood Pressure : / mmHG Vent. Rate : 069 BPM Atrial Rate : 069 BPM P-R Int : 126 ms QRS Dur : 082 ms QT Int : 412 ms P-R-T Axes : 044 069 059 degrees QTc Int : 441 ms Normal sinus rhythm Non-specific ST abnormality Abnormal ECG When compared with ECG of 18-APR-2010 09:43, No significant change was found Confirmed by ALEXSANDER MORENO A. ([id number]) on 07/10/2021 10:17:41 AM Referred By: Krunal Candelaria Confirmed By:Shiloh MORENO M.D.FACC Missael DDandT: 07/09/211746 TDandT: [facility] PATIENT NAME: MARCI GALAN [address] MEDICAL REC #: [id number] [place] [address] ADMIT DATE: DISCHARGE DATE: 07/09/21 ATTENDING PHY: Manuel Donovan MD ELECTROCARDIOGRAM REPORT CLB cc: [facility] PATIENT NAME: MARCI GALAN [address] [facility] [address] MEDICAL REC #: [id number] [place] [address] ADMIT DATE: DISCHARGE DATE: 07/09/21 ATTENDING PHY: Manuel Donovan MD ELECTROCARDIOGRAM REPORT [facility] EMERGENCY PHYSICIAN REPORT This is a pre liminary report only, as the practitioner review and authentication has not occurred. Normal [facility] ER PHYSICIAN ASSESSMENT RECORDS : FlexChartData Event Time: 07/09/2021 18:30 [facility] Status: Signed [facility] Marci Galan [[id number]] Mid-Level Chart (V2b) / 1955 Chart created at 07/09/2021 18:14 by Krunal Candelaria PA-C Chart closed at 07/09/2021 20:06 Entry in Emergency Department at 07/09/2021 17:19, departure at 07/09/2021 20:41 Patient Name: Marci Galan Record Number: [id number] Date: 07/09/2021 18:14 Entered Department at: 07/09/2021 17:19 Patient Seen at: 07/09/2021 17:53 Historian: Patient Chief Complaint:covid+ Tuesday, dizziness and weakness. fall today while in shower, syncopal episode. denies SOB Nursing triage/initial assessment reviewed and confirmed and Initial Vital Signs reviewed. Temperature: 99.1 F (37.3 C). Pulse: 74. Respiratory Rate: 18. Blood-pressure: 129/72. Oxygen Saturation: 100%. History of Present Illness: 66-Year-old female presents emergency department with complaints of dizziness general fatigue diffuse body aches and headache. She states symptoms started on 07/04/2021 with a headache. She states then body aches develop. She is not Covid vaccinated. 2 days ago on 07/07/2021 she did have a positive Covid test. [facility] PATIENT NAME: MARCI GALAN [facility] [address] MEDICAL REC #: [id number] [place] [id number] EMERGENCY DEPARTMENT REPORT EMERGENCY DEPARTMENT PHYSICIAN She states she has been monitoring her at home oxygen with a pulse ox and she has not dropped below 92. She states she has been fatigued diffusely with body aches. No vomiting. No urinary symptoms. She states she has a dry cough. No pain when taking deep breath no leg pain or swelling. She states today she was in the shower was feeling dizzy so she got out of the shower. At that point she felt like she was going to faint hit the back of her head on a wall in her bathroom and put a hole in the wall. Patient states that she did have prodrome of just feeling lightheaded before she had the syncope/presyncope. Following the incident no nausea or vomiting or before the incident. She states she thinks she may have got knocked out but she is unsure after she collected her self she got up. This occurred at 9 AM today. She states due to general body aches dizziness, which she describes as general malaise rather than room spinning dizziness or vision changes, she comes in for evaluation. No chest pain or palpitations. No pain when taking deep breath. No other pertinent HPI. Review of Systems. All other systems reviewed and negative.. Past History, Medications, Allergies, Social History and Family History reviewed in nurses note. Past Medical History: Fibromyalgia, asthma Medications: Reviewed RN Note. Allergies: Reviewed RN Note Sulfa(Hives), Thorazine(Difficulty Breathing) Social History: Reviewed RN Note. Family History: Reviewed RN Note Physical Examination: General: Alert and Well Developed; Responding question appropriately no acute distress HEENT: Eyes: Lids Normal; . Patient has a superficial hemostatic slightly scabbed over abrasion on the crown of the scalp and [facility] PATIENT NAME: MARCI GALAN [address] [address] MEDICAL REC #: [id number] [place] [id number] EMERGENCY DEPARTMENT REPORT EMERGENCY DEPARTMENT PHYSICIAN measures about 1.5 cm x 0.5 cm. It is more of a skin tear/abrasion. No surrounding hematoma. No hemotympanum. Otherwise head and face atraumatic. Dry mucous membranes. Neck: No Lymphadenopathy, No Meningismus and Supple; Sitting up in bed, full range of motion, no midline tenderness Respiratory: No Resp Distress, Chest non-tender and Normal Breath Sounds; Good inspiratory effort no pleuritic pain no wheeze rhonchi rales Cardio-Vascular: No rub and RRR Abdomen: Non-tender and Soft Back: No CVA tenderness and Non-tender Extremity: No Calf Tenderness, No edema and Normal Equal pulses Neurological: Alert, Oriented X3, No Dysmetria, Normal Sensation, No Gross Weakness, Cranial Nerves 2-12 Normal, Speech Normal and 5/5 UE/LE Strength; Able to sit up in bed easily without assistance Skin: No Petechiae and Warm Psychological: Mood/Affect Normal and Normal Memory/Judgment CBC W/DIFF, information as of 07/09/2021, 6:21 pm 88.6 / 12.8 / 2.9* andgt;------andlt; 176 / 37.3 / N:65.2 BASO ABS: 0.00 K/Cu Mm; BASOPHIL %: 0.3 %; EOS ABS: 0.00 K/Cu Mm; EOSINOPHIL %: 0.0 %; IMMATR GRAN ABS: 0.00 K/Cu Mm; IMMATURE GRAN %: 0.0 %; LYMPH %: 28.0 %; LYMPH ABS: 0.80 K/Cu Mm; MCHC: 34.3 Gm/Dl; MONO ABS: 0.20 K/Cu Mm; MONOCYTE %: 6.5 %; MPV: 10.7; NEUTROPHIL ABS: 1.90 K/Cu Mm; NRBC: 0.0 %; RBC: 4 (more content not included)... Normal [facility] GFR ESTon 07-09-2021 IF AMER Greater than 60 Normal [facility] Comment on above: Order Comment: Campu s: M Performed By: #### L 500.59390, L500.40324 #### [facility] [address] [place], [place] [address] IF non-AFR AMER Greater than 60 Normal [facility] Comment on above: Order Comment: Campu s: M Performed By: #### L 500.14627, L500.76225 #### [facility] [address] [place] [address] [id number] 07-09-2021 SARS-CoV-2 (COVID-19) RNA ALLAN+probe Ql (Unsp spec) Positive Invalid Interpretation Code Negative [facility] Comment on above: Order Comment: Campu s: M Result Comment: CRIT ICAL VALUE(S) VERIFIED AND CALLED TO AND READ BACK BY Shiloh VENCES RN/ED AT 1927 07/09/21 BY CAROLYNN GUSMAN: [facility] Negative results do not preclude SARS-CoV-2 infection and should not be used as the sole basis for treatment or other patient management decisions. Negative results must be combined with clinical observation, patient history, and epidemiological information. This test was performed by PCR. Performed By: #### L 770.54306 #### [facility] [address] [place], [place] [address] TROPONIN Ion 07-09-2021 TROPONIN I 3.7 pg/mL Normal 0-34 [facility] Comment on above: Order Comment: Campu s: M Result Comment: NOTE NEW NORMAL RANGE DUE TO REAGENT CHANGE This assay uses different antibodies than our current assay, and assays, even by the same internal audit director may recognize different regions of the antibody and cannot be used interchangeably. Expect results of this assay to run higher than the previous assay. Performed By: #### L 550.73656 #### [facility] [address] [phone] CORONAVIRUS PCR - [facility] 07-07-2021 SARS-CoV-2 (COVID-19) RNA ALLAN+probe Ql (Unsp spec) Positive Critically abnormal NORMAL: NEGATIVE [facility] Comment on above: Result Comment: { CA LLED TO INFECTION CONTROL { READ BACK BY Performed By: #### 2 [id number] #### [facility],[address] [place] [address] SEND TO IC? YES Normal [facility] Comment on above: Result Comment: RESU LTS FAXED TO INFECTION CONTROL. SARS-CoV-2 THIS TEST IS BEING USED UNDER THE FDA EUA PROCEDURE. THIS ASSAY HAS BEEN VALIDATED IN THE [facility] FOR USE WITH NASOPHARYNGEAL SPECIMENS IN [facility]. [facility] TEST RESULTS SHOULD ALWAYS BE CONSIDERED IN THE CONTEXT OF CLINICAL OBSERVATIONS AND EPIDEMIOLOGICAL DATA IN MAKING FINAL DIAGNOSIS AND PATIENT MANAGEMENT DECISIONS. PATIENT MANAGEMENT SHOULD FOLLOW CURRENT CDC GUIDELINES. A POSITIVE TEST RESULT FOR COVID-19 INDICATES THAT RNA FROM SARS-CoV-2 WAS DETECTED, AND THE PATIENT IS INFECTED WITH THE VIRUS AND PRESUMED TO BE CONTAGIOUS. A NEGATIVE TEST RESULT FOR THIS TEST MEANS THAT SARS-CoV-2 RNA WAS NOT PRESENT IN THE SPECIMEN ABOVE THE LIMIT OF DETECTION. HOWEVER, A NEGATVIE RESULT DOES NOT RULE OUT COVID-19 AND SHOULD NOT BE USED THE SOLE BASIS FOR TREATMENT OR PATIENT MANAGEMENT DECISIONS. A NEGATIVE RESULT DOES NOT EXCLUDE THE POSSIBILITY OF COVID-19. WHEN DIAGNOSTIC TESTING IS NEGATIVE, THE POSSIBLILTY OF A FALSE NEGATIVE RESULT SHOULD BE CONSIDERED IN THE CONTEXT OF A PATIENT'S RECENT EXPOSURES AND THE PRESENCE OF CLINICAL SIGNS AND SYMPTOMS CONSISTENT WITH COVID-19. THE POSSIBILITY OF A FALSE NEGATIVE RESULT SHOULD ESPECIALLY BE CONSIDERED IF THE PATIENT'S RECENT EXPOSURES OR CLINICAL PRESENTATION INDICATE THAT COVID-19 IS LIKELY, AND DIAGNOSTIC TESTS FOR OTHER CAUSES OF ILLNESS (e.g., OTHER RESPIRATORY ILLNESS) ARE NEGATIVE. IF COVID-19 IS STILL SUSPECTED BASED ON EXPOSURE HISTORY TOGETHER WITH OTHER CLINICAL FINDINGS, RE-TESTED SHOULD BE CONSIDERED BY HEALTHCARE PROVIDERS IN CONSULTATION WITH PUBLIC HEALTH AUTHORITIES. Performed By: #### 2 [id number] #### [facility],[address] [place], [place] [address] [place] ARTHR/ASP/INJ MAJOR JT/BU RSA RT WO USOrdered By: Austin Ruby on 09-26-2019 Patient Name: MARCI GALAN ---Fluoroscopy--- Exam Date/Time 09/26/2019 09:54:25 EST Exam RF Arthrogram Aspir Inj Ruslan Jt Right Ordering Physician MD PHILIP, AUSTIN SORTO Accession Number [id number] [facility] Codes 90186 (), 31966 (RF FLUORO GUIDANCE NEEDLE PLACEMENT), 92392 (RF INJ HIP ARTHRO W/O ANESTHESIA RT) Reason For Exam other specified joint disorders of right hip Report Examination: Fluoroscopic guided right hip arthrogram and diagnostic gadolinium injection Clinical Indication: Right hip pain Comparison: None Findings: Informed written consent was obtained from the patient after the risks, benefits, and alternatives to arthrography and therapeutic injection were adequately explained and all questions were answered. The right hip was prepared and draped in usual sterile fashion utilizing Chloraprep antisepsis. 0.5 percent preservative-free Ropivacaine was used for local anesthesia. A 20-gauge spinal needle was then introduced into the right hip joint space utilizing fluoroscopy. Patient was then given injection of 16 mL of a mixture containing saline, 6 mL Isovue-300, 5 mL of Ropivacaine and 1 to 200 dilute Multihance gadolinium contrast. Patient had no immediate postprocedural complications. Patient described no postprocedural pain relief. Total fluoroscopic time 0.2 minutes. Two stored fluoroscopic images. Impression: Status post right hip arthrogram and intra-articular gadolinium injection. Report Dictated on --- Final --- Dictated: 09/26/2019 11:30 am Dictating Physician: MD ALEXANDER NEIL Signed Date and Time: 09/26/2019 11:30 am Signed by: MD ALEXANDER NEIL Transcribed Date and Time: 09/26/2019 11:30 [facility] Work Phone: [facility], [facility] Incoming Radiology Results From [facility] - 09/26/2019 11:31 AM EST Patient Name: MARCI GALAN ---Fluoroscopy--- Exam Date/Time 09/26/2019 09:54:25 EST Exam RF Arthrogram Aspir Inj Ruslan Jt Right Ordering Physician MD RUBY JOVAN RISTE Accession Number [id number] [facility]4 Codes 17770 (), 37962 (RF FLUORO GUIDANCE NEEDLE PLACEMENT), 51086 (RF INJ HIP ARTHRO W/O ANESTHESIA RT) Reason For Exam other specified joint disorders of right hip Report Examination: Fluoroscopic guided right hip arthrogram and diagnostic gadolinium injection Clinical Indication: Right hip pain Comparison: None Findings: Informed written consent was obtained from the patient after the risks, benefits, and alternatives to arthrography and therapeutic injection were adequately explained and all questions were answered. The right hip was prepared and draped in usual sterile fashion utilizing Chloraprep antisepsis. 0.5 percent preservative-free Ropivacaine was used for local anesthesia. A 20-gauge spinal needle was then introduced into the right hip joint space utilizing fluoroscopy. Patient was then given injection of 16 mL of a mixture containing saline, 6 mL Isovue-300, 5 mL of Ropivacaine and 1 to 200 dilute Multihance gadolinium contrast. Patient had no immediate postprocedural complications. Patient described no postprocedural pain relief. Total fluoroscopic time 0.2 minutes. Two stored fluoroscopic images. Impression: Status post right hip arthrogram and intra-articular gadolinium injection. Report Dictated on --- Final --- Dictated: 09/26/2019 11:30 am Dictating Physician: MD ALEXANDER NEIL Signed Date and Time: 09/26/2019 11:30 am Signed by: MD ALEXANDER NEIL Transcribed Date and Time: 09/26/2019 11:30 [facility] Work Phone: MRI Low Ext Joint w/ Contras t Righton 09-26-2019 MRI Low Ext Joint w/ Contrast Right Patient Name: MARCI GALAN MRI Exam Date/Time 09/26/2019 10:31:46 EST Exam MRI Low Ext Joint w/ Contrast Right Ordering Physician MD RUBY JOVAN RISTE Accession Number [id number] [facility]4 Codes 01813 () Reason For Exam other specified joint disorders right hip Report Exam Type: MRI Low Ext Joint w/ Contrast Right Exam Date and Time: 09/26/2019 10:31 AM EST Demographics: Gender: Female; Age: 64 years Indication: Right hip pain; Comparison: None available TECHNIQUE: MRI of the right hip was performed in three planes (axial, sagittal, and coronal) following the intra-articular instillation of gadolinium-based contrast solution. FINDINGS: RIGHT HIP JOINT: Contrast adequately distends the joint space. Labrum: Small undersurface tear versus paralabral recess of the anterosuperior labrum from 1:00 to 2:00. Cartilage: Partial-thickness cartilage loss of the posterior acetabulum and reciprocal femoral head with subchondral cystic change. Chondrosis with subchondral edema extends to the posterior superior acetabulum. Femoroacetabular impingement (AALIYAH): No cam- or pincer-type femoroacetabular impingement morphology. Normal alpha angle measuring 47 degrees. Mild cephalad acetabular retroversion. No hip dysplasia. Ligamentum teres: Intact. OSSEOUS STRUCTURES: Alignment is anatomic. No acute fracture; no stress fracture. No avascular necrosis in the right femoral head. No suspicious osseous lesions. TENDONS and BURSAE: Rectus femoris tendon origin: Intact without tendinosis or tear. Iliopsoas tendon: Intact without tendinosis or tear. Hamstring tendon origins: Moderate right hamstring origin tendinosis with low-grade undersurface tearing. Gluteal tendons: Mild right gluteus minimus insertional tendinosis without tear. Bursae: Trace right greater trochanteric bursitis. No iliopsoas bursitis. MUSCLES: No muscle atrophy or muscle strains. OTHER: Sciatic nerve: Normal in size and signal. Preserved perineural fat planes. Ischiofemoral fossa: Borderline right ischiofemoral space narrowing . Edema is present within the right quadratus femoris. Pelvic viscera (only partially imaged): Unremarkable. IMPRESSION: 1. Small undersurface tear versus paralabral recess of the anterosuperior labrum from 1:00 to 2:00. 2. Mild right hip osteoarthritis. 3. Moderate right hamstring origin tendinosis with low-grade undersurface tearing. 4. Right ischiofemoral impingement. 5. Mild right gluteus minimus insertional tendinosis without tear. Report Dictated on Final Dictated: 09/26/2019 11:21 am Dictating Physician: MD ALEXANDER NEIL Signed Date and Time: 09/26/2019 11:30 am Signed by: MD ALEXANDER NEIL Transcribed Date and Time: 09/26/2019 11:21 [facility] MRI Lower Extremity Right W JT W ContrastOrdered By: Austin Ruby on 09-26-2019 Patient Name: MARCI GALAN ---MRI--- Exam Date/Time 09/26/2019 10:31:46 EST Exam MRI Low Ext Joint w/ Contrast Right Ordering Physician MD RUBY JOVAN RISTE Accession Number [id number] CPT4 Codes 88160 () Reason For Exam other specified joint disorders right hip Report Exam Type: MRI Low Ext Joint w/ Contrast Right Exam Date and Time: 09/26/2019 10:31 AM EST Demographics: Gender: Female; Age: 64 years Indication: Right hip pain; Comparison: None available TECHNIQUE: MRI of the right hip was performed in three planes (axial, sagittal, and coronal) following the intra-articular instillation of gadolinium-based contrast solution. FINDINGS: RIGHT HIP JOINT: Contrast adequately distends the joint space. Labrum: Small undersurface tear versus paralabral recess of the anterosuperior labrum from 1:00 to 2:00. Cartilage: Partial-thickness cartilage loss of the posterior acetabulum and reciprocal femoral head with subchondral cystic change. Chondrosis with subchondral edema extends to the posterior superior acetabulum. Femoroacetabular impingement (AALIYAH): No cam- or pincer-type femoroacetabular impingement morphology. Normal alpha angle measuring 47 degrees. Mild cephalad acetabular retroversion. No hip dysplasia. Ligamentum teres: Intact. OSSEOUS STRUCTURES: Alignment is anatomic. No acute fracture; no stress fracture. No avascular necrosis in the right femoral head. No suspicious osseous lesions. TENDONS and BURSAE: Rectus femoris tendon origin: Intact without tendinosis or tear. Iliopsoas tendon: Intact without tendinosis or tear. Hamstring tendon origins: Moderate right hamstring origin tendinosis with low-grade undersurface tearing. Gluteal tendons: Mild right gluteus minimus insertional tendinosis without tear. Bursae: Trace right greater trochanteric bursitis. No iliopsoas bursitis. MUSCLES: No muscle atrophy or muscle strains. OTHER: Sciatic nerve: Normal in size and signal. Preserved perineural fat planes. Ischiofemoral fossa: Borderline right ischiofemoral space narrowing . Edema is present within the right quadratus femoris. Pelvic viscera (only partially imaged): Unremarkable. IMPRESSION: 1. Small undersurface tear versus paralabral recess of the anterosuperior labrum from 1:00 to 2:00. 2. Mild right hip osteoarthritis. 3. Moderate right hamstring origin tendinosis with low-grade undersurface tearing. 4. Right ischiofemoral impingement. 5. Mild right gluteus minimus insertional tendinosis without tear. Report Dictated on --- Final --- Dictated: 09/26/2019 11:21 am Dictating Physician: MD ALEXANDER NEIL Signed Date and Time: 09/26/2019 11:30 am Signed by: MD ALEXANDER NEIL Transcribed Date and Time: 09/26/2019 11:21 [facility] Work Phone: [facility] Incoming Radiology Results From [facility] - 09/26/2019 11:31 AM EST Patient Name: MARCI GALAN ---MRI--- Exam Date/Time 09/26/2019 10:31:46 EST Exam MRI Low Ext Joint w/ Contrast Right Ordering Physician MD PHILIP, AUSTIN SORTO Accession Number [id number] CPT4 Codes 61218 () Reason For Exam other specified joint disorders right hip Report Exam Type: MRI Low Ext Joint w/ Contrast Right Exam Date and Time: 09/26/2019 10:31 AM EST Demographics: Gender: Female; Age: 64 years Indication: Right hip pain; Comparison: None available TECHNIQUE: MRI of the right hip was performed in three planes (axial, sagittal, and coronal) following the intra-articular instillation of gadolinium-based contrast solution. FINDINGS: RIGHT HIP JOINT: Contrast adequately distends the joint space. Labrum: Small undersurface tear versus paralabral recess of the anterosuperior labrum from 1:00 to 2:00. Cartilage: Partial-thickness cartilage loss of the posterior acetabulum and reciprocal femoral head with subchondral cystic change. Chondrosis with subchondral edema extends to the posterior superior acetabulum. Femoroacetabular impingement (AALIYAH): No cam- or pincer-type femoroacetabular impingement morphology. Normal alpha angle measuring 47 degrees. Mild cephalad acetabular retroversion. No hip dysplasia. Ligamentum teres: Intact. OSSEOUS STRUCTURES: Alignment is anatomic. No acute fracture; no stress fracture. No avascular necrosis in the right femoral head. No suspicious osseous lesions. TENDONS and BURSAE: Rectus femoris tendon origin: Intact without tendinosis or tear. Iliopsoas tendon: Intact without tendinosis or tear. Hamstring tendon origins: Moderate right hamstring origin tendinosis with low-grade undersurface tearing. Gluteal tendons: Mild right gluteus minimus insertional tendinosis without tear. Bursae: Trace right greater trochanteric bursitis. No iliopsoas bursitis. MUSCLES: No muscle atrophy or muscle strains. OTHER: Sciatic nerve: Normal in size and signal. Preserved perineural fat planes. Ischiofemoral fossa: Borderline right ischiofemoral space narrowing . Edema is present within the right quadratus femoris. Pelvic viscera (only partially imaged): Unremarkable. IMPRESSION: 1. Small undersurface tear versus paralabral recess of the anterosuperior labrum from 1:00 to 2:00. 2. Mild right hip osteoarthritis. 3. Moderate right hamstring origin tendinosis with low-grade undersurface tearing. 4. Right ischiofemoral impingement. 5. Mild right gluteus minimus insertional tendinosis without tear. Report Dictated on --- Final --- Dictated: 09/26/2019 11:21 am Dictating Physician: MD ALEXANDER NEIL Signed Date and Time: 09/26/2019 11:30 am Signed by: MD ALEXANDER NEIL Transcribed Date and Time: 09/26/2019 11:21 [facility] Work Phone: RF Arthrogram Aspir Inj Ruslan Jt Righton 09-26-2019 RF Arthrogram Aspir Inj Ruslan Jt Right Patient Name: MARCI GALAN Fluoroscopy Exam Date/Time 09/26/2019 09:54:25 EST Exam RF Arthrogram Aspir Inj Rusaln Jt Right Ordering Physician MD PHILIP, AUSTIN SORTO Accession Number [id number] [facility] Codes 25338 (), 14661 (RF FLUORO GUIDANCE NEEDLE PLACEMENT), 01222 (RF INJ HIP ARTHRO W/O ANESTHESIA RT) Reason For Exam other specified joint disorders of right hip Report Examination: Fluoroscopic guided right hip arthrogram and diagnostic gadolinium injection Clinical Indication: Right hip pain Comparison: None Findings: Informed written consent was obtained from the patient after the risks, benefits, and alternatives to arthrography and therapeutic injection were adequately explained and all questions were answered. The right hip was prepared and draped in usual sterile fashion utilizing Chloraprep antisepsis. 0.5 percent preservative-free Ropivacaine was used for local anesthesia. A 20-gauge spinal needle was then introduced into the right hip joint space utilizing fluoroscopy. Patient was then given injection of 16 mL of a mixture containing saline, 6 mL Isovue-300, 5 mL of Ropivacaine and 1 to 200 dilute Multihance gadolinium contrast. Patient had no immediate postprocedural complications. Patient described no postprocedural pain relief. Total fluoroscopic time 0.2 minutes. Two stored fluoroscopic images. Impression: Status post right hip arthrogram and intra-articular gadolinium injection. Report Dictated on Final Dictated: 09/26/2019 11:30 am Dictating Physician: MD ALEXANDER NEIL Signed Date and Time: 09/26/2019 11:30 am Signed by: MD ALEXANDER NEIL Transcribed Date and Time: 09/26/2019 11:30 Normal [facility] Otheron 12-07-2011 CONVERTED CLINICAL HISTORY OPERATIVE PRO CEDURE: Excision mass, left breast CLINICAL INFORMATION: Left breast mass [facility] CONVERTED ELECTRONIC SIGNATURE YARELI ENGLISH M.D., PATHOLOGIST (Electronic signature on file) Final Signed Out: 12/07/2011 15:52 [facility] CONVERTED FINAL DIAGNOSIS FINAL DIAGNOSI S: LEFT BREAST, EXCISIONAL BIOPSY - ORGANIZING FAT NECROSIS. SPECIMEN: BREAST TISSUE LEFT [facility] CONVERTED GROSS DESCRIPTION GROSS DESCRI PTION: Left breast mass - tissue in formalin Container labeled left breast mass. Received is a disrupted portion of lobulated, dense, pink-white tissue weighing 2 gm and measuring 2 x 1 x 1 cm. On cut section, the tissue has the appearance of fat necrosis. The specimen is sectioned and totally submitted in two cassettes. SMS:[facility] MICROSCOPIC DESCRIPTION: Slides reviewed. PSB/gpl [facility] CONVERTED ORDERING PROVIDER Ordering Pro vider: CLAIRE DRAKE [facility] Otheron 11-06-2010 CONVERTED CLINICAL HISTORY OPERATIVE PRO CEDURE: Roland breast reduction CLINICAL INFORMATION: Roland breast hyperplasia [facility] CONVERTED FINAL DIAGNOSIS FINAL DIAGNOSI S: A) RIGHT BREAST, REDUCTION - FIBROCYSTIC CHANGE. NEGATIVE FOR MALIGNANCY. B) LEFT BREAST, REDUCTION - FIBROCYSTIC CHANGE. NEGATIVE FOR MALIGNANCY. COMMENT: Fibrocystic change includes fibrosis, duct dilatation, and apocrine metaplasia. There is no evidence of malignancy. SPECIMEN: (A) BREAST TISSUE RIGHT (B) BREAST TISSUE LEFT [facility] CONVERTED GROSS DESCRIPTION GROSS DESCRI PTION: Rt breast tissue A) Specimen A is labeled right breast tissue. Received are portions of kaufman skin with attached breast tissue measuring 16 x 15 x 6 cm. The skin surface demonstrates focal striae. Sections through the breast tissue reveal mainly lobulated, yellow, normal-appearing adipose tissue with streaks of pink-white fibrous tissue. No discrete or suspicious lesions are identified. A sales representative printing paper sample is submitted in three cassettes labeled A. Lt breast tissue B) Specimen B is labeled left breast tissue. Received are portions of kaufman skin with attached breast tissue measuring 18 x 16 x 7 cm in aggregate. The skin surface demonstrates focal striae. Sections through the breast tissue reveal mainly lobulated, yellow, normal-appearing adipose tissue with streaks of pink-white fibrous tissue. No discrete or suspicious lesions are identified. A sales representative printing paper sample is submitted in three cassettes labeled B. SMS/lrs MICROSCOPIC DESCRIPTION: Slides reviewed. SDS/gpl [facility] CONVERTED ORDERING PROVIDER Ordering Pro vider: CLAIRE DRAKE [facility] Thyroidon 11-06-2010 TSH June OSORIO M.D., PATHOLOGIST (Electronic signature on file) Final Signed Out: 11/06/2010 16:23 [facility] BLADDER SCAN [facility] Vital Signs Date Time Vital Sign Value Performing Clinician Facility 03-26-2025 13:36-0400 Body height 167.6 cm Linda Carter APRN.ANIVAL Work Phone: [facility] 03-26-2025 13:36-0400 Body mass index (BMI) [Ratio] 23.08 kg/m2 Linda Carter APRN.AUDIO PRODUCTION MANAGER Work Phone: [facility] 03-26-2025 13:36-0400 Body weight 64.86 kg Linda Carter APRN.AUDIO PRODUCTION MANAGER Work Phone: [facility] 03-26-2025 13:36-0400 Diastolic blood pressure 88 mm[Hg] Linda Carter APRN.AUDIO PRODUCTION MANAGER Work Phone: [facility] 03-26-2025 13:36-0400 Heart rate 73 /min Linda Carter APRN.AUDIO PRODUCTION MANAGER Work Phone: [facility] 03-26-2025 13:36-0400 SaO2% (BldA) [Mass fraction] 98 % Linda Carter APRN.AUDIO PRODUCTION MANAGER Work Phone: [facility] 03-26-2025 13:36-0400 Systolic blood pressure 130 mm[Hg] Linda Carter APRN.AUDIO PRODUCTION MANAGER Work Phone: [facility] 02-06-2025 10:01-0400 Diastolic blood pressure 87 mm[Hg] Cheryl Soto APRN.AUDIO PRODUCTION MANAGER Work Phone: [facility] 02-06-2025 10:01-0400 Systolic blood pressure 135 mm[Hg] Cheryl Soto APRN.AUDIO PRODUCTION MANAGER Work Phone: [facility] 02-06-2025 09:44-0400 Body mass index (BMI) [Ratio] 23.59 kg/m2 Cheryl Soto APRN.AUDIO PRODUCTION MANAGER Work Phone: [facility] 02-06-2025 09:44-0400 Body temperature 97.9 [degF] Cheryl Soto APRN.AUDIO PRODUCTION MANAGER Work Phone: [facility] 02-06-2025 09:44-0400 Body weight 66.3 kg Cheryl Myricko PARACHUTE HARNESS RIGGER.AUDIO PRODUCTION MANAGER Work Phone: [facility] 02-06-2025 09:44-0400 Heart rate 63 /min Cheryl Myricko PARACHUTE HARNESS RIGGER.AUDIO PRODUCTION MANAGER Work Phone: [facility] 02-06-2025 09:44-0400 Respiratory rate 18 /min Cheryl Venkata PARACHUTE HARNESS RIGGER.AUDIO PRODUCTION MANAGER Work Phone: [facility] 02-06-2025 09:44-0400 SaO2% (BldA) [Mass fraction] 97 % Cheryl Myricko PARACHUTE HARNESS RIGGER.AUDIO PRODUCTION MANAGER Work Phone: [facility] 01-30-2025 09:37-0400 Body height 167.64 cm Lucy Roy NP-C Work Phone: [facility] 01-30-2025 09:37-0400 Body mass index (BMI) [Ratio] 24.5 kg/m2 Lucy Roy NP-C Work Phone: [facility] 01-30-2025 09:37-0400 Body weight 69.05 kg Lucy Roy NP-C Work Phone: [facility] 01-30-2025 09:37-0400 Diastolic blood pressure 75 mm[Hg] Lucy Roy NP-C Work Phone: [facility] 01-30-2025 09:37-0400 Heart rate 71 /min Lucy Roy NP-C Work Phone: [facility] 01-30-2025 09:37-0400 Respiratory rate 16 /min Lucy Roy VAMP MAKER-C Work Phone: [facility] 01-30-2025 09:37-0400 SaO2% (BldA) [Mass fraction] 97 % Lucy Roy VAMP MAKER-C Work Phone: [facility] 01-30-2025 09:37-0400 Systolic blood pressure 131 mm[Hg] Lucy Roy VAMP MAKER-C Work Phone: [facility] 10-12-2024 12:50-0500 Diastolic blood pressure 85 mm[Hg] Srinivas Aguilar APRN.AUDIO PRODUCTION MANAGER Work Phone: [facility] 10-12-2024 12:50-0500 Systolic blood pressure 118 mm[Hg] Srinivas Aguilar APRN.AUDIO PRODUCTION MANAGER Work Phone: [facility] 10-12-2024 12:22-0500 Body mass index (BMI) [Ratio] 24.2 kg/m2 Srinivas Aguilar APRN.AUDIO PRODUCTION MANAGER Work Phone: [facility] 10-12-2024 12:22-0500 Body temperature 98.01 [degF] Srinivas Aguilar APRN.AUDIO PRODUCTION MANAGER Work Phone: [facility] 10-12-2024 12:22-0500 Body weight 68 kg Srinivas Aguilar APRN.AUDIO PRODUCTION MANAGER Work Phone: [facility] 10-12-2024 12:22-0500 Heart rate 73 /min Srinivas Aguilar APRN.AUDIO PRODUCTION MANAGER Work Phone: [facility] 10-12-2024 12:22-0500 Respiratory rate 18 /min Srinivas Aguilar APRN.AUDIO PRODUCTION MANAGER Work Phone: [facility] 10-12-2024 12:22-0500 SaO2% (BldA) [Mass fraction] 98 % Srinivas Aguilar APRN.AUDIO PRODUCTION MANAGER Work Phone: [facility] 10-25-2023 11:13-0500 Body height 167.6 cm Guanaco Stokes MD Work Phone: [facility] 10-25-2023 11:13-0500 Body weight 67.13 kg Guanaco Stokes MD Work Phone: [facility] 10-25-2023 11:13-0500 Diastolic blood pressure 89 mm[Hg] Guanaco Stokes MD Work Phone: [facility] 10-25-2023 11:13-0500 Heart rate 73 /min Guanaco Stokes MD Work Phone: [facility] 10-25-2023 11:13-0500 SaO2% (BldA) [Mass fraction] 97 % Guanaco Stokes MD Work Phone: [facility] 10-25-2023 11:13-0500 Systolic blood pressure 130 mm[Hg] Guanaco Stokes MD Work Phone: [facility] Encounters Encounter Date Encounter Type Care Provider Facility Start: 04-05-2025 ambulatory Sunday Maxwell Facility :[facility] Start: 04-03-2025 End: 04-04-2025 Telephone encounter Linda Carter PARACHUTE HARNESS RIGGER.AUDIO PRODUCTION MANAGER Work Phone: [facility] Comment on above: Results (Blood press ures) Start: 04-03-2025 End: 04-03-2025 ambulatory LINDA CARTER Facility:[id number] Start: 03-26-2025 End: 03-26-2025 Patient encounter procedure Linda Carter PARACHUTE HARNESS RIGGER.AUDIO PRODUCTION MANAGER Work Phone: [facility] Comment on above: Primary hypertension (Primary Dx); Epigastric pain; SVT (supraventricular tachycardia) (HCC); Sinus bradycardia Start: 03-26-2025 End: 03-26-2025 ambulatory LINDA CARTER Facility:[id number] Start: 03-25-2025 End: 03-25-2025 Chart abstracting Winter Soto [facility] Comment on above: Abstract Start: 03-19-2025 End: 03-23-2025 ambulatory FLORENCIA BARNES PARACHUTE HARNESS RIGGER-AUDIO PRODUCTION MANAGER Facility:A Start: 02-07-2025 End: 02-08-2025 Telephone encounter Aurelia Saez PARACHUTE HARNESS RIGGER.AUDIO PRODUCTION MANAGER Work Phone: [facility] Start: 02-06-2025 End: 02-06-2025 Patient encounter procedure Cheryl Soto PARACHUTE HARNESS RIGGER.AUDIO PRODUCTION MANAGER Work Phone: [facility] Comment on above: Acute cystitis with hematuria (Primary Dx); Dysuria Start: 02-06-2025 End: 02-06-2025 ambulatory SELF Facility:[id number] Start: 02-04-2025 End: 02-04-2025 ambulatory Florencia Barnes VAMP MAKER-C Work Phone: [facility] Work Phone: Start: 02-04-2025 End: 02-04-2025 Patient encounter procedure Lucy WOLFF -[facility]trasound [facility] Work Phone: Start: 02-04-2025 End: 02-04-2025 ambulatory Florencia Barnes Facility:[facility] Start: 02-01-2025 End: 02-01-2025 ambulatory Florencia Barnes VAMP MAKER-C Work Phone: [facility] Work Phone: Start: 02-01-2025 End: 02-01-2025 Patient encounter procedure Lucy WOLFF -Laboratory Specimen Work Phone: Start: 02-01-2025 End: 02-01-2025 ambulatory Florencia Barnes Facility:[facility] Start: 01-30-2025 End: 01-30-2025 Patient encounter procedure Lucy WOLFF -[facility] Work Phone: Start: 01-30-2025 End: 01-30-2025 ambulatory Lucy Roy [facility] Work Phone: Start: 01-22-2025 ambulatory FLORENCIA BARNES Facilit y:[phone] Start: 01-22-2025 End: 01-22-2025 ambulatory MEGGAN PETITANETTE Facility:[id number] Start: 01-21-2025 End: 01-22-2025 ambulatory FLORENCIA BARNES Facility:[id number] Start: 01-18-2025 ambulatory Jackelin Jean Facility: [facility] Start: 10-12-2024 End: 10-12-2024 ambulatory SELF Facility:[id number] Start: 10-12-2024 End: 10-12-2024 Patient encounter procedure Srinivas Aguilar APRN.AUDIO PRODUCTION MANAGER Work Phone: [facility] Comment on above: Upper respiratory tr act infection, unspecified type (Primary Dx) Start: 10-05-2024 ambulatory FLORENCIA Alonzo y:[phone] Start: 10-05-2024 End: 10-05-2024 Subsequent hospital visit by physician Screen/Diagnostic [facility] Comment on above: Encounter for screen ing mammogram for malignant neoplasm of breast [Z12.31] Start: 07-31-2024 End: 08-04-2024 ambulatory FLORENCIA BARNES PARACHUTE HARNESS RIGGER-AUDIO PRODUCTION MANAGER Facility:A Start: 07-31-2024 End: 08-04-2024 Encounter for general adult medical examination without abnormal findings FLORENCIA BARNES PARACHUTE HARNESS RIGGER-AUDIO PRODUCTION MANAGER Facility:A Start: 10-25-2023 End: 10-25-2023 Patient encounter procedure Guanaco Stokes MD Work Phone: Urology Comment on above: Microscopic hematuri a [R31.29] (Primary Dx) Start: 09-14-2023 End: 09-19-2023 ambulatory FLORENCIA BARNES PARACHUTE HARNESS RIGGER-AUDIO PRODUCTION MANAGER Facility:A Start: 08-31-2023 End: 09-05-2023 ambulatory FLORENCIA BARNES PARACHUTE HARNESS RIGGER-AUDIO PRODUCTION MANAGER Facility:A Start: 07-26-2023 End: 07-31-2023 ambulatory FLORECNIA BARNES PARACHUTE HARNESS RIGGER-AUDIO PRODUCTION MANAGER Facility:A Start: 07-26-2023 End: 07-31-2023 Encounter for general adult medical examination without abnormal findings FLORENCIA BARNES PARACHUTE HARNESS RIGGER-AUDIO PRODUCTION MANAGER Facility:A Start: 06-02-2023 End: 06-02-2023 ambulatory [facility] Work Phone: Start: 06-02-2023 End: 06-02-2023 Patient encounter procedure [facility] Work Phone: Start: 09-21-2022 End: 09-21-2022 Subsequent hospital visit by physician Screen/Diagnostic [facility] Comment on above: Asymptomatic [place] [Z78.0] Start: 07-07-2021 End: 07-07-[address] LUCILA VILLANUEVA [facility] Start: 10-19-2020 Patient encounter procedure Juan Jose Jose Alejandro PARACHUTE HARNESS RIGGER.AUDIO PRODUCTION MANAGER Work Phone: [facility] Start: 10-19-2020 Progress Note Juan Jose Blount APR N.AUDIO PRODUCTION MANAGER Work Phone: [facility] Start: 09-26-2019 End: 09-26-2019 Subsequent hospital visit by physician Austin Ruby Work Phone: [facility] MRI Comment on above: Arrived Start: 12-03-2011 End: 12-03-2011 Patient encounter procedure Claire Drake Work Phone: [facility] Start: 12-03-2011 Results Only Claire Paz er Work Phone: [facility] Start: 11-04-2010 End: 11-04-2010 Patient encounter procedure Claire Drake Work Phone: [facility] Start: 11-04-2010 Results Only Claire Paz er Work Phone: [facility] Procedures Date Procedure Procedure Detail Performing Clinician Start: 02-06-2025 Urnls dip stick/tabl et rgnt auto w/o microscopy Cheryl Soto APRN.AUDIO PRODUCTION MANAGER Work Phone: Start: 02-04-2025 Ultrasonography of abdomen Florencia Cameron VAMP MAKER-C Work Phone: Start: 01-22-2025 Lipid 1996 panel - S queenie or Plasma Cheryl Soto APRN.AUDIO PRODUCTION MANAGER Work Phone: Start: 10-05-2024 Screening digital br east tomosynthesis bi Florencia Cesarkrishan AUDIO PRODUCTION MANAGER Work Phone: Start: 10-25-2023 BLADDER SCAN Guanaco Stokes MD Work Phone: Start: 10-25-2023 Urnls dip stick/tabl et rgnt auto w/o microscopy Guanaco Stokes MD Work Phone: Start: 09-21-2022 TIGRE SCREENING W CRISS Me sanket Cameron AUDIO PRODUCTION MANAGER Work Phone: Start: 09-21-2022 Mammography Screen/[facility] 4 Start: 07-09-2021 Ecg routine ecg w/le ast 12 lds i&r only Start: 09-26-2019 Mri any jt lower ext rem w/contrast material Austin Ruby Work Phone: Start: 09-26-2019 Arthrocentesis aspir &/inj major jt/bursa w/o us Austin Ruby Work Phone: Start: 12-03-2011 CONVERTED SURGICAL PATHOLOGY Claire Drake Work Phone: Start: 11-04-2010 CONVERTED SURGICAL PATHOLOGY Claire Drake Work Phone: Plan of Treatment Date Care Activity Detail Author Start: 01-22-2030 Lipid panel Lipid Screening [facility] Start: 2029 RSV Vaccine (1 - 1-d ose 75+ series) RSV Vaccine (1 - 1-dose 75+ series) [facility] Start: 04-03-2028 Diabetes Screening Diabetes Screenin g [facility] Start: 01-23-2028 Diabetes Screening Diabetes Screenin g [facility] Start: 12-04-2025 End: 12-04-2025 Patient encounter procedure 12/04/2025 10:30 AM EDT Office Visit [facility] [address] [place] [address] Mauro Muse MD [address] [place] [address] 6 Mth F/u [facility] Comment on above: 6 Mth F/u Start: 10-05-2025 Screening for malign ant neoplasm of breast Mammogram Screening [facility] Start: 05-06-2025 Influenza vaccination Influenza Vacc ine (#1) [facility] Start: 03-26-2025 End: 06-25-2025 Basic metabolic 2000 panel - Serum or Plasma BASIC METABOLIC PANEL Lab Routine Primary hypertension Epigastric pain SVT (supraventricular tachycardia) (HCC) Sinus bradycardia Expected: 03/26/2025, Expires: 06/25/2025 [facility] Work Phone: Comment on above: Expected: 03/26/2025 , Expires: 06/25/2025 Start: 03-26-2025 End: 06-25-2025 Magnesium [Mass/volume] in Serum or Plasma MAGNESIUM Lab Routine Primary hypertension SVT (supraventricular tachycardia) (HCC) Expected: 03/26/2025, Expires: 06/25/2025 [facility] Comment on above: Expected: 03/26/2025 , Expires: 06/25/2025 Start: 03-26-2025 End: 03-26-2025 Patient encounter procedure [facility] Comment on above: Hosp f/up HOSP F/U Start: 09-05-2024 Advance Directive Discussion Advance Directive Discussion [facility] Start: 07-09-2024 DIABETES SCREEN DIABETES SCREEN [facility] Start: 07-09-2024 Diabetes Screening Diabetes Screenin g [facility] Start: 05-06-2024 Covid-19 Vaccine ( season) Covid-19 Vaccine () [facility] Start: 05-06-2024 Influenza vaccination Influenza Vacc ine (#1) [facility] Start: 02-23-2024 Urine microalbumin profile DTaP,Tdap,Td Vaccine (2 - Tdap) [facility] Start: 09-21-2023 Mammography MAMMOGRAM [facility] Start: 09-21-2023 Screening for malign ant neoplasm of breast Mammogram Screening [facility] Start: 09-05-2023 Advance Directive Discussion Advance Directive Discussion [facility] Start: 09-05-2023 [facility] Start: 05-06-2023 Influenza vaccination Influenza Vacc ine (#1) [facility] Start: 09-05-2022 ADVANCE DIRECTIVE DISCUSSION ADVANCE DIRECTIVE DISCUSSION [facility] Start: 09-05-2022 [facility] Start: 05-06-2022 Influenza vaccination INFLUENZA (#1) [facility] Start: 2019 DEXA (modify frequen cy per FRAX score) DEXA (modify frequency per FRAX score) [facility] Work Phone: Start: 2019 Pneumococcal 65+ yea rs Vaccine (1 of 1 - PPSV23) Pneumococcal 65+ years Vaccine (1 of 1 - PPSV23) [facility] Work Phone: Start: 2019 Pneumococcal Vaccine : 65+ (1 of 1 - PCV) Pneumococcal Vaccine: 65+ (1 of 1 - PCV) [facility] Start: 2019 PNEUMOCOCCAL: 65+ (1 - PCV) PNEUMOCOCCAL: 65+ (1 - PCV) [facility] Start: 06-05-2019 Medicare Annual Wellness Visit Medicare Annual Wellness Visit [facility] Start: 05-06-2019 Influenza vaccination Flu vaccine (# 1) [facility] Work Phone: Start: 2014 RSV Vaccine (1 - 1-d ose 60+ series) RSV Vaccine (1 - 1-dose 60+ series) [facility] Start: 2014 RSV Vaccine (1 - Ris k 60-74 years 1-dose series) RSV Vaccine (1 - Risk 60-74 years 1-dose series) [facility] Start: 2004 Breast cancer screen Breast cancer s creen [facility] Work Phone: Start: 2004 Colon cancer screen colonoscopy Colon cancer screen colonoscopy [facility] Work Phone: Start: 2004 Pneumococcal Vaccine : 50+ (1 of 1 - PCV) Pneumococcal Vaccine: 50+ (1 of 1 - PCV) [facility] Start: 2004 Shingles Vaccine (1 of 2) Shingles Vaccine (1 of 2) [facility] Work Phone: Start: 2004 SHINGRIX VACCINE (1 of 2) SHINGRIX VACCINE (1 of 2) [facility] Start: 1999 COLOGUARD (FIT-DNA) COLOGUARD (FIT-D NA) [facility] Start: 1999 Colonoscopy COLONOSCOPY [facility] Start: 1999 COLORECTAL CANCER SCREENING COLORECTAL CANCER SCREENING [facility] Start: [address] [facility] Start: 1999 FECAL OCCULT BLOOD FECAL OCCULT BLOO D [facility] Start: 1999 Lipid panel Lipid Screening [facility] Start: 1999 LIPID SCREEN LIPID SCREEN [facility] Start: 1999 Screening for malign ant neoplasm of colon [facility] Start: 1999 SIGMOIDOSCOPY SIGMOIDOSCOPY [facility] Start: 1994 Lipid screen Lipid screen [facility] Work Phone: Start: 1975 Cervical cancer screen Cervical canc er screen [facility] Work Phone: Start: 1973 Urine microalbumin profile [facility] Start: 1972 Annual PCP Team Clerical Order Filler merlyn Disease Visit Annual PCP Team Chronic Disease Visit [facility] Start: 1972 Anxiety Screening Anxiety Screening [facility] Start: 1972 BP Controlled (<130/80) BP Controlle d (<130/80) [facility] Start: 1972 Depression Screening Depression Scre ening [facility] Start: 1972 HEPATITIS C SCREENING HEPATITIS C SC [facility] Start: 1972 Hepatitis C screening Hepatitis C Sc [facility] Start: 1969 HIV screen HIV screen [facility] Work Phone: Start: 1965 DTaP/Tdap/Td vaccine (1 - Tdap) DTaP/Tdap/Td vaccine (1 - Tdap) [facility] Work Phone: Start: 1954 COVID-19 VACCINE (#1) COVID-19 VACCI NE (#1) [facility] Start: 1954 Hepatitis C screen Hepatitis C scree n [facility] Work Phone: Bacteria identified in Urine by Culture BACTERIAL CULTURE, URINE Microbiology Routine Dysuria 02/06/2025 9:50 AM EDT [facility] Work Phone: FISH FOR BLADDER CAN CER WITH URINE CYTOLOGY FISH FOR BLADDER CANCER WITH URINE CYTOLOGY Lab Routine Microscopic hematuria [R31.29] Ordered: 10/25/2023 [facility] Work Phone: Comment on above: Ordered: 10/25/2023 Helicobacter pylori Ag [Presence] in Stool by Immunoassay [facility] US Abdomen limited [facility] Immunizations Immunization Date Immunization Notes Care Provider Fa greta 06-25-2024 Seasonal trivalent influenza vaccine, adjuvanted, preservative free Winter Soto MA [facility] 06-25-2024 influenza virus vacc ine, unspecified formulation Winter Charles [facility] 06-22-2023 influenza (aIIV4) [facility], age 65+ yr, quadrivalent, PF (FLUAD QUAD) Winter Soto [facility] 01-05-2023 zoster vaccine recombinant Winter anthony [facility] 10-05-2022 zoster vaccine recombinant Winter [facility] 07-05-2022 influenza (aIIV4) [facility], age 65+ yr, quadrivalent, PF (FLUAD QUAD) Winter Soto [facility] 06-10-2021 influenza (HD-IIV4) vaccine, age 65+ yr, high dose, quadrivalent, PF (FLUZONE HIGH-DOSE) Winter Soto [facility] 07-10-2020 pneumococcal polysac charide vaccine, 23 valent Winter Soto [facility] 06-04-2020 influenza (HD-IIV4) vaccine, age 65+ yr, high dose, quadrivalent, PF (FLUZONE HIGH-DOSE) Winter Soto [facility] 05-05-2020 influenza virus vacc ine, unspecified formulation Winter Soto [facility] 06-26-2019 Influenza, injectabl e, Madin [place] Canine Kidney, preservative free, quadrivalent Winter Soto [facility] 06-26-2019 pneumococcal conjuga te vaccine, 13 valent Winter Soto [facility] 11-13-2015 zoster vaccine, live Winter Olivia [facility] 02-22-2014 diphtheria and tetan us toxoids, adsorbed for pediatric use [facility] Payers Date Payer Category Payer Self-pay 2019 [facility] D[facility] SUPPLE[facility] [id number] 2019 Medicare [id number] 2019 Unknown ANTHEM ANTHEM ME DICARE SUPPLEMENT [id number] 2019-Present [phone] [address] [place] [address] Indemnity [id number] 2019 Medicare [id number] 2019 Unknown [id number] 1954 Unknown [id number] 1954 Unknown [id number] 1954 Unknown [id number] 1954 Unknown [id number] 1954 Unknown [id number] Unknown [id number] Unknown [id number] Unknown [id number] Unknown [id number] Unknown [id number] Social History Date Type Detail Facility [facility] Work Phone: Start: 1955 Sex Assigned At Not on file S [facility] Work Phone[facility] smoking consumption unknown [facility] Start: 1955 Sex Assigned At Female [facility] Start: 10-25-2023 End: 01-30-2025 Tobacco smoking status NHIS Never smoked tobacco [facility] Start: 10-25-2023 Tobacco use and exposure Smokeless tobacco non-user [facility] Start: 10-25-2023 End: 03-26-2025 Alcohol intake Lifetime non-drinker (finding) [facility] Start: 10-25-2023 End: 01-22-2025 History of Social function [facility] Start: 10-25-2023 End: 01-22-2025 Tobacco use panel [facility] National Score (1-10 0), lower number is lower risk 28 [facility] Has the Socratic, or FreeAgent threatened to shut off services in your home in past 12Mo No [facility] (I/We) worried supa er (my/our) food would run out before (I/we) got money to buy more. Never true [facility] Goals Date Patient Goal Desired Activity /State Personal health goal Functional Status Date Assessment Result Facility 01-22-2025 Are you deaf, or do you have serious difficulty hearing No 01/22/2025 2:27 PM EDT Macarena Neri, RN No [facility] 01-22-2025 Are you blind, or do you have serious difficulty seeing, even when wearing glasses No 01/22/2025 2:27 PM Macarena Alberts, RN No [facility] 01-22-2025 Do you have serious difficulty walking or climbing stairs No 01/22/2025 2:27 PM Macarena Alberts, RN No [facility] 01-22-2025 Do you have difficul ty dressing or bathing No 01/22/2025 2:27 PM EDMacarena Bryant, RN No [facility] 01-22-2025 Because of a physica l, mental, or emotional condition, do you have difficulty doing errands alone such as visiting a physician's office or shopping No 01/22/2025 2:27 PM EDT Macarena Neri RN No [facility] Mental Status Date Assessment Result Facility 01-22-2025 Because of a physica l, mental, or emotional condition, do you have serious difficulty concentrating, remembering, or making decisions No 01/22/2025 2:27 PM EDT Macarena Neri RN No [facility] Clinical Notes 10-19-2020 to 04-04-2025 Telephone Encounter - Linda Carter APRN.ANIVAL - 04/04/2025 10:24 AM EDTTelephone Encounter - Linda Carter APRN.CNP - 04/04/2025 10:24 AM EDTPatient InstructionsPatient Instructions Note Date & Type Note Facility 04-04-2025 Telephone encounter Note Updates noted. Medication list already updated to reflect reduce lisinopril dose of 10 mg daily. Will await symptom and blood pressure update. Thank you, Linda Carter (Angel) MSN, [employer]GER, AUDIO PRODUCTION MANAGER [facility] 04-04-2025 Miscellaneous Notes Updates noted. Medication list already updated to reflect reduce lisinopril dose of 10 mg daily. Will await symptom and blood pressure update. Thank you, Linda Carter (Angel) MSN, [employer]IGGER, AUDIO PRODUCTION MANAGER Call placed to Marci at this time. She was informed of Mau's comments and recommendations in detail as below. She admits to feeling general fatigue with the lower BP readings. She was advised that she could trial decreasing her Lisinopril from 20mg PO daily to 10mg (1/2 tablet) PO daily. She was encouraged to continue to monitor her BP and check in with Mau in about one week regarding her BP log/measurements. She was informed of the results of her labs performed yesterday, for which she expressed understanding. She was encouraged to call the office for any questions or concerns. She verbalized understanding and expressed appreciation for the call. Alfie Fernández RN April 04, 2025 9:08 AM Received updated blood pressure readings from patient after stopping amlodipine and restarting hydrochlorothiazide 12.5 mg along with continuing lisinopril 20 mg daily on 03/26/2025. Some of these blood pressures are on the lower side. Please see how she is feeling. If she is feeling fine would leave medication regimen as is. If she is having fatigue or feeling lightheaded would reduce lisinopril dose. Blood work done 04/03/2025 for monitoring with medication change looks fine. No concerns with kidney function or electrolytes. Thank you, Linda Carter (Angel) MSN, [employer] RIGGER, AUDIO PRODUCTION MANAGER Images from the original note were not included. Patient dropped off BP log: Winter Soto MA documented in this encounter [facility] 04-04-2025 Telephone encounter Note Call placed to Marci at this time. She was informed of Mau's comments and recommendations in detail as below. She admits to feeling general fatigue with the lower BP readings. She was advised that she could trial decreasing her Lisinopril from 20mg PO daily to 10mg (1/2 tablet) PO daily. She was encouraged to continue to monitor her BP and check in with Mau in about one week regarding her BP log/measurements. She was informed of the results of her labs performed yesterday, for which she expressed understanding. She was encouraged to call the office for any questions or concerns. She verbalized understanding and expressed appreciation for the call. Alfie Fernández RN April 04, 2025 9:08 AM [facility] 04-04-2025 Telephone encounter Note Received updated blood pressure readings from patient after stopping amlodipine and restarting hydrochlorothiazide 12.5 mg along with continuing lisinopril 20 mg daily on 03/26/2025. Some of these blood pressures are on the lower side. Please see how she is feeling. If she is feeling fine would leave medication regimen as is. If she is having fatigue or feeling lightheaded would reduce lisinopril dose. Blood work done 04/03/2025 for monitoring with medication change looks fine. No concerns with kidney function or electrolytes. Thank you, Linda Carter (Angel), MSN, [employer] RIGGER, AUDIO PRODUCTION MANAGER [facility] 04-03-2025 Telephone encounter Note Images from the original note were not included. Patient dropped off BP log: Winter Soto MA [facility] 03-26-2025 Instructions Linda Carter APRN.AUDIO PRODUCTION MANAGER - 03/26/2025 2:26 PM EDT Continue lisinopril 40 mg daily, STOP amlodipine 5 mg daily, START hydrochlorothiazide 12.5 mg daily. Continue to monitor your blood pressure and call readings in 1-2 weeks, sooner if low and would decrease lisinopril back to 20 mg (your prior dose). May need potassium supplement with low potassium on hydrochlorothiazide. Recommend follow-up with electrophysiology regarding symptomatic supraventricular tachycardia with HR 30s at night/rock lather limiting use of beta-marian. Call office for results of testing/blood work if you have not heard form us within 7 days of completing test. Please monitor home blood pressure and heart rate. Please call office if blood pressure becomes elevated (>130/80) or is running low (< 100/50) with home monitoring. Bring blood pressure log to next appointment. Participate in a regular exercise regimen of at least 30 to 45 minutes of exercise 4 to 5 days a week. Follow a low cholesterol, no added salt and no added sugar diet. Limit total intake of fats, oils and sweets. Avoid fried foods. Fish, turkey, lean meats, nonfat dairy products, steamed vegetables and whole grains are all better choices for a low cholesterol diet. Always bring an updated medication list to every appointment. Follow up with all other providers. Call for any cardiac medication refills. Please call our office with any questions or concerns. documented in this encounter [facility] 03-26-2025 History of Present illness Narrative Images from the original note were not included. Heart, Vascular and Thoracic Winifred Zoya Corrales Department of Cardiovascular Medicine [facility] OUTPATIENT VISIT 03/26/2025 HOSPITAL FOLLOW-UP (new to [facility] office) PRIMARY CARE PHYSICIAN: Florencia Barnes CNP [address] [address] CHIEF COMPLAINT: Hospital follow-up HISTORY OF PRESENT ILLNESS: Marci Glaan is a 69 year old female patient known to Dr Chavez (last seen by Dr Chavez as inpatient cardiology consult on 01/22/2025) with PMHx hypertension, basal cell carcinoma, cervical cancer s/p total hysterectomy, and asthma. Marci is here today for general cardiology follow-up visit. Today is my first time meeting/caring for Marci. Admitted to [facility] 01/21/2025 - 01/22/2025 for epigastric pain/chest pain after eating smoothie. Prior heart cath decades ago reported as normal. Echocardiogram 01/22/2025 showed normal EF of 60%, moderate TR. NM MPI 01/22/2025 normal without inducible ischemia. Hydrochlorothiazide discontinued for episodes of feeling lightheaded with standing. Cardiac medications at discharge 01/22/2025: - Lisinopril 20 mg daily Type of Monitor: Extended Monitoring-Zio Patch Enrollment Dates: 01/22/2025-02/05/2025 IRHYTHM FINDINGS: Patient had a min HR of 40 bpm around 4:54 am , max HR of 144 bpm, and avg HR of 67 bpm. Predominant underlying rhythm was Sinus Rhythm. 35 Supraventricular Tachycardia runs occurred, the run with the fastest interval lasting 12 beats with a max rate of 194 bpm, the longest lasting 17.7 secs with an avg rate of 109 bpm. Isolated SVEs were rare (<1.0%), SVE Couplets were rare (<1.0%), and SVE Triplets were rare (<1.0%). Isolated VEs were rare (<1.0%), VE Couplets were rare (<1.0%), and no VE Triplets were present. 3 dairy episodes - light headed /flutter correlated with sinus and artifact. Lot of artifacts noted in the monitor. No a.fib noted. Since discharge, she was treated for UTI by PCP. Marci reports feeling good from a cardiac standpoint. No chest pain, shortness of breath, orthopnea, cough, edema, PND, syncope, or bleeding. Does have palpitations. Occasional lightheaded episodes and palpitations that on monitor correlated with SVT. Lisinopril increased to 40 mg daily after discharge by PCP because blood pressure was 162 systolic. Historically her blood pressure runs low 100s systolic when was on lisinopril-HCTZ 20-12.5 which she had been on for many years. No added salt, no fast food, no fried foods, lots of vegetables, does not eat meat, does eat diary, also eats occasional pickled egg. Has been told that she had/passed gallstone after discharge. Smoking: No. Alcohol: No. Recreational drug use: No. Cardiac medications reconciled today with patient and are as per medication list. STOP BANG Questionnaire 1. Snoring Do you snore loudly (louder than talking or loud enough to be heard through closed doors)? NO 2. Tired Do you often feel tired, fatigued, or sleepy during daytime? YES 3. Observed Has anyone observed you stop breathing during your sleep? NO 4. Blood Pressure Do you have or are you being treated for high blood pressure? YES 5. BMI BMI more than 35 kg/m2? NO 6. Age Age over 50 yr old? YES 7. Neck circumference Neck circumference greater than 40 cm? NO 8. Gender Gender male? NO * Neck circumference is measured by staff High risk of ANGIE: answering yes to three or more items Low risk of ANGIE: answering yes to less than three items PAST MEDICAL HISTORY: PAST MEDICAL HISTORY Diagnosis Date Anemia 03/25/2025 Arthritis 03/25/2025 Asthma with chronic obstructive pulmonary disease (COPD) (HCC) 01/22/2025 Cervical cancer (HCC) Chest pain, moderate coronary artery risk 01/21/2025 Epigastric pain 02/07/2025 HTN (hypertension) 01/22/2025 Sinus bradycardia 01/22/2025 Skin cancer PAST SURGICAL HISTORY: PAST SURGICAL HISTORY Procedure Laterality Date BACK SURGERY HX 2000 BLADDER SURGERY HX HIP SURGERY HX Right 2019 POST-CATARACT LASER SURGERY Bilateral 2022 TOTAL ABDOM HYSTERECTOMY FAMILY HISTORY: FAMILY HISTORY Problem Relation Age of Onset Prostate Cancer Father SOCIAL HISTORY: Social History Tobacco Use Smoking status: Never Smokeless tobacco: Never Vaping Use Vaping status: Never Used Substance Use Topics Alcohol use: Never Drug use: Never ALLERGIES: Sulfa (Sulfonamide Antibiotics) CURRENT MEDICATIONS: Current Outpatient Medications Medication Sig pantoprazole DR (PROTONIX) 40 mg tablet Take 40 mg by mouth daily before breakfast. traZODone (DESYREL) 50 mg tablet Take 25 mg by mouth daily at bedtime. fluticasone (FLONASE) 50 mcg/actuation nasal spray Use 50 mcg in the nose two times a day. amLODIPine (NORVASC) 5 mg tablet Take 1 tablet by mouth once daily. lisinopril (ZESTRIL) 20 mg tablet Take 1 tablet by mouth once daily. albuterol HFA (PROVENTIL HFA, VENTOLIN HFA) 90 mcg/actuation inhaler INHALE TWO PUFFS EVERY 4 HOURS NEEDED FOR WHEEZE fluticasone-salmeterol (ADVAIR, WIXELA) 250-50 mcg/dose inhaler INHALE 1 PUFF TWICE DAILY FOR 30 DAYS montelukast (SINGULAIR) 10 mg tablet Take 1 tablet by mouth every afternoon. No current facility-administered medications for this visit. VITAL SIGNS: There were no vitals filed for this visit. Last 3 Encounter BP Readings: Date: BP: 02/06/2025 135/87 01/21/2025 98/60 10/12/2024 118/85 Last 3 Encounter Pulse Readings: Date: Pulse: 02/06/2025 63 01/21/2025 55 10/12/2024 73 Last 3 Encounter Wt Readings: Date: Wt: 02/06/2025 66.3 kg (146 lb 2.6 oz) 01/21/2025 71.7 kg (158 lb 1.1 oz) 10/12/2024 68 kg (149 lb 14.6 oz) PHYSICAL EXAMINATION: Physical Exam Vitals and nursing note reviewed. Constitutional: General: She is not in acute distress. Appearance: Normal appearance. HENT: Head: Normocephalic and atraumatic. Neck: Vascular: No carotid bruit. Cardiovascular: Rate and Rhythm: Normal rate and regular rhythm. Pulses: Normal pulses. Heart sounds: No murmur heard. No friction rub. No gallop. Pulmonary: Effort: Pulmonary effort is normal. Breath sounds: Normal breath sounds. No wheezing, rhonchi or rales. Musculoskeletal: Right lower leg: No edema. Left lower leg: No edema. Skin: General: Skin is warm and dry. Neurological: Mental Status: She is alert. Mental status is at baseline. Psychiatric: Mood and Affect: Mood normal. Judgment: Judgment normal. LABS: Last A1C: 5.4 - 01/21/2025 TSH 1.188 01/21/2025 Triglyceride 90 01/22/2025 HDL Cholesterol 44 01/22/2025 LDL Cholesterol, Calculated 77 01/22/2025 Cholesterol, Total 138 01/22/2025 Magnesium Date Value Ref Range Status 01/22/2025 2.4 1.6 - 2.6 mg/dL Final Latest Ref Rng & Units 01/22/2025 01/21/2025 08/18/2023 BMP Glucose 70 - 100 mg/dL 84 104 BUN 7 - 26 mg/dL 24 26 Creatinine 0.51 - 0.95 mg/dL 0.78 0.85 Sodium 136 - 145 mmol/L 144 143 Potassium 3.5 - 5.1 mmol/L 4.0 3.0 Chloride 98 - 107 mmol/L 108 108 CO2 21 - 32 mmol/L 29 24 Anion Gap 5 - 16 mmol/L 7 11 Calcium 8.5 - 10.5 mg/dL 9.4 9.6 EGFR >=60 mL/min/1.73m 82 74 >60 Hemoglobin Date Value 01/22/2025 10.9 g/dL 07/09/2021 12.8 G/DL Hematocrit (%) Date Value 01/22/2025 31.7 07/09/2021 37.3 WBC Date Value 01/21/2025 8.02 k/uL 07/09/2021 2.9 K/CUMM Platelet Count Date Value 01/21/2025 238 k/uL 07/09/2021 176 K/CU MM Lab Results Component Value Date HSTROP 17.4 01/22/2025 HSTROP 13.0 01/21/2025 HSTROP 4.8 01/21/2025 PBNP 204 (H) 01/21/2025 CARDIOVASCULAR MEDICINE TESTING: Last ECHO Result Conclusion ECHO Collected: 01/22/2025 8:24 AM (Final result) Impression: CONCLUSIONS: - Exam indication: Chest Pain - The left ventricle is normal in size. Left ventricular systolic function is normal. EF = 60 5% (visual est.) Normal left ventricular diastolic function. No RWMA - The right ventricle is normal in size. Right ventricular systolic function is normal. - The right atrial cavity is mildly dilated. - There is moderate (2+) tricuspid valve regurgitation. 1-2+AI with PHT 580 msec 1+MR/PI - The patient has not had a prior CC echocardiographic exam for comparison. * * * Final * * * Last EKG Result Conclusion ECG COMPLETE Collected: 01/21/2025 10:08 PM (Final result) Impression: Sinus bradycardia Otherwise normal ECG When compared with ECG of 09-Jul-2021 17:47, No significant change was found Confirmed by JOSH ZHENG, [facility] ([id number]) on 01/22/2025 9:14:47 PM I have personally reviewed the Electrocardiogram, Laboratory Testing, Echocardiogram, Stress Test: Nuclear (Non-PET), and 14 day Zio Monitor. PLAN AND RECOMMENDATIONS: (I10) Primary hypertension (primary encounter diagnosis) - Blood pressure has been very well-controlled historically, long-term on lisinopril-HCTZ 20-12.5 mg daily. Discontinued during hospital stay for hypokalemia. Since discharge blood pressures remained elevated and PCP increase lisinopril to 20 mg daily and also added amlodipine 5 mg daily with still borderline blood pressure control. - Echocardiogram revealed moderate tricuspid regurgitation and RVSP 28 mmHg. Recommend stop amlodipine and restart HCTZ. Will continue lisinopril at 40 mg dose for now with understanding that we may reduce back to 20 mg daily if blood pressures are running low. - Repeat BMP and magnesium level in 1 week. She understands she may need potassium and/or magnesium supplementation with restarting hydrochlorothiazide. (R10.13) Epigastric pain -Diagnosed with gallstones after discharge. Pain fully resolved. (I47.10) SVT (supraventricular tachycardia) (HCC) (R00.1) Sinus bradycardia - Consult electrophysiology for recommendations/treatment with bradycardia and symptomatic SVT in the 30s during rock lather hours (5 AM; typically wakes at 6 AM) and bradycardia limiting beta-marian use. Some elements copied from Dr. Chavez inpatient cardiology consult on 01/22/2025, the elements have been updated and all reflect current decision making from today, 03/26/2025. Portions of this progress note been completed using dictation software, some mild spelling/grammar inconsistencies may exist. I spent a total of 50 minutes today which included preparing to see the patient/chart review, duay-[id number]-[id number] patient care, obtaining/reviewing appropriate history, obtaining medically appropriate exam, counseling and educating patient, ordering/interpreting tests/procedures, managing medications, completing clinical documentation, and care coordination. Linda Carter, MSN, PARACHUTE HARNESS RIGGER, VAMP MAKER-C cc: Florencia Barnes CNP, ANIVAL documented in this encounter [facility] 03-26-2025 Note HNO ID: [id number] Author: LINDA CARTER APRN.CNP Service: ? Author Type: Nurse Practitioner Type: Progress Notes Filed: 04/04/2025 07:02 Note Text: Heart, Vascular and Thoracic Winifred Zoya Corrales Department of Cardiovascular Medicine [facility] OUTPATIENT VISIT 03/26/2025 HOSPITAL FOLLOW-UP (new [facility] office) PRIMARY CARE PHYSICIAN: Florencia Barnes CNP [address] [place] [address] CHIEF COMPLAINT: Hospital follow-up HISTORY OF PRESENT ILLNESS: Marci Galan is a 69 year old female patient known to Dr Chavez (last seen by Dr Chavez as inpatient cardiology consult on 01/22/2025) with PMHx hypertension, basal cell carcinoma, cervical cancer s/p total hysterectomy, and asthma. Marci is here today for general cardiology follow-up visit. Today is my first time meeting/caring for Marci. Admitted to [facility] 01/21/2025 - 01/22/2025 for epigastric pain/chest pain after eating smoothie. Prior heart cath decades ago reported as normal. Echocardiogram 01/22/2025 showed normal EF of 60%, moderate TR. NM MPI 01/22/2025 normal without inducible ischemia. Hydrochlorothiazide discontinued for episodes of feeling lightheaded with standing. Cardiac medications at discharge 01/22/2025: - Lisinopril 20 mg daily Type of Monitor: Extended Monitoring-Zio Patch Enrollment Dates: 01/22/2025-02/05/2025 IRHYTHM FINDINGS: Patient had a min HR of 40 bpm around 4:54 am , max HR of 144 bpm, and avg HR of 67 bpm. Predominant underlying rhythm was Sinus Rhythm. 35 Supraventricular Tachycardia runs occurred, the run with the fastest interval lasting 12 beats with a max rate of 194 bpm, the longest lasting 17.7 secs with an avg rate of 109 bpm. Isolated SVEs were rare (<1.0%), SVE Couplets were rare (<1.0%), and SVE Triplets were rare (<1.0%). Isolated VEs were rare (<1.0%), VE Couplets were rare (<1.0%), and no VE Triplets were present. 3 dairy episodes - light headed /flutter correlated with sinus and artifact. Lot of artifacts notedin the monitor. No a.fib noted. Since discharge, she was treated for UTI by PCP. Marci reports feeling good from a cardiac standpoint. No chest pain, shortness of breath, orthopnea, cough, edema, PND, syncope, or bleeding. Does have palpitations. Occasional lightheaded episodes and palpitations that on monitor correlated with SVT. Lisinopril increased to 40 mg daily after discharge by PCP because blood pressure was 162 systolic. Historically her blood pressure runs low 100s systolic when was on lisinopril-HCTZ 20-12.5 which she had been on for many years. No added salt, no fast food, no fried foods, lots of vegetables, does not eat meat, does eat diary, also eats occasional pickled egg. Has been told that she had/passed gallstone after discharge. Smoking: No. Alcohol: No. Recreational drug use: No. Cardiac medications reconciled today with patient and are as per medication list. STOP BANG Questionnaire 1. Snoring Do you snore loudly (louder than talking or loud enough to be heard through closed doors)? NO 2. Tired Do you often feel tired, fatigued, or sleepy during daytime? YES 3. Observed Has anyone observed you stop breathing during your sleep? NO 4. Blood Pressure Do you have or are you being treated for high blood pressure? YES 5. BMI BMI more than 35 kg/m2? NO 6. Age Age over 50 yr old? YES 7. Neck circumference Neck circumference greater than 40 cm? NO 8. Gender Gender male? NO * Neck circumference is measured by staff High risk of ANGIE: answering yes to three or more items Low risk of ANGIE: answering yes to less than three items PAST MEDICAL HISTORY: PAST MEDICAL HISTORY Diagnosis Date Anemia 03/25/2025 Arthritis 03/25/2025 Asthma with chronic obstructive pulmonary disease (COPD) (HCC) 01/22/2025 Cervical cancer (HCC) Chest pain, moderate coronary artery risk 01/21/2025 Epigastric pain 02/07/2025 HTN (hypertension) 01/22/2025 Sinus bradycardia 01/22/2025 Skin cancer PAST SURGICAL HISTORY: PAST SURGICAL HISTORY Procedure Laterality Date BACK SURGERY HX 2000 BLADDER SURGERY HX HIP SURGERY HX Right 2020 POST-CATARACT LASER SURGERY Bilateral 2022 TOTAL ABDOM HYSTERECTOMY FAMILY HISTORY: FAMILY HISTORY Problem Relation Age of Onset Prostate Cancer Father SOCIAL HISTORY: Social History Tobacco Use Smoking status: Never Smokeless tobacco: Never Vaping Use Vaping status: Never Used Substance Use Topics Alcohol use: Never Drug use: Never ALLERGIES: Sulfa (Sulfonamide Antibiotics) CURRENT MEDICATIONS: Current Outpatient Medications Medication Sig pantoprazole DR (PROTONIX) 40 mg tablet Take 40 mg by mouth daily before breakfast. traZODone (DESYREL) 50 mg tablet Take 25 mg by mouth daily at bedtime. fluticasone (FLONASE) 50 (more content not included)... [facility] 02-07-2025 Telephone encounter Note Please advise urine culture shows possible contamination. Recommending to finish out out Keflex but if symptoms persist or worsen follow up with PCP. Thanks! [facility] Work Phone: 02-07-2025 Miscellaneous Notes Please advise urine culture shows possible contamination. Recommending to finish out out Keflex but if symptoms persist or worsen follow up with PCP. Thanks! documented in this encounter [facility] 02-06-2025 Instructions Cheryl Soto APRN.CNP - 02/06/2025 9:59 AM EDT Preliminary urine testing completed in [facility] is indicative of a Urinary Tract Infection. Increase fluids Avoid caffeine or carbonated drinks at this time Take all medications as ordered ER right away if you note a fever over 100.7, nausea, vomiting, and low back pain. Go to ER documented in this encounter [facility] 02-06-2025 Note HNO ID: [id number] Author: CHERYL SOTO APRN.CNP Service: ? Author Type: Nurse Practitioner Type: Progress Notes Filed: 02/06/2025 10:03 Note Text: [facility] February 06, 2025 [facility]PI [facility] history of urinary tract infection symptoms. Patient states throughout the night she developed burning with urination as well as urgency and frequency. Patient states she completed a cleanse 1 week ago. States that she was on the cleanse for 10 days. Was able to eat fruit as well as have water and pureed vegetables. Patient states she lost 8 pounds during this cleanse. States that she has since gained that weight back. Has had lower back pain. Denies any fever. States she started the cleanse when diagnosed with gallstones recently. Denies any hematuria, fever, vomiting, pelvic pressure. PAST MEDICAL HISTORY Diagnosis Date Cervical cancer (HCC) Skin cancer PAST SURGICAL HISTORY Procedure Laterality Date BACK SURGERY HX 1999 BLADDER SURGERY HX HIP SURGERY HX Right 2019 POST-CATARACT LASER SURGERY Bilateral 2022 TOTAL ABDOM HYSTERECTOMY FAMILY HISTORY Problem Relation Age of Onset Prostate Cancer Father Social History Tobacco Use Smoking status: Never Smokeless tobacco: Never Vaping Use Vaping status: Never Used Substance Use Topics Alcohol use: Never Drug use: Never ALLERGIES Allergen Reactions Sulfa (Sulfonamide * Rash There is no immunization history on file for this patient. Current Medications lisinopril (ZESTRIL) 20 mg tablet Take 1 tablet by mouth once daily. albuterol HFA (PROVENTIL HFA, VENTOLIN HFA) 90 mcg/actuation inhaler INHALE TWO PUFFS EVERY 4 HOURS NEEDED FOR WHEEZE fluticasone-salmeterol (ADVAIR, WIXELA) 250-50 mcg/dose inhaler INHALE 1 PUFF TWICE DAILY FOR 30 DAYS montelukast (SINGULAIR) 10 mg tablet Take 1 tablet by mouth every afternoon. Review of Systems Constitutional: Negative for fever. Genitourinary: Positive for dysuria and frequency. Negative for flank pain, hematuria and pelvic pain. Vital Signs BP 151/87 Pulse 63 Temp 97.9 Resp 18 Wt 146 lb 2.6 oz (66.3kg) SpO2 97% Physical Exam Vitals reviewed. Constitutional: General: She is not in acute distress. Appearance: Normal appearance. She is not ill-appearing, toxic-appearing or diaphoretic. HENT: Head: Normocephalic and atraumatic. Abdominal: Tenderness: There is no right CVA tenderness or left CVA tenderness. Skin: General: Skin is warm and dry. Capillary Refill: Capillary refill takes less than 2 seconds. Neurological: Mental Status: She is alert and oriented to person, place, and time. Psychiatric: Mood and Affect: Mood normal. Behavior: Behavior normal. Thought Content: Thought content normal. Judgment: Judgment normal. ASSESSMENT/PLAN: 1. Acute cystitis with hematuria - ICD9: 595.0, ICD10: N30.01 (primary diagnosis) Increase fluids Avoid caffeine or carbonated drinks at this time Take all medications as ordered ER right away if you note a fever over 100.7, nausea, vomiting, and low back pain. Go to ER - CEPHALEXIN 500 MG CAPSULE 2. Dysuria - ICD9: 788.1, ICD10: R30.0 acute - UA positive for navdeep esterase, hematuria, and proteinuria - Send urine for culture - Begin treatment with Keflex for 7 days - Patient education for prevention given - BACTERIAL CULTURE, URINE - UA DIP, URINE (POC) Cheryl Soto APRN.CNP Medical Decision Making: Problems: Low: 2+ self-limited or minor problems Data: Unique test result(s) reviewed: 2 Unique test(s) ordered: 2 Risk: Moderate: Drug management Medical Decision Making Level: 4 - Moderate Cheryl Soto APRN.CNP The patient/caregiver consented to the use of YeahMobi software for draft documentation of the visit consistent with [facility]?s Notice of Privacy Practices. [facility] 02-06-2025 History of Present illness Narrative [facility] February 06, 2025 HPI [facility] history of urinary tract infection symptoms. Patient states throughout the night she developed burning with urination as well as urgency and frequency. Patient states she completed a cleanse 1 week ago. States that she was on the cleanse for 10 days. Was able to eat fruit as well as have water and pur ed vegetables. Patient states she lost 8 pounds during this cleanse. States that she has since gained that weight back. Has had lower back pain. Denies any fever. States she started the cleanse when diagnosed with gallstones recently. Denies any hematuria, fever, vomiting, pelvic pressure. PAST MEDICAL HISTORY Diagnosis Date Cervical cancer (HCC) Skin cancer PAST SURGICAL HISTORY Procedure Laterality Date BACK SURGERY HX 2000 BLADDER SURGERY HX HIP SURGERY HX Right 2020 POST-CATARACT LASER SURGERY Bilateral 2022 TOTAL ABDOM HYSTERECTOMY FAMILY HISTORY Problem Relation Age of Onset Prostate Cancer Father Social History Tobacco Use Smoking status: Never Smokeless tobacco: Never Vaping Use Vaping status: Never Used Substance Use Topics Alcohol use: Never Drug use: Never ALLERGIES Allergen Reactions Sulfa (Sulfonamide * Rash There is no immunization history on file for this patient. Current Medications lisinopril (ZESTRIL) 20 mg tablet Take 1 tablet by mouth once daily. albuterol HFA (PROVENTIL HFA, VENTOLIN HFA) 90 mcg/actuation inhaler INHALE TWO PUFFS EVERY 4 HOURS NEEDED FOR WHEEZE fluticasone-salmeterol (ADVAIR, WIXELA) 250-50 mcg/dose inhaler INHALE 1 PUFF TWICE DAILY FOR 30 DAYS montelukast (SINGULAIR) 10 mg tablet Take 1 tablet by mouth every afternoon. Review of Systems Constitutional: Negative for fever. Genitourinary: Positive for dysuria and frequency. Negative for flank pain, hematuria and pelvic pain. Vital Signs BP 151/87 Pulse 63 Temp 97.9 Resp 18 Wt 146 lb 2.6 oz (66.3kg) SpO2 97% Physical Exam Vitals reviewed. Constitutional: General: She is not in acute distress. Appearance: Normal appearance. She is not ill-appearing, toxic-appearing or diaphoretic. HENT: Head: Normocephalic and atraumatic. Abdominal: Tenderness: There is no right CVA tenderness or left CVA tenderness. Skin: General: Skin is warm and dry. Capillary Refill: Capillary refill takes less than 2 seconds. Neurological: Mental Status: She is alert and oriented to person, place, and time. Psychiatric: Mood and Affect: Mood normal. Behavior: Behavior normal. Thought Content: Thought content normal. Judgment: Judgment normal. ASSESSMENT/PLAN: 1. Acute cystitis with hematuria - ICD9: 595.0, ICD10: N30.01 (primary diagnosis) Increase fluids Avoid caffeine or carbonated drinks at this time Take all medications as ordered ER right away if you note a fever over 100.7, nausea, vomiting, and low back pain. Go to ER - CEPHALEXIN 500 MG CAPSULE 2. Dysuria - ICD9: 788.1, ICD10: R30.0 acute - UA positive for navdeep esterase, hematuria, and proteinuria - Send urine for culture - Begin treatment with Keflex for 7 days - Patient education for prevention given - BACTERIAL CULTURE, URINE - UA DIP, URINE (POC) Cheryl Soto APRN.AUDIO PRODUCTION MANAGER Medical Decision Making: Problems: Low: 2+ self-limited or minor problems Data: Unique test result(s) reviewed: 2 Unique test(s) ordered: 2 Risk: Moderate: Drug management Medical Decision Making Level: 4 - Moderate Cheryl Soto APRN.CNP The patient/caregiver consented to the use of ambient Zaranga software for draft documentation of the visit consistent with [facility] s Notice of Privacy Practices. Urine sample collected. Lili Coles LPN documented in this encounter [facility] 02-06-2025 Note HNO ID: [id number] Author: LILI COLES LPN Service: ? Author Type: LICENSED NURSE Type: Progress Notes Filed: 02/06/2025 10:03 Note Text: Urine sample collected. Lili Coles LPN [facility] 02-04-2025 Radiology Diagnostic study note [facility] Imaging Services [address], [place] [address] Abdomen Limited MR#: [id number] Acct: [id number] Name: MARCI GALAN Rep #: [id number] : 1955 F 69 From: Anay Treadwell MD PCP: NEW Gallegos Status: REG CLI Study:Abdomen Limited Date of Exam: 10/30 Exam# [id number] Ordering Dr: Lucy Roy PROCEDURE: ABDOMEN LIMITED 02/04/2025 REASON FOR EXAM: ABDOMINAL PAIN, CHOLELITHIASIS TECHNIQUE: Complete abdominal ultrasound thompson-scale images with color doppler. PATIENT PREPARATION: Per protocol COMPARISON: None FINDINGS: Liver: Enlarged 18.9 cm. Normal echogenicity. Hepatopetal flow. Gallbladder: 1.8 cm gallstone. Gallbladder wall is not thickened. No pericholecystic fluid. Negative James's sign. Common bile duct: Measures 2.5 mm. No intrahepatic biliary dilatation.. Pancreas: Unremarkable Kidneys: The right kidney measures 10.2 cm. No hydronephrosis. US/Abdomen Limited IMPRESSION: Hepatomegaly. Cholelithiasis without acute cholecystitis. Reading Location: [facility] CC: VAMP MAKER-Wm Roy; VAMP MAKER-C Florencia Barnes ~ Forest Ranger Technician: Signed [facility] 01-30-2025 Evaluation note Diagnosis Onset Date Resolution Anemia acute January 30, 2025 9:15am Bloating acute January 30, 2025 9:15am Emesis acute January 30, 2025 9:15am Epigastric pain acute January 30, 2025 9:15am [facility] Work Phone: [phone] NoteHNO ID: [id number] Author: RIOS TAVARES EKG Tech Service: ? Author Type: Brand Attendant Type: Progress Notes Filed: 01/22/2025 14:47 Note Text: [facility] Marci S Adama : [address] [facility] Adama here for ZIO XT (Holter) holter monitor placement on 01/22/2025 . Patient complains of Sinus bradycardia [R00.1] . Holter serial number [id number] placed per protocol. Diary given to patient and educated on use. Patient instructed to remove monitor in 14 days and return monitor to LEIA Barajas [facility]05-20-2025 NoteHNO ID: [id number] Author: MACARENA NERI, MALIK Service: Nursing Author Type: Registered Nurse Type: Nursing Progress Note Filed: 01/22/2025 14:31 Note Text: Other: IV Out, Tele Off, Belongings in a bag, D/C Instructions went over with patient.[facility]05-20-2025 NoteHNO ID: [id number] Author: KRYSTLE SALINAS, MALIK Service: Care Management Author Type: Registered Nurse Type: Care Mgt Progress Note Filed: 01/22/2025 13:37 Note Text: CARE MANAGEMENT PROGRESS NOTE SERVICE DATE: 01/22/2025 SERVICE TIME: 1200 LOS: 0 days Chart reviewed No need for initial assessment at this time as no needs are anticipated for discharge planning. Patient functionally independent, nursing six click of 24 documented. patient has PCP, health insurance. Patient admitted from home for chest pain. Cardio consulted pending stress, echo. No needs identified for discharge planning. CM will follow in case needs arise, plan home. Attempted to speak with patient but she was off the floor for placement. SIGNATURE: Krystle Salinas RN PATIENT NAME: Marci Galan DATE: January 22, 2025 TIME: 1:36 [facility]05-20-2025 NoteHNO ID: [id number] Author: DOMINIQUE BROCK RT(R) Service: ? Author Type: Technologist Type: Progress Notes Filed: 01/22/2025 10:42 Note Text: RADIOLOGY SERVICE PROGRESS NOTE SERVICE DATE: 01/22/2025 SERVICE TIME: 10:42 AM PATIENT IDENTITY VERIFICATION COMPLETED USING TWO (2) STANDARD IDENTIFIERS: Name and Date of confirmed by patient verbally FALL SCREENING: Has the patient had 2 falls in the last year or 1 fall with injury or currently using an Ambulatory Assistive Device (Walker, Cane, Wheelchair, Crutches, etc.)? No PATIENT GENDER DATA: .female : No ALLERGIES: Reviewed and unchanged MEDICATIONS REVIEWED: Not applicable PATIENT RELEVANT IMPLANT DATA REVIEWED: Not Applicable PATIENT PRESENTS WITH AN IMPLANTABLE OR ATTACHED BANANA HANDLER: No CREATININE: Creatinine Date Value Ref Range Status 01/22/2025 0.78 0.51 - 0.95 mg/dL Final Comment: Patients receiving either N-Acetylcysteine (NAC) or Metamizole prior to venipuncture, may have falsely depressed results. 01/21/2025 0.85 0.51 - 0.95 mg/dL Final Comment: Patients receiving either N-Acetylcysteine (NAC) or Metamizole prior to venipuncture, may have falsely depressed results. Creatinine (POCT) Date Value Ref Range Status 08/18/2023 0.80 0.60 - 1.30 mg/dL Final Estimated Glomerular Filtration Rate Date Value Ref Range Status 01/22/2025 82 >=60 mL/min/1.73m? Final Comment: Estimated Glomerular Filtration Rate (eGFR) is calculated using the 2020 CKD-EPI creatinine equation. This equation utilizes serum creatinine, sex, and age as parameters. The creatinine assay has traceable calibration to isotope dilution-mass spectrometry. Refer to KDIGO guidelines for clinical interpretation. In patients with unstable renal function, e.g. those with acute kidney injury, the eGFR may not accurately reflect actual GFR. eGFR- Date Value Ref Range Status 07/09/2021 Greater than 60 Final P.O.C.T. RESULTS: N/A January 22, [address] PERFORMED: No IV SITE: Inpatient - refer to LDA documentation POST EXAM PIV STATUS: Inpatient see LDA documentation PROCEDURE TYPE: NM Stress: 13.5mCi [id number] was administered IV for Rest Imaging at 0820 by . 36.0 mCi [id number] was administered IV for Stress Imaging at 1035 by [facility]. ADMINISTRATION TIME: 1100 PATIENT DISCHARGED TO: Patient taken to IP transport area for return to RNF/ICU/ED. Is this a therapy: No A Diagnostic radioactive procedure has taken place, with no further precautions necessary other than routine body substance precautions. More information regarding radiation safety can be found using this link: [email or web address] SIGNATURE: RT Warner(R) PATIENT NAME: Marci Galan DATE: January 22, 2025 TIME: 10:42 AM PAGER/CONTACT #:[facility]05-19-2025 NoteHNO ID: [id number] Author: RUBINA MAGANA MD Service: Cardiovascular Medicine Author Type: Physician Type: Procedures Filed: 02/13/2025 20:22 Note Text: Patient Name: Marci Galan : 1955 Ordering Provider: THAD BLOOD Indication: R00.1 Bradycardia, unspecified Type of Monitor: Extended Monitoring-Zio Patch Enrollment Dates: 01/22/2025-02/05/2025 IRHYTHM FINDINGS: Patient had a min HR of 40 bpm around 4:54 am , max HR of 144 bpm, and avg HR of 67 bpm. Predominant underlying rhythm was Sinus Rhythm. 35 Supraventricular Tachycardia runs occurred, the run with the fastest interval lasting 12 beats with a max rate of 194 bpm, the longest lasting 17.7 secs with an avg rate of 109 bpm. Isolated SVEs were rare (<1.0%), SVE Couplets were rare (<1.0%), and SVE Triplets were rare (<1.0%). Isolated VEs were rare (<1.0%), VE Couplets were rare (<1.0%), and no VE Triplets were present. 3 dairy episodes - light headed /flutter correlated with sinus and artifact. Lot of artifacts notedin the monitor. No a.fib noted.[facility]02-07-2025 Instructions * Patient Instructions* Srinivas Aguilar APRN.AUDIO PRODUCTION MANAGER - 10/12/2024 12:45 PM EST Pt will follow up with PCP if not better in 2-3 days or go to emergency department if worsening condition Take sldd-hvw-ubnbvet vitamin D, C, zinc to help your immune system or a good multivitamin that hasall of these and it Can try sinus rinses to help with the sinus congestion Flonase twice a day for at least 7 days to help with the inflammation of the sinuses RESPIRATORY INFECTION GENERAL INFORMATION: An upper respiratory tract infection, or cold, is a viral infection of the airway passages. It can be caused by any one of almost 200 different viruses. Common symptoms include a runny or stuffy nose, sneezing, watery eyes, sore throat, cough, and slight fever. Colds are contagious, especially during the first 3 or 4 days and cannot be cured by antibiotics. They are spread by coughs, sneezes, anddirect contact, especially nwqw-ma-utdo. A respiratory tract infection usually clears up in a few days, but some people may be sick for a week or two. INSTRUCTIONS: 1. Be careful not to blow your nose too hard because this may cause a nosebleed. 2. Use a cool-mist humidifier (vaporizer) to increase air moisture. This will make it easier for you to breathe. Do not use hot steam. 3. Rest as much as possible and get plenty of sleep. 4. Wash your hands often, especially after you blow your nose. Cover your mouth and nose with a tissue when you sneeze or cough. 5. Drink plenty of clear fluids (8 glasses a day) such as water, fruit juice, tea, clear soups, andcarbonated beverages. CONTACT YOUR DOCTOR IF : 1. Your fever lasts more than 3 days. 2. You have a sore throat that gets worse or you see white or yellow spots in your throat. 3. Your cough gets worse or lasts more than 10 days. 4. You develop a rash anywhere on your skin. 5. You have an earache or a headache. 6. You have thick greenish or yellowish discharge from your nose and it has been 10 days of sinus symptoms with pressure/pain in the sinus' or teeth GO TO THE ED IMMEDIATELY IF: 1. You cough up thick yellow, green, murdock, or bloody sputum. 2. You have difficulty breathing, pain in your chest, or your skin or nails look murdock or blue. 3. You have shaking chills or a temperature over 102 F (39 C). documented in this encounterC[facility] NoteHNO ID: [id number] Author: SRINIVAS AGUILAR APRN.ANIVAL Service: ? Author Type: Nurse Practitioner Type: Progress Notes Filed: 10/12/2024 12:50 Note Text: October 12, 2024 HPI: Marci Galan is a 69 year old female who presents today for 4 days with a sore throat, headache,sinus drainage and pressure. Robitussin dm last dose this am PAST MEDICAL HISTORY Diagnosis Date Cervical cancer (HCC) Skin cancer PAST SURGICAL HISTORY Procedure Laterality Date BACK SURGERY HX 2000 BLADDER SURGERY HX HIP SURGERY HX Right 2019 POST-CATARACT LASER SURGERY Bilateral 2022 TOTAL ABDOM HYSTERECTOMY FAMILY HISTORY Problem Relation Age of Onset Prostate Cancer Father Social History Tobacco Use Smoking status: Never Smokeless tobacco: Never Vaping Use Vaping status: Never Used Substance Use Topics Alcohol use: Never Drug use: Never ALLERGIES Allergen Reactions Sulfa (Sulfonamide * Rash There is no immunization history on file for this patient. Current Medications: albuterol HFA (PROVENTIL HFA, VENTOLIN HFA) 90 mcg/actuation inhaler INHALE TWO PUFFS EVERY 4 HOURS NEEDED FOR WHEEZE fluticasone-salmeterol (ADVAIR, WIXELA) 250-50 mcg/dose inhaler INHALE 1 PUFF TWICE DAILY FOR 30 DAYS montelukast (SINGULAIR) 10 mg tablet Take 1 tablet by mouth every afternoon. lisinopril-hydroCHLOROthiazide (ZESTORETIC) 20-12.5 mg per tablet Take 1 tablet by mouth every afternoon. Review of Systems Constitutional: Negative for chills and fever. HENT: Positive for congestion and sore throat. Negative for ear pain. Eyes: Negative for redness. Respiratory: Positive for cough. Negative for shortness of breath. Cardiovascular: Negative for chest pain. Gastrointestinal: Negative for abdominal pain, diarrhea, nausea and vomiting. Genitourinary: Negative. Musculoskeletal: Negative for myalgias. Skin: Negative for rash. All other systems reviewed and are negative. Objective BP 130/87 Pulse 73 Temp (Src) 98 (Oral) Resp 18 Wt 149 lb 14.6 oz (68.0kg) SpO2 98% Physical Exam Constitutional: General: She is not in acute distress. Appearance: Normal appearance. She is not ill-appearing or toxic-appearing. HENT: Head: Normocephalic and atraumatic. Right Ear: Tympanic membrane normal. Left Ear: Tympanic membrane normal. Nose: Congestion present. Mouth/Throat: Mouth: Mucous membranes are moist. Pharynx: Oropharynx is clear. Uvula midline. No posterior oropharyngeal erythema or uvula swelling. Tonsils: No tonsillar exudate or tonsillar abscesses. 1+ on the right. 1+ on the left. Eyes: Conjunctiva/sclera: Conjunctivae normal. Right eye: Right conjunctiva is not injected. No exudate. Left eye: Left conjunctiva is not injected. No exudate. Cardiovascular: Rate and Rhythm: Normal rate and regular rhythm. Pulmonary: Effort: Pulmonary effort is normal. No respiratory distress. Breath sounds: Normal breath sounds. No stridor. No wheezing. Musculoskeletal: Cervical back: Normal range of motion and neck supple. No rigidity or tenderness. Lymphadenopathy: Cervical: No cervical adenopathy. Skin: General: Skin is warm and dry. Capillary Refill: Capillary refill takes less than 2 seconds. Findings: No petechiae or rash. Neurological: Mental Status: She is alert and oriented to person, place, and time. Psychiatric: Mood and Affect: Mood normal. Behavior: Behavior normal. Medical Decision Making: Problems: Low: Acute, uncomplicated illness or injury Data: Unique source(s) for external note(s) reviewed: 1 Unique test result(s) reviewed: 1 Unique test(s) ordered: 1 Risk: Low: Low risk from testing/treatment Medical Decision Making Level: 3 - Low ASSESSMENT/PLAN: 1. Upper respiratory tract infection, unspecified type - ICD9: 465.9, ICD10: J06.9 - Discussed viral etiology and rationale for treatment. - Symptomatic treatment with prn analgesia - Supportive care with fluids and rest - Follow up in 3-5 days if symptoms persist or sooner if worsening of symptoms - FLUTICASONE PROPIONATE 50 MCG/ACTUATION NASAL SPRAY,SUSPENSION Srinivas Aguilar APRN.ANIVAL The above reflects my independent exam and review of the patient's medical record. I saw and examined the patient myself personally. Parts of the HPI, ROS, exam, impression/plan, and testing results may have been copied from the current or previous clinical notes and remain pertinent to today's visit. Current changes have been made and documented today. Voice recognition device used, may be minor grammar or spelling errors.[facility] [id number] History of Present illness Narrative* Srinivas Aguilar APRN.AUDIO PRODUCTION MANAGER - 10/12/2024 12:34 PM EST October 12, 2024 HPI: Marci Galan is a 69 year old female who presents today for 4 days with a sore throat, headache,sinus drainage and pressure. Robitussin dm last dose this am PAST MEDICAL HISTORY Diagnosis Date Cervical cancer (HCC) Skin cancer PAST SURGICAL HISTORY Procedure Laterality Date BACK SURGERY HX 1999 BLADDER SURGERY HX HIP SURGERY HX Right 2019 POST-CATARACT LASER SURGERY Bilateral 2022 TOTAL ABDOM HYSTERECTOMY FAMILY HISTORY Problem Relation Age of Onset Prostate Cancer Father Social History Tobacco Use Smoking status: Never Smokeless tobacco: Never Vaping Use Vaping status: Never Used Substance Use Topics Alcohol use: Never Drug use: Never ALLERGIES Allergen Reactions Sulfa (Sulfonamide * Rash There is no immunization history on file for this patient. Current Medications: albuterol HFA (PROVENTIL HFA, VENTOLIN HFA) 90 mcg/actuation inhaler INHALE TWO PUFFS EVERY 4 HOURSAS NEEDED FOR WHEEZE fluticasone-salmeterol (ADVAIR, WIXELA) 250-50 mcg/dose inhaler INHALE 1 PUFF TWICE DAILY FOR 30 DAYS montelukast (SINGULAIR) 10 mg tablet Take 1 tablet by mouth every afternoon. lisinopril-hydroCHLOROthiazide (ZESTORETIC) 20-12.5 mg per tablet Take 1 tablet by mouth every afternoon. Review of Systems Constitutional: Negative for chills and fever. HENT: Positive for congestion and sore throat. Negative for ear pain. Eyes: Negative for redness. Respiratory: Positive for cough. Negative for shortness of breath. Cardiovascular: Negative for chest pain. Gastrointestinal: Negative for abdominal pain, diarrhea, nausea and vomiting. Genitourinary: Negative. Musculoskeletal: Negative for myalgias. Skin: Negative for rash. All other systems reviewed and are negative. Objective BP 130/87 Pulse 73 Temp (Src) 98 (Oral) Resp 18 Wt 149 lb 14.6 oz (68.0kg) SpO2 98% Physical Exam Constitutional: General: She is not in acute distress. Appearance: Normal appearance. She is not ill-appearing or toxic-appearing. HENT: Head: Normocephalic and atraumatic. Right Ear: Tympanic membrane normal. Left Ear: Tympanic membrane normal. Nose: Congestion present. Mouth/Throat: Mouth: Mucous membranes are moist. Pharynx: Oropharynx is clear. Uvula midline. No posterior oropharyngeal erythema or uvula swelling. Tonsils: No tonsillar exudate or tonsillar abscesses. 1+ on the right. 1+ on the left. Eyes: Conjunctiva/sclera: Conjunctivae normal. Right eye: Right conjunctiva is not injected. No exudate. Left eye: Left conjunctiva is not injected. No exudate. Cardiovascular: Rate and Rhythm: Normal rate and regular rhythm. Pulmonary: Effort: Pulmonary effort is normal. No respiratory distress. Breath sounds: Normal breath sounds. No stridor. No wheezing. Musculoskeletal: Cervical back: Normal range of motion and neck supple. No rigidity or tenderness. Lymphadenopathy: Cervical: No cervical adenopathy. Skin: General: Skin is warm and dry. Capillary Refill: Capillary refill takes less than 2 seconds. Findings: No petechiae or rash. Neurological: Mental Status: She is alert and oriented to person, place, and time. Psychiatric: Mood and Affect: Mood normal. Behavior: Behavior normal. Medical Decision Making: Problems: Low: Acute, uncomplicated illness or injury Data: Unique source(s) for external note(s) reviewed: 1 Unique test result(s) reviewed: 1 Unique test(s) ordered: 1 Risk: Low: Low risk from testing/treatment Medical Decision Making Level: 3 - Low ASSESSMENT/PLAN: 1. Upper respiratory tract infection, unspecified type - ICD9: 465.9, ICD10: J06.9 - Discussed viral etiology and rationale for treatment. - Symptomatic treatment with prn analgesia - Supportive care with fluids and rest - Follow up in 3-5 days if symptoms persist or sooner if worsening of symptoms - FLUTICASONE PROPIONATE 50 MCG/ACTUATION NASAL SPRAY,SUSPENSION Srinivas Aguilar APRN.CNP The above reflects my independent exam and review of the patient's medical record. I saw and examined the patient myself personally. Parts of the HPI, ROS, exam, impression/plan, and testing results may have been copied from the current or previous clinical notes and remain pertinent to today's visit. Current changes have been made and documented today. Voice recognition device used, may be minorgrammar or spelling errors. documented in this encounterC[facility]01-31-[facility]25 History of Present illness Narrative* Isai Escobedo RT(R) - 10/05/2024 1:00 PM EST Radiology Service Progress Note PATIENT NAME: Marci Galan DATE OF SERVICE: October 05, 2024 TIME: 1:10 PM PATIENT IDENTITY VERIFICATION COMPLETED USING TWO (2) IDENTIFIERS: Name and Date of confirmedby patient verbally. FALL SCREENING: Has the patient had 2 falls in the last year or 1 fall with injury or currently using an Ambulatory Assistive Device (Walker, Cane, Wheelchair, Crutches, etc.)? No PATIENT GENDER DATA: Assigned female at . status: : No status:NO. PATIENT RELEVANT IMPLANT DATA REVIEWED: Not Applicable PATIENT PRESENTS WITH AN IMPLANTABLE OR ATTACHED BANANA HANDLER: No RADIOLOGY DEPARTMENT: Mammography PERIPHERAL IV DATA: Not applicable SIGNED BY: RT Zeke(Mateus) October 05, 2024 1:10 PM * Isai Escobedo RT(R) - 10/05/2024 1:00 PM EST The sensitive examination was discussed with the Patient or Patient's Authorized Residence Leasing Agent. Asapplicable, any other physician, advance practice provider, medical student, or other health professional student that will be observing or involved in the sensitive examination for educational or training purposes was discussed with the Patient or Authorized Residence Leasing Agent. The Patient or Authorized Residence Leasing Agent has agreed to proceed with the sensitive examination. (Sensitive examination includes inspection and/or palpation of the breasts, pelvis, prostate and anorectal regions) documented in this encounterC[facility]01-31-2025 NoteHNO ID: [id number] Author: ISAI ESCOBEDO RT(R) Service: ? Author Type: Technologist Type: Progress Notes Filed: 10/05/2024 13:10 Note Text: Radiology Service Progress Note PATIENT NAME: Marci Galan DATE OF SERVICE: October 05, 2024 TIME: 1:10 PM PATIENT IDENTITY VERIFICATION COMPLETED USING TWO (2) IDENTIFIERS: Name and Date of confirmed by patient verbally. FALL SCREENING: Has the patient had 2 falls in the last year or 1 fall with injury or currently using an Ambulatory Assistive Device (Walker, Cane, Wheelchair, Crutches, etc.)? No PATIENT GENDER DATA: Assigned female at . status: : No status: NO. PATIENT RELEVANT IMPLANT DATA REVIEWED: Not Applicable PATIENT PRESENTS WITH AN IMPLANTABLE OR ATTACHED BANANA HANDLER: No RADIOLOGY DEPARTMENT: Mammography PERIPHERAL IV DATA: Not applicable SIGNED BY: RT Alanis (R) October 05, 2024 1:10 [facility] NoteHNO ID: [id number] Author: ISAI ESCOBEDO RT(R) Service: ? Author Type: Technologist Type: Progress Notes Filed: 10/05/2024 13:11 Note Text: The sensitive examination was discussed with the Patient or Patient's Authorized Residence Leasing Agent. As applicable, any other physician, advance practice provider, medical student, or other health professional student that will be observing or involved in the sensitive examination for educational or training purposes was discussed with the Patient or Authorized Residence Leasing Agent. The Patient or Authorized Residence Leasing Agent has agreed to proceed with the sensitive examination. (Sensitive examination includes inspection and/or palpation of the breasts, pelvis, prostate and anorectal regions)[facility]02-20-[facility] History of Present illness Narrative* Guanaco Stokes MD - 10/25/2023 11:54 AM EST NEW PATIENT CONSULTATION The patient is here for evaluation of microscopic hematuria. She denies any lower urinary tract symptoms or gross hematuria. I had seen her approximate 10 years ago for stress urinary incontinence. I performed a sling procedure. She denies any current urinary issues. She had a CT scan several months ago which showed urological issues. LAB RESULTS Creatinine (POCT) Date Value Ref Range Status 08/18/2023 0.80 0.60 - 1.30 mg/dL Final GLUCOSE UA (POCT) (mg/dL) Date Value 10/25/2023 Negative BILIRUBIN UA (POCT) (no units) Date Value 10/25/2023 Negative KETONE UA (POCT) (mg/dL) Date Value 10/25/2023 Negative SPECIFIC GRAVITY UA (POCT) (no units) Date Value 10/25/2023 1.010 HEMOGLOBIN/BLOOD UA (POCT) (no units) Date Value 10/25/2023 Trace-intact (A) PH UA (POCT) (no units) Date Value 10/25/2023 5.5 PROTEIN UA (POCT) (mg/dL) Date Value 10/25/2023 Negative UROBILINOGEN UA (POCT) (E.U./dL) Date Value 10/25/2023 0.2 NITRITE UA (POCT) (no units) Date Value 10/25/2023 Negative LEUKOCYTES UA (POCT) (no units) Date Value 10/25/2023 Trace (A) COLOR UA (POCT) (no units) Date Value 10/25/2023 Yellow CLARITY UA (POCT) (no units) Date Value 10/25/2023 Clear ] REVIEW OF SYSTEMS (10) ALLERGIC See allergies listed above GENERAL:no unintentional weight loss, healthy appearing female in no distress RESPIRATORY: Negative for cough, wheezing or shortness of breath. CARDIOVASCULAR: no leg swelling/edema. GASTROINTESTINAL: no nausea/emesis GENITOURINARY: No history of dysuria, frequency or incontinence LYE PEEL OPERATOR: Negative for abnormal vaginal bleeding, abnormal vaginal discharge MUSCULOSKELETAL: Normal gait, no muscle pain. NEUROLOGIC:alert and oriented SKIN warm and dry PSYCHIATRIC: Normal affect and mood The remainder of the ROS was reviewed and is negative. MEDICATIONS: albuterol HFA (PROVENTIL HFA, VENTOLIN HFA) 90 mcg/actuation inhaler INHALE TWO PUFFS EVERY 4 HOURSAS NEEDED FOR WHEEZE fluticasone-salmeterol (ADVAIR, WIXELA) 250-50 mcg/dose inhaler INHALE 1 PUFF TWICE DAILY FOR 30 DAYS montelukast (SINGULAIR) 10 mg tablet Take 1 tablet by mouth every afternoon. lisinopril-hydroCHLOROthiazide (ZESTORETIC) 20-12.5 mg per tablet Take 1 tablet by mouth every afternoon. ALLERGIES Allergen Reactions Sulfa (Sulfonamide * Rash There is no problem list on file for this patient. HISTORIES PAST MEDICAL HISTORY Diagnosis Date Cervical cancer (HCC) Skin cancer PAST SURGICAL HISTORY Procedure Laterality Date BACK SURGERY HX 2000 BLADDER SURGERY HX HIP SURGERY HX Right 2020 POST-CATARACT LASER SURGERY Bilateral 2022 TOTAL ABDOM HYSTERECTOMY FAMILY HISTORY Problem Relation Age of Onset Prostate Cancer Father SOCIAL HISTORY Social History Tobacco Use Smoking status: Never Smokeless tobacco: Never Substance Use Topics Alcohol use: Never Drug use: Never BP 130/89 Pulse 73 Ht 167.6 cm (5' 6) Wt 67.1 kg (148 lb) SpO2 97% BMI 23.89 kg/m PHYSICAL EXAM:(8) General Appearance: Well appearing, alert, in no acute distress, well-hydrated, well nourished.. Skin: Skin color, texture, turgor normal. Neck: no gross adenopathy; thyroid symmetric. Cardiovascular No peripheral edema Respiratory: Normal respritory effort no wheezing Musculoskeletal: nl gait and range of motion Extremities: No deformities, edema, cyanosis. Neurologic alert and oriented Psych nl affect and mood ASSESSMENT/PLAN: 1. Microscopic hematuria [R31.29] - ICD9: 599.72, ICD10: R31.[address] scan was normal. I will send her urine for cytology. I do not intend to perform a cystoscopyand that she has a abnormal urine cytology. - BLADDER SCAN 2. History of stress urinary incontinence-this resolved with vaginal sling. Guanaco Stokes MD documented in this encounterC[facility]01-12-2024 Note. MICRO - Microbiology PROCEDURE: Urine Culture [*1] SOURCE: Urine BODY SITE: COLLECTED DATE/TIME: 09/14/2023 10:26 EST RECEIVED DATE/TIME: 09/14/2023 17:41 EST START DATE/TIME: 09/14/2023 17:42 EST FREE TEXT SOURCE: FINAL REPORTS Final Report [] Verified Date/Time/Personnel: 09/16/2023 07:55 EST 10,000 - 50,000 cfu/ml Multiple bacterial morphotypes present. Probable Contamination. Suggest recollection if clinically indicated. PRELIMINARY REPORTS Preliminary Report [] Verified Date/Time/Personnel: 09/15/2023 10:09 EST No growth to date Performing Locations *1: This test was performed at: [facility], [address] [place] [address], [facility] , [facility] [place]09-02-2023 Note. MICRO - Microbiology PROCEDURE: Urine Culture [*1] SOURCE: Urine, Clean Catch BODY SITE: COLLECTED DATE/TIME: 08/31/2023 16:14 EST RECEIVED DATE/TIME: 08/31/2023 20:53 EST START DATE/TIME: 08/31/2023 20:54 EST FREE TEXT SOURCE: FINAL REPORTS Final Report [] Verified Date/Time/Personnel: 09/02/2023 08:17 EST 50,000 - 100,000 cfu/ml Escherichia coli PRELIMINARY REPORTS Preliminary Report [] Verified Date/Time/Personnel: 09/01/2023 12:18 EST 50,000 - 100,000 cfu/ml Escherichia coli GUERRERO to follow SUSCEPTIBILITY RESULTS Escherichia coli Antibiotic GUERRERO Dilut GUERRERO Inter Ampicillin <=8 Susceptible Ampicillin/ <=4/2 Susceptible Sulbactam Aztreonam <=4 Susceptible Cefazolin <=2 Susceptible Ciprofloxacin <=0.25 Susceptible Ertapenem <=0.5 Susceptible Gentamicin <=2 Susceptible ID Panel Not Not Applicable Applicable Imipenem <=1 Susceptible Levofloxacin <=0.5 Susceptible Meropenem <=1 Susceptible Minocycline <=4 Susceptible Nitrofurantoin <=32 Susceptible Trimethoprim/ <=0.5/9.5 Susceptible Sulfa Performing Locations *1: This test was performed at: [facility], [address] [place] [address], [facility] , [facility]10-19-2020 History of Present illness Narrative* Juan Jose Blount APRN.AUDIO PRODUCTION MANAGER - 10/19/2020 12:56 PM EST DATE OF SERVICE: 10/19/2020 HISTORY OF PRESENT ILLNESS: The patient is a 65-year-old female presenting to [facility] today for sinus pressure, sore throat, and headache that began 2 days ago. States she has been taking [id number] cold medications with no improvement of symptoms and sinus pressure seems to be getting worse. No fever, sweats or chills. No known COVID exposures. PAST MEDICAL HISTORY: Arthritis, asthma, skin and cervical cancer, hypertension. ALLERGIES: SULFA. MEDICATIONS: 1. Advair. 2. Albuterol. 3. Singulair. 4. Lisinopril/hydrochlorothiazide. 5. Tylenol Cold and Sinus. PHYSICAL EXAMINATION: Blood pressure 156/114, pulse 70, respiration rate 14, temperature 98.0, pulse oximetry 98%. General: Well-appearing, nontoxic, no apparent distress. Cardiovascular: Regular rate and rhythm, no murmurs. Respiratory: Lung sounds clear to auscultation bilaterally, no respiratory distress. HEENT: Bilateral TMs slightly bulging, clear middle ear fluid, noninjected, nonerythematous. Nasal mucosa: Erythema and edema. Posterior pharynx: Postnasal drip. No tonsillar hypertrophy or exudate present. The patient has marked left maxillary and left frontal sinus tenderness. CLINICAL IMPRESSION: Acute sinusitis. PLAN: Prescription for Augmentin sent to pharmacy. I discussed [id number] Coricidin HBP and Flonase, Tylenol, ibuprofen, increased oral hydration. Keep an eye on blood pressure. She is agreeable with plan. No other questions or concerns. Juan Jose Blount CNP [id number] SSI File#: [id number] END OF DOCUMENT / CHANGE LOG FOLLOWS Last Edited By [employer]c. Signed By Juan Jose Blount AUDIO PRODUCTION MANAGER #MOYCO Juan Jose Blount CNP #MOYCO on 10/19/2020 14:39 ET on 10/19/2020 14:39 ET Revision Number - 2 ^^^ Verified/Reviewed by 10/19/20 1439 [facility] PATIENT NAME: MARCI GALAN [address] MEDICAL REC #: [id number] [place] [address] [facility] RE[facility] PHYSICIAN documented in this encounterCleveland Clinic South Pointe HospitalEvalumiddletown emergency department noteNo assessment information availableWKettering Health Main Campus Work Phone: Evaluation note* Diagnosis Microscopic hematuria [R31.29]- Primary Microscopic hematuria [facility]* Diagnosis Upper respiratory tract infection, unspecified type- Primary [facility]* Diagnosis Onset Date Resolution Status Admit Date Anemia acute January 30, 2025 9:15am Bloating acute January 30, 2025 9:15am Emesis acute January 30, 2025 9:15am Epigastric pain acute January 30, 2025 9:15am [facility] Work Phone: Evaluation note* Diagnosis Acute cystitis with hematuria- Primary Acute cystitis Dysuria documented in this encounter [facility]* Diagnosis Primary hypertension- Primary Unspecified essential hypertension Epigastric pain Abdominal pain, epigastric SVT (supraventricular tachycardia) (HCC) Other specified cardiac dysrhythmias Sinus bradycardia Other specified cardiac dysrhythmias documented in this encounter [facility]Rec[facility] (narrative)No reason for referral information availableBlKaiser Foundation Hospital Work Phone: Summary Purpose Family History No Family History Records Found Relationship Condition Age at Onset Recorded Date/T becca father Malignant neoplasm of prostate Unknown Myocardial infarction Unknown Hypertension Unknown mother Arthritis Unknown High blood cholesterol Unknown Malignant neoplasm Unknown Advance Directives No Advanced Directives Records FoundDocuments on File Type Date Recorded Patient Residence Leasing Agent Expl anation Advance Directives and Living Will Power of Director Of Infection Prevention Chief Complaint and Reason for Visit Chief Complaint Admit Date Pre Colon January 30, 2025 9:15a m ABD PAIN February 04, 2025 9:15a m Reason for Visit Admit Date Anemia January 30, 2025 9:15a m Bloating January 30, 2025 9:15a m Emesis January 30, 2025 9:15a m Epigastric pain January 30, 2025 9:15a m Chief Complaint Admit Date Pre Colon January 30, 2025 9:15a m Additional Source Comments INFORMATION SOURCE (unrecogn ized section and content) DATE CREATED AUTHOR 11/13/[address] [facility] DATE CREATED AUTHOR AUTHOR'S ORGANIZ ATION 07/11/2021 [facility] DATE CREATED AUTHOR AUTHOR'S ORGANIZ ATION 10/25/2021 [facility] DATE CREATED AUTHOR AUTHOR'S ORGANIZ ATION 09/19/2023 [facility] [place] DATE CREATED AUTHOR AUTHOR'S ORGANIZ ATION 02/08/2025 [facility] DATE CREATED AUTHOR AUTHOR'S ORGANIZ ATION 03/26/2025 [facility] DATE CREATED AUTHOR AUTHOR'S ORGANIZ ATION 04/04/2025 [facility] DATE CREATED AUTHOR AUTHOR'S ORGANIZ ATION 04/05/2025 [facility] Ce nter Source Comments (unrecognize d section and content) In the event this informatio n is protected by the Federal Confidentiality of Alcohol and Drug Abuse Patient Records regulations: The Federal rules restrict any use of the information to criminally investigate or prosecute any alcohol or drug abuse patient.[facility] the event this information is protected by the Federal Confidentiality of Alcohol and Drug Abuse Patient Records regulations: The Federal rules restrict any use of the information to criminally investigate or prosecute any alcohol or drug abuse patient.[facility] Hospital[facility] the event this information is protected by the Federal Confidentiality of Alcohol and Drug Abuse Patient Records regulations: The Federal rules restrict any use of the information to criminally investigate or prosecute any alcohol or drug abuse patient.[facility] Hospital[facility] the event this information is protected by the Federal Confidentiality of Alcohol and Drug Abuse Patient Records regulations: The Federal rules restrict any use of the information to criminally investigate or prosecute any alcohol or drug abuse patient.[facility] HospitalIn the event this information is protected by the Federal Confidentiality of Alcohol and Drug Abuse Patient Records regulations: The Federal rules restrict any use of the information to criminally investigate or prosecute any alcohol or drug abuse patient.[facility] HospitalIn the event this information is protected by the Federal Confidentiality of Alcohol and Drug Abuse Patient Records regulations: The Federal rules restrict any use of the information to criminally investigate or prosecute any alcohol or drug abuse patient.[facility] HospitalIn the event this information is protected by the Federal Confidentiality of Alcohol and Drug Abuse Patient Records regulations: The Federal rules restrict any use of the information to criminally investigate or prosecute any alcohol or drug abuse patient.[facility] HospitalIn the event this information is protected by the Federal Confidentiality of Alcohol and Drug Abuse Patient Records regulations: The Federal rules restrict any use of the information to criminally investigate or prosecute any alcohol or drug abuse patient.[facility] HospitalIn the event this information is protected by the Federal Confidentiality of Alcohol and Drug Abuse Patient Records regulations: The Federal rules restrict any use of the information to criminally investigate or prosecute any alcohol or drug abuse patient.[facility] HospitalIn the event this information is protected by the Federal Confidentiality of Alcohol and Drug Abuse Patient Records regulations: The Federal rules restrict any use of the information to criminally investigate or prosecute any alcohol or drug abuse patient.[facility] HospitalIn the event this information is protected by the Federal Confidentiality of Alcohol and Drug Abuse Patient Records regulations: The Federal rules restrict any use of the information to criminally investigate or prosecute any alcohol or drug abuse patient.[facility] HospitalIn the event this information is protected by the Federal Confidentiality of Alcohol and Drug Abuse Patient Records regulations: The Federal rules restrict any use of the information to criminally investigate or prosecute any alcohol or drug abuse patient.[facility] Care Teams (unrecognized sec tion and content) Team Status: Active Member Role Status Dates FLORENCIA BARNES Primary Care Provider Active Team Status: Inactive Member Role Status Dates CAMERON GROSSMAN Primary Care Provider Active JORDAN Cerda Attending Provider, Referring Pr neil Active Laboratory Scientist Relationship Specialty Start Date End Date Jasmina Barnesissa ANIVAL [address] [place] [address] PCP - General Family Medicine 07/11/23 Laboratory Scientist Relationship Specialty Start Date End Date Cameron Florencia ANIVAL [address] [place] [address] PCP - General Family Medicine 07/11/23 Laboratory Scientist Relationship Specialty Start Date End Date Florencia Barnes ANIVAL [address] [place] [address] PCP - General Family Medicine 07/11/23 Team Status: Inactive Member Role Status Dates NEW [place] Attending Provider Active Start: January 30, 2025 End: January 30, 2025 Laboratory Scientist Relationship Specialty Start Date End Date Jasmina Barnesissa ANIVAL [address] [place] [address] PCP - General Family Medicine 07/11/23 Team Status: Active Member Role Status Dates NEW Gallegos Primary Care Provider Active Team Status: Inactive Member Role Status Dates NEW [place] Primary Care Provider Active Start: February 01, 2025 End: February 01, 2025 NEW [place] Attending Provider Active Start: February 01, 2025 End: February 01, 2025 [place] Referring Provider Active Start: February 01, 2025 End: February 01, 2025 Team Status: Inactive Member Role Status Dates NEW [place] Attending Provider Active Start: February 04, 2025 End: February 04, 2025 NEW [place] Referring Provider Active Start: February 04, 2025 End: February 04, 2025 NEW [place]leg[place] Primary Care Provider Active Start: February 04, 2025 End: February 04, 2025 Laboratory Scientist Relationship Specialty Start Date End Date Cameron Florencia [address]IV[address] [facility] [address] [place] [address] PCP - General Family Medicine 07/11/23 Team Status: Active Member Role Status Dates NEW [place] Attending Provider Active Start: February 04, 2025 [place] Referring Provider Active Start: February 04, 2025 Florencia Barnes NP-C Primary Care Provider Active Start: February 04, 2025 Laboratory Scientist Relationship Specialty Start Date End Date Florencia Barnes [address] [facility] [address] [facility] [place] [address] PCP - General Family Medicine 07/11/23 Laboratory Scientist Relationship Specialty Start Date End Date Arseniokrishan Florencia ANIVAL [address] [facility] [address] [facility], [place] [id number] PCP - General Family Medicine 07/11/23 Laboratory Scientist Relationship Specialty Start Date End Date Florencia Barnes ANIV[address] [facility] [address] [facility] [place] [address] PCP - General Family Medicine 07/11/23 Goals (unrecognized section and content) Goals may be documented in a n alternate sectionGoals may be documented in an alternate sectionGoals may be documented in an alternate sectionGoals may be documented in an alternate section Reason for Visit (unrecogniz ed section and content) Reason Comments New Patient Dr. Tatum 08-24-2023 - Urine test- Blood in urineFlorencia Barnes 08-31-2023- Treated for UTI Florencia Barnes 09-14-2023- Urine check- blood in urine Has not seen physical blood Reason Comments Sore Throat Sx started x 4 days with a sore throat, headache,sinus drainage and pressure. Robitussin dm last dose this am. Reason Comments UTI Burning/frequency/ur gency/pressure,started throughout the night. Reason Comments Abstract Reason Comments Hospital F/U Reason Comments Results Blood pressures FOR RECORDS PERTAINING TO PATIENTS WHO ARE OR HAVE BEEN ENROLLED IN A CHEMICAL DEPENDENCY/SUBSTANCEABUSE PROGRAM, SOME INFORMATION MAY BE OMITTED. This clinical summary was aggregated from multiple sources. Caution should be exercised in using it in the provision of clinical care. This summary normalizes information from multiple sources, and as a consequence, information in this document may materially change the coding, format and clinical context of patient data. In addition, data may be omitted in some cases. CLINICAL DECISIONS SHOULD BE BASED ON THE PRIMARY CLINICAL RECORDS. [employer] provides no warranty or guarantee of the accuracy or completeness of information in this document.
[2025-04-05] MEDS: Lactated Ringers 1,000 ML 15 ML IV (08:07)
--- NOTE | 2025-04-05 08:37 | PCM.PRE.AN2 ---
ASA Classification* ASA Classification ASA Classification: 3 Assessment & Plan Anesthesia* Anesthesia Assessment Anesthesia Assessment: Discussed sedation and/or anesthesia options, risks, benefits, and alternatives with patient/parents/legal guardian/POA. Questions invited. The patient/parents/legal guardian/POA seems to understand and agrees to proceed with anesthesia plan. Reviewed the physical assessment, medical history, allergy history and patient home medications list prior to surgery/procedure/anesthetic and documented any changes. Performed airway and anesthesia risk assessments. Anesthesia Type Anesthesia Type: MAC History Source History Obtained from:: Patient and Chart Anesthesia Focused Assessment* Temperature: 97.1 F Pulse Rate: 65 Blood Pressure: 105/76 Respiratory Rate: 17 Pulse Ox: 100 Oxygen Delivery Method: Room Air Airway Assessment Mouth opens: >3 cm Mallampati Score: II Teeth Condition: Intact and Caps/Crowns (bottom left) Neck Range of motion (ROM): Full ROM Labs Anesthesia Preop lab: CBC WBC 4.5 K/mm3 (4.4-11.0) 06/02/23 10:51 06/02/23 RBC 4.32 M/mm3 (4.2-5.4) 06/02/23 10:51 06/02/23 Hgb 13.6 g/dL (12.0-15.0) 06/02/23 10:51 06/02/23 Hct 40.2 % (37-47) 06/02/23 10:51 06/02/23 Plt Count 247 K/mm3 (150-450) 06/02/23 10:51 06/02/23 CHEMISTRY Potassium 3.4 mmol/L (3.5-5.1) L 06/02/23 10:51 06/02/23 Sodium 140 mmol/L (136-145) 06/02/23 10:51 06/02/23 BUN 14 mg/dL (7-18) 06/02/23 10:51 06/02/23 Creatinine 0.77 mg/dL (0.55-1.02) 06/02/23 10:51 06/02/23 Glucose 93 mg/dL (74-106) 06/02/23 10:51 06/02/23 TSH 2.39 uIU/mL (0.358-3.74) 06/02/23 10:51 06/02/23 COAG Pre-Assessment Diagnosis/Proposed Procedure Planned Operative Procedure(s): COLONOSCOPY, EGD Anesthesia History 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 When Was Last Pacemaker Check QUESTION #4 FULL TEXT: You/Your Family Experience fever (hyperthermia) with Anesthesia Last Oral Intake Last Oral intake: Last Oral Intake NPO since 00:00 0230 04/05/25 08:08 Meds taken in AM with sips of No 04/05/25 08:08 water? Meds patient instructed to take am of surgery Any additional information?: No PONV PONV - bar and filler assembler: PONV - bar and filler assembler Female Yes 04/02/25 11:35 HX of Motion Sickness No 04/02/25 11:35 HX of N/V After Surgery No 04/02/25 11:35 Non-Smoker Yes 04/02/25 11:35 Duration of Surgery greater No 04/02/25 11:35 than 60 minutes Number of Risk Factors 2 04/02/25 11:35 PONV Score Moderate Risk 04/02/25 11:35 Height & Weight Height & Weight: Anesthesia: Height & Weight Height 5 ft 6 in 04/05/25 08:08 Weight: 62.1 kg 04/05/25 08:08 Body Mass Index (BMI) 22.1 04/05/25 08:08 Respiratory Assessment Respiratory Assessment - bar and filler assembler: Respiratory Tract Infection Hx - bar and filler assembler Hx Respiratory Tract Infection No 04/02/25 11:35 Any additional information?: No STOP Sleep Apnea STOP Sleep Apnea - bar and filler assembler: STOP Sleep Apnea - bar and filler assembler Hx Hypertension Yes: INCREASE 01/2025 PT 04/02/25 11:35 FEELS BP RUNNING TOO LOW, SHE DOESN'T FEEK WELL WITH IT Hx Sleep Apnea No 04/02/25 11:35 CPAP BIPAP Do you snore loudly (louder No 04/02/25 11:35 than talking or can be heard Do you often feel tired/ No 04/02/25 11:35 fatigued/ sleepy during daytime? Has anyone observed you stop No 04/02/25 11:35 breathing during sleep? STOP Results Negative 04/02/25 11:35 QUESTION #5 FULL TEXT : Do you snore loudly (louder than talking or can be heard through closed doors)? Tobacco Use History Tobacco Use History - bar and filler assembler: Tobacco Use History - bar and filler assembler Tobacco Use Smoking Status Never smoker 04/02/25 11:35 Hx Tobacco Use No 04/02/25 11:35 Years Smoking Packs Smoked per Day Smoking Cessation Date was within the last 15 years Hx Smoking Cessation Date Hx Smoking Cessation Counseling Any additional information?: No Hematologic Medial History Hematologic Hx - bar and filler assembler: Hematologic Medical Hx - toe lining closer Hx of Blood Transfusion No 04/02/25 11:35 Hx of Transfusion in last 3 No 04/02/25 11:35 Months Date of Last Transfusion (if within last 3 months) Ever experience any problems No 04/02/25 11:35 with transfusion(s)? Specify any problems Hx of Preganancy in last 3 No 04/02/25 11:35 Months Nurse Filling Out Transfusion VCHRISTIN 04/02/25 11:35 & Questions: Date: 04/02/25 04/02/25 11:35 Time: 11:36 04/02/25 11:35 Patient unable to answer at this time (ie. confused, unrespo /Reproduction History /Reproductive History - bar and filler assembler: /Reproductive Hx- bar and filler assembler Hx Now No 04/02/25 11:35 Gestational Age (in weeks): EDC: Hx Hx Para Hx Section SAB No 04/02/25 11:35 Active Medications Active Medications: Current Medications Generic Name Dose Route Start Last Admin Trade Name Freq PRN Reason Stop Dose Admin Lactated Ringer's 1,000 mls @ 15 mls/hr 04/05/25 07:45 04/05/25 08:07 IV 15 mls/hr .Q48H FELICIA Administration PFSH Medical History Wears glasses Post-menopausal Cancer Injury of back Migraine headache History of hiatal hernia Non-smoker Asthma Shortness of breath on exertion History of stress test History of echocardiogram Hypertension Cataracts, bilateral Skin cancer Cervical cancer Home Medications ?Medication ?Instructions ?Recorded ?Last Taken ?Type albuterol sulfate 90 mcg/actuation 2 puff inhalation Q4H PRN 01/29/25 Unknown History aerosol inhaler (Ventolin HFA) shortness of breath or wheezing fluticasone 250 mcg-salmeterol 50 1 inh inhalation BID 01/29/25 04/05/25 History mcg/dose blistr powdr for inhalation (Advair Diskus) fluticasone propionate 50 1 spray intranasal BID PRN 01/29/25 Unknown History mcg/actuation nasal SEASONALLY spray,suspension (Flonase Allergy Relief) montelukast 10 mg tablet 10 mg PO QDAY 01/29/25 04/04/25 History diphenhydramine 25 1 tab PO QHS PRN sedation 01/30/25 Unknown History mg-acetaminophen 500 mg tablet (Acetaminophen PM) hydrochlorothiazide 12.5 mg capsule 12.5 mg PO DAILY 04/02/25 04/04/25 History lisinopril 40 mg tablet 40 mg PO DAILY 04/02/25 04/04/25 History Allergy/AdvReac Type Severity Reaction Status Date / Time Sulfa (Sulfonamide Allergy Intermediate Rash Verified 04/05/25 08:06 Antibiotics) Family History Father Prostate cancer Myocardial infarction Hypertension Mother Arthritis Hypertension High cholesterol Cancer skin Surgical History H/O bilateral breast reduction surgery S/P total abdominal hysterectomy S/P laser cataract surgery History of hip surgery History of bladder surgery History of back surgery Social History Smoking Status: Never smoker alcohol intake: never substance use type: does not use what type of physical activity do you participate in: walking frequency: 5-6 times per week Review of Systems (Anesthesia) ROS Narrative System reviewed and no additional complaints, except as documented. Physical Exam Const alert and oriented x3 Orientation / Consciousness: awake HEENT dentition normal Resp clear to auscultation bilaterally Resp Narrative: uses Weixler bronchodilator BID once this morning uses albuteral inhaler PRN tuesday preemptive for mowing Auscultation: clear to auscultation bilaterally
--- NOTE | 2025-04-05 08:45 | EGD_PTH ---
PATIENT: RICARDO CURRY LOC: EN U#:[id number] AGE/SX: 69/F ROOM: RE04/05/[address]: Dr. Sunday Maxwell DO : 1955 BED: DIS: 04/05/2025 SPEC #: [id number] RECD: 04/05/25 10:50 STATUS: MIKE YANE #: [id number] ALESSIA: 04/05/25 08:[address]: Sunday Maxwell DEPT: SURGICAL PATHOLOGY RECD BY: Dru Bar ENTERED: 04/05/25 13:10 SP TYPE: EGD BIOPSY VLADIMIR DR: Florencia Lopez, HOGSHEAD STRIPPER-C Tissues: A - Duodenum, NOS B - Gastric mucous membrane Procedures: Immunohistochemical Stains Surgery Specimen Level IV HEADER OPERATION: Colonoscopy, EGD with biopsy PRE-OP DIAGNOSIS: Anemia, epigastric pain, bloating, screening for colon cancer TISSUE SUBMITTED: A- Duodenum biopsy, B- Gastric body biopsy MICROSCOPIC DIAGNOSIS A. Duodenum, biopsy: - Haider gland hyperplasia and gastric metaplasia, suggestive of peptic injury. - Negative for increased intraepithelial lymphocytes. B. Gastric body, biopsy: - Oxyntic mucosa with features of reactive gastropathy. - IHC negative for H.pylori organisms. MICROSCOPIC DESCRIPTION Slides are reviewed. All matched controls reacted appropriately. These tests were developed and their performance characteristics determined by [facility]. They may not have been cleared or approved by the U.S. Food and Drug Administration. The FDA has determined that such clearance or approval is not necessary. The above immunohistochemical/dualISH markers are viewed by the Pathologist. GROSS DESCRIPTION A. Received in fixative is one container labeled with the patient's name and designated Duodenum biopsy. The specimen consists of three irregular fragments of light kaufman soft tissue that in aggregate measure <0.1 to 0.4 cm. Smallest fragment may not survive processing. The specimen is totally submitted in one cassette. B. Received in fixative is one container labeled with the patient's name and designated Gastric body biopsy. The specimen consists of two irregular fragments of light kaufman soft tissue that in aggregate measure 0.2 and 0.5 cm. The specimen is totally submitted in one cassette. [place] 04/05/2025 CPT:66696p1,72856
--- NOTE | 2025-04-05 08:58 | PCM.HP.STD ---
HPI - General General Date of Admission: 04/05/25 Date of Service: 04/05/25 Chief Complaint: Screening colonoscopy and abdominal pain HPI Narrative RICARDO CURRY, is a 69 F who presents for screening colonoscopy and abdominal pain LABS 01/22/2025 HGB 10.9 06/02/2023 HGB 13.6 - Celiac labs were negative in 2017 CT A&P 08/18/2023 Colonic diverticulosis without evidence of acute diverticulitis. Cholelithiasis. Colon last about 10 years ago and revealed polyps - denies any family h/o colon CA - reports she usually has a BM every day, usually formed, can have marble like stools - she feels she fully evacuates - every 2-3 months she has terrible abdominal pain, followed by diarrhea and emesis - this is a lower abdominal pain - Citrucel and Metamucil cause more gas and bloating - occasional BRBPR and believes this is for hemorrhoids - c/o epigastric pain, chest pain last week - was seen in ER and cardiac w/u per patient was unremarkable - this was different from her sporadic episodes of lower abdominal pain - she did have pizza earlier in the day prior to onset of pain - she reports doing a colon cleanse for 10 days and during that time she was only able to eat any organic fruit blended, vegetables pureed, she took supplements for removal of metal, and parasites, she reports drinking a binder also, she completed this 5 days prior to episode on 01/21 with acute chest/epigastric pain - occasional Aleve - one cup of tea daily - she is a non-smoker - denies any EtOH - she avoid fried foods [facility] Medical History Wears glasses Post-menopausal Cancer Injury of back Migraine headache History of hiatal hernia Non-smoker Asthma Shortness of breath on exertion History of stress test History of echocardiogram Hypertension Cataracts, bilateral Skin cancer Cervical cancer Home Medications ?Medication ?Instructions ?Recorded ?Last Taken ?Type albuterol sulfate 90 mcg/actuation 2 puff inhalation Q4H PRN 01/29/25 Unknown History aerosol inhaler (Ventolin HFA) shortness of breath or wheezing fluticasone 250 mcg-salmeterol 50 1 inh inhalation BID 01/29/25 04/05/25 History mcg/dose blistr powdr for inhalation (Advair Diskus) fluticasone propionate 50 1 spray intranasal BID PRN 01/29/25 Unknown History mcg/actuation nasal SEASONALLY spray,suspension (Flonase Allergy Relief) montelukast 10 mg tablet 10 mg PO QDAY 01/29/25 04/04/25 History diphenhydramine 25 1 tab PO QHS PRN sedation 01/30/25 Unknown History mg-acetaminophen 500 mg tablet (Acetaminophen PM) hydrochlorothiazide 12.5 mg capsule 12.5 mg PO DAILY 04/02/25 04/04/25 History lisinopril 40 mg tablet 40 mg PO DAILY 04/02/25 04/04/25 History Allergy/AdvReac Type Severity Reaction Status Date / Time Sulfa (Sulfonamide Allergy Intermediate Rash Verified 04/05/25 08:06 Antibiotics) Family History Father Prostate cancer Myocardial infarction Hypertension Mother Arthritis Hypertension High cholesterol Cancer skin Surgical History H/O bilateral breast reduction surgery S/P total abdominal hysterectomy S/P laser cataract surgery History of hip surgery History of bladder surgery History of back surgery Social History Smoking Status: Never smoker alcohol intake: never substance use type: does not use what type of physical activity do you participate in: walking frequency: 5-6 times per week ROS Constitutional Constitutional: Denies fatigue, fever(s), poor appetite, weight gain or weight loss Gastrointestinal Gastrointestinal: Denies belching, bloating, change in bowel habits, change in stool character, chewing difficulty, coffee ground emesis, constipation, cramping, diarrhea, dyspepsia, dysphagia, early satiety, excessive flatus, fecal incontinence, heartburn, hematemesis, hematochezia, hemorrhoids, loose stools, melena, nausea, odynophagia, rectal bleeding, tenesmus, vomiting or weight changes Vital Signs Vital Signs Vital Signs: 04/05/25 08:08 04/05/25 08:08 04/05/25 08:47 Temperature 97.1 F L 97.1 F L Temperature Source Temporal Pulse Rate 65 65 Respiratory Rate 17 17 Respiratory Pattern Normal Blood Pressure 105/76 105/76 Blood Pressure Mean 85 Blood Pressure Source Monitor Blood Pressure Position Semi-Fowlers Blood Pressure Location Right Arm Pulse Ox 100 100 Oxygen Delivery Method Room Air Room Air Weight Weight: 136 lb 14.513 oz Body Mass Index (BMI) 22.1 Physical Exam Const alert, oriented x3, no apparent distress and healthy appearing General Appearance: cooperative GI normal to inspection, nondistended, normoactive bowel sounds, soft to palpation, non-tender and non-distended Percussion: normal to percussion Rectal Exam: deferred Assessment & Plan Assessment/Plan (1) Anemia: (2) Epigastric pain: (3) Bloating: (4) Screening for colon cancer: PLAN: Assessment and Plan Assessment and Plan (1) Epigastric pain: Status: Acute (2) Bloating: Status: Acute (3) Emesis: Status: Acute (4) Anemia: Status: Acute Orders: Orders Abdomen Limited Today R10.13 - Epigastric pain, R11.10 - Vomiting, unspecified, R14.0 - Abdominal distension (gaseous) H. PYLORI STOOL AG Today R10.13 - Epigastric pain, R11.10 - Vomiting, unspecified, R14.0 - Abdominal distension (gaseous) Medications: New sod picosulf-mag ox-citric ac 10 mg-3.5 gram- 12 gram/175 mL (Clenpiq) 175 mL orally; as directed for split dose bowel prep 350 mL 0RF 1 dose ondansetron take two tablets PO two hours prior to start of bowel prep and one every 4 hours as needed for N/V 4 mg PO Q8H 5 tabs 0RF Plan 69-year-old female presents for initial consultation for colonoscopy. PMH is significant for cervical cancer and skin cancer. Labs performed 01/22/2025 reveal anemia with a hemoglobin of 10.9, this is down from 13.6 on 06/02/2023. Lipase and transaminases were normal. She experiences intermittent episodes of lower abdominal pain, diarrhea and emesis. She denies any weight loss. She reports an episode one week ago of sudden onset severe epigastric/chest pain, cardiac w/u was unremarkable. CT performed 08/2023 revealed cholelithiasis. I have ordered stool testing to r/o H. pylori, ABD US, and scheduled bidirectional endoscopies. If H. pylori stool testing is negative, I will start her on a daily PPI.
--- NOTE | 2025-04-05 09:43 | PCM.POST.ANE ---
Anesthesia: Postop Eval I Current Vital Signs Temperature: 97.4 F Pulse Rate: 71 Blood Pressure: 89/63 Respiratory Rate: 16 Pulse Ox: 99 Oxygen Delivery Method: Room Air Assessment Airway patent: Yes Spontaneous unlabored respirations: Yes Mental status: Asleep nausea: No Vomiting: No Anesthesia Complication: No Fluid Hydration Crystalloid volume administer (ml): 700 Total IV fluid infused: 700 Progress Note Anesthesia document: Postop Eval 1 completed: Yes
--- NOTE | 2025-04-05 09:44 | OP.EGD_ITS ---
Patient Name: Marci Galan Procedure Date: 04/05/2025 9:04 AM Date of : 1955 Age: 69 Procedure: Upper GI endoscopy Indications: Epigastric abdominal pain, Functional Dyspepsia, Dyspepsia, Indigestion Providers: Sunday Maxwell DO Referring MD: Felicity Gallegos Medicines: Monitored Anesthesia Care Patient Profile: This is a 69 year old female. Refer to note in patient chart for documentation of history and physical. Patient has symptoms. Complications: No immediate complications. Procedure: Pre-Anesthesia Assessment: - Prior to the procedure, a History and Physical was performed, and patient medications and allergies were reviewed. The patient is competent. The risks and benefits of the procedure and the sedation options and risks were discussed with the patient. All questions were answered and informed consent was obtained. Patient identification and proposed procedure were verified by the physician in the pre-procedure area. Mental Status Examination: alert and oriented. Airway Examination: normal oropharyngeal airway and neck mobility. Respiratory Examination: clear to auscultation. CV Examination: normal. ASA Grade Assessment: II - A patient with mild systemic disease. After reviewing the risks and benefits, the patient was deemed in satisfactory condition to undergo the procedure. The anesthesia plan was to use monitored anesthesia care (MAC). Immediately prior to administration of medications, the patient was re-assessed for adequacy to receive sedatives. The heart rate, respiratory rate, oxygen saturations, blood pressure, adequacy of pulmonary ventilation, and response to care were monitored throughout the procedure. The physical status of the patient was re-assessed after the procedure. After obtaining informed consent, the endoscope was passed under direct vision. Throughout the procedure, the patient's blood pressure, pulse, and oxygen saturations were monitored continuously. The Colonoscope was introduced through the mouth, and advanced to the third part of the duodenum. Small bowel enteroscopy was deemed necessary. The upper GI endoscopy was accomplished without difficulty. The patient tolerated the procedure well. Scope In: 9:16:33 AM Scope Out: 9:19:54 AM Total Procedure Duration Time 0 hours 3 minutes 21 seconds Findings: The examined esophagus was normal. No gross lesions were noted in the gastric body. Localized mildly erythematous mucosa without bleeding was found in the gastric antrum. Biopsies were taken with a cold forceps for histology. Biopsies were taken with a cold forceps for Helicobacter pylori testing. Verification of patient identification for the specimen was done. Estimated blood loss was minimal. The examined duodenum was normal. Biopsies were taken with a cold forceps for histology. Verification of patient identification for the specimen was done. Estimated blood loss was minimal. Impression: - Normal esophagus. - No gross lesions in the gastric body. - Erythematous mucosa in the antrum. Biopsied. - Normal examined duodenum. Biopsied. Recommendation: - Discharge patient to home (ambulatory). - Resume previous diet. - Continue present medications. - Await pathology results. Procedure Code(s): --- Professional --- 91432, Small intestinal endoscopy, enteroscopy beyond second portion of duodenum, not including ileum; with biopsy, single or multiple CPT copyright 2021 [employer]. All rights reserved. The codes documented in this report are preliminary and upon pick up operator review may be revised to meet current compliance requirements. Sunday Maxwell DO 04/05/2025 9:44:26 AM This report has been signed electronically. Number of Addenda: 0 Note Initiated On: 04/05/2025 9:04 AM
--- NOTE | 2025-04-05 09:44 | OP.PROVAT_ITS ---
04/05/2025 Felicity Gallegos Re : Upper GI endoscopy procedure for Marci Galan Dear [place] This procedure was performed on Saturday, April 05, 2025. My impressions and recommendations are as follows: Impressions : - Normal esophagus. - No gross lesions in the gastric body. - Erythematous mucosa in the antrum. Biopsied. - Normal examined duodenum. Biopsied. Recommendations : - Discharge patient to home (ambulatory). - Resume previous diet. - Continue present medications. - Await pathology results. My findings are described in the full procedure note, which is enclosed. If I can be of further assistance, please feel free to contact me at . Sincerely, Sunday Maxwell, 04/05/2025 9:44:26 AM This report has been signed electronically.
--- NOTE | 2025-04-05 09:49 | OP.COLON_ITS ---
Patient Name: Mraci Galan Procedure Date: 04/05/2025 9:24 AM Date of : 1955 Age: 69 Procedure: Colonoscopy Indications: Screening for colorectal malignant neoplasm Providers: Sunday Maxwell DO Referring MD: Felicity Gallegos Medicines: Monitored Anesthesia Care Patient Profile: This is a 69 year old female. Refer to note in patient chart for documentation of history and physical. Patient has symptoms. Last Colonoscopy: more than 10 years ago. Complications: No immediate complications. Procedure: Pre-Anesthesia Assessment: - Prior to the procedure, a History and Physical was performed, and patient medications and allergies were reviewed. The patient is competent. The risks and benefits of the procedure and the sedation options and risks were discussed with the patient. All questions were answered and informed consent was obtained. Patient identification and proposed procedure were verified by the physician in the pre-procedure area. Mental Status Examination: alert and oriented. Airway Examination: normal oropharyngeal airway and neck mobility. Respiratory Examination: clear to auscultation. CV Examination: normal. ASA Grade Assessment: II - A patient with mild systemic disease. After reviewing the risks and benefits, the patient was deemed in satisfactory condition to undergo the procedure. The anesthesia plan was to use monitored anesthesia care (MAC). Immediately prior to administration of medications, the patient was re-assessed for adequacy to receive sedatives. The heart rate, respiratory rate, oxygen saturations, blood pressure, adequacy of pulmonary ventilation, and response to care were monitored throughout the procedure. The physical status of the patient was re-assessed after the procedure. After I obtained informed consent, the scope was passed under direct vision. Throughout the procedure, the patient's blood pressure, pulse, and oxygen saturations were monitored continuously. The Colonoscope was introduced through the anus and advanced to the cecum, identified by appendiceal orifice and ileocecal valve. The colonoscopy was performed without difficulty. The patient tolerated the procedure well. The quality of the bowel preparation was adequate. The ileocecal valve, appendiceal orifice, and rectum were photographed. Scope In: 9:24:47 AM Scope Withdrawal Time 0 hours 9 minutes 10 seconds Scope Out: 9:34:37 AM Total Procedure Duration Time 0 hours 9 minutes 50 seconds Findings: The perianal and digital rectal examinations were normal. The colon (entire examined portion) appeared normal. A few small-mouthed diverticula were found in the recto-sigmoid colon and sigmoid colon. Non-bleeding external and internal hemorrhoids were found during retroflexion. The hemorrhoids were Grade II (internal hemorrhoids that prolapse but reduce spontaneously). Impression: - The entire examined colon is normal. - Diverticulosis in the recto-sigmoid colon and in the sigmoid colon. - Non-bleeding external and internal hemorrhoids. - No specimens collected. Recommendation: - Repeat colonoscopy in 10 years for screening purposes. - Continue present medications. Procedure Code(s): --- Professional --- 61242, Colonoscopy, flexible; diagnostic, including collection of specimen(s) by brushing or washing, when performed (separate procedure) CPT copyright 2021 [employer]. All rights reserved. The codes documented in this report are preliminary and upon speech pathologist review may be revised to meet current compliance requirements. Sunday Maxwell DO 04/05/2025 9:48:25 AM This report has been signed electronically. Number of Addenda: 0 Note Initiated On: 04/05/2025 9:24 AM
--- NOTE | 2025-04-05 09:49 | OP.PROVAT_ITS ---
04/05/2025 Felicity Gallegos Re : Colonoscopy procedure for Marci Galan Dear [place] This procedure was performed on Saturday, April 05, 2025. My impressions and recommendations are as follows: Impressions : - The entire examined colon is normal. - Diverticulosis in the recto-sigmoid colon and in the sigmoid colon. - Non-bleeding external and internal hemorrhoids. - No specimens collected. Recommendations : - Repeat colonoscopy in 10 years for screening purposes. - Continue present medications. My findings are described in the full procedure note, which is enclosed. If I can be of further assistance, please feel free to contact me at . Sincerely, Sunday Maxwell, 04/05/2025 9:48:25 AM This report has been signed electronically.
--- NOTE | 2025-04-05 10:51 | PCM.POSTANE2 ---
Anesthesia Postop Eval I Sum Postop Eval Completion status Anesthesia document: Postop Eval 1 completed: Yes Anesthesia Postop Eval I Summary Anesthesia Postop Eval I Summary: Anesthesia Postop Eval I: Assessment Summary Airway patent Yes 04/05/25 09:43 [email or web address] Spontaneous unlabored Yes 04/05/25 09:43 [email or web address] respirations Mental status Asleep 04/05/25 09:43 [email or web address] nausea No 04/05/25 09:43 [email or web address] Vomiting No 04/05/25 09:43 [email or web address] Anesthesia Postop Eval I: Fluid Summary Crystalloid volume administer 700 04/05/25 09:43 [email or web address] (ml) Colloids volume administered ( ml) Blood Product volume administered (ml) Total IV fluid infused 700 04/05/25 09:43 [email or web address] Anesthesia Postop Eval I: Summary Notes Anesthesia Complication No 04/05/25 09:43 [email or web address] Anesthesia Complication Comment: Post-operative progress note Anesthesia: Postop Eval II Evaluation Mental status: Awake Pain Level: 0 nausea: No Vomiting: No
== END 2025-04-05 10:22 | disposition home or self-care (01) ==
LOC: EN 07:34 → AC 07:35
PROVIDERS: PCP Nurse Practitioner Family; Referring Provider Nurse Practitioner Family; Visit Provider Internal Medicine Gastroenterology
PROC: 0DJD8ZZ Inspection of Lower Intestinal Tract, Via Natural or Artificial Opening Endoscopic (ICD-10-PCS; CPT 45378; principal; 2025-04-05 08:40)
DX: Z12.11 Encounter for screening for malignant neoplasm of colon (principal); K64.1 Second degree hemorrhoids; K64.4 Residual hemorrhoidal skin tags; K30 Functional dyspepsia; K57.30 Diverticulosis of large intestine without perforation or abscess without bleeding; D64.9 Anemia, unspecified; I10 Essential (primary) hypertension; J45.909 Unspecified asthma, uncomplicated; Z85.41 Personal history of malignant neoplasm of cervix uteri; Z79.51 Long term (current) use of inhaled steroids; Z85.828 Personal history of other malignant neoplasm of skin; Z79.899 Other long term (current) drug therapy
CPT/HCPCS: G0121; 44361; 88305; 88342; J2405

== ENCOUNTER → 2025-04-29 | Outpatient (CLI) | payer MEDICARE, BC, SELFPAY ==
[2025-04-29 11:09] LABS: Hematocrit 35.6 % (37-47); Hemoglobin 12.0 g/dL (12.0-15.0); Immature Granulocytes Count 0.020 X10^3/uL (0.0-0.0); Mean Corp Hgb Conc 33.7 g/dL (32-36); Mean Corpuscular Volume 90.6 fL (81-99); Mean Platelet Vol. 10.3 fl (6.2-12.0); NRBC Flagged by Analyzer 0 % (0-5); Platelet Count 241 K/mm3 (150-450); RBC Distribution Width CV 12.1 % (11.6-14.6); RBC Distribution Width SD 40.6 fl (35.1-43.9); Red Blood Count 3.93 M/mm3 (4.2-5.4); White Blood Count 5.3 K/mm3 (4.4-11.0)
== END | disposition home or self-care (01) ==
PROVIDERS: PCP Nurse Practitioner Family; Referring Provider Nurse Practitioner Acute Care; Visit Provider Nurse Practitioner Acute Care
DX: R10.13 Epigastric pain (principal)
CPT/HCPCS: 36415; 85025